=== PATIENT | female | born 1950 | race Caucasian/White ===

== ENCOUNTER 2023-05-16 07:24 | Outpatient (CLI) | payer MEDICARE, SELFPAY ==
[2023-05-16 18:37] LABS: Basophils Absolute Auto 0.1 K/mm3 (0.0-0.1); Eosinophils Absolute Auto 0.4 K/mm3 (0-0.3); Eosinophils Percent Auto 4.3 % (0-4.4); Hematocrit 43.8 % (37.0-47.0); Hemoglobin 13.5 g/dL (12.0-15.0); Immature Granulocyte Absolute 0.03 K/mm3 (0.00-0.031); Immature Granulocyte Percent A 0.3 % (0-0.5); Lymphocytes Absolute Auto 2.56 K/mm3 (0.9-3.2); Lymphocytes Percent Auto 26.8 % (18.3-44.2); Mean Corpuscular HGB Conc 30.8 g/dl (32-36); Mean Corpuscular Volume 100.7 fl (80-100); Mean Platelet Volume 11.9 fl (7.4-10.4); Monocytes Absolute Auto 0.9 K/mm3 (0.1-0.6); Monocytes Percent Auto 9.1 % (2.6-8.5); Neutrophils Absolute Auto 5.6 K/mm3 (1.3-6.7); Neutrophils Percent Auto 58.5 % (45.5-73.1); Platelet Count Result 203 k/mm3 (150-375); Red Blood Count 4.35 M/mm3 (4.2-5.4); Red Cell Distribution Width 14.6 % (11.5-14.5); White Blood Count 9.6 K/mm3 (4.5-10.0)
[2023-05-16 18:59] LABS: Albumin Level 4.3 g/dL (3.5-5.1); Anion Gap 6 mmol/L (8-16); Blood Urea Nitrogen 35 mg/dL (7-17); Calcium 10.4 mg/dL (8.4-10.2); Carbon Dioxide 28 mmol/L (22-30); Chloride 105 mmol/L (98-107); Cholesterol 158 mg/dL (0-200); Estimated Glomerular Filt Rate 25; Glucose 136 mg/dL (65-110); HDL Direct 48 mg/dL; Phosphorus 4.2 mg/dL (2.5-4.5); Potassium 4.7 mmol/L (3.4-5.0); Sodium 139 mmol/L (137-145); Triglycerides 84 mg/dL (<150)
[2023-05-16 19:10] LABS: LDL Cholesterol Direct 69 mg/dL
[2023-05-16 19:16] LABS: Vitamin D 25 Hydroxy 71.4 ng/mL
[2023-05-16 19:38] LABS: Parathyroid Intact 57.5 pg/mL (7.5-53.5)
[2023-05-16 19:55] LABS: Creatinine Urine 75.6 mg/dL
[2023-05-16 20:00] LABS: MALB Creatinine Ratio 56.9 mg/g (0-30)
[2023-05-16 21:12] LABS: Hemoglobin A1C 7.6 % (<5.7)
== END 2023-05-16 07:25 | disposition home or self-care (01) ==
PROVIDERS: PCP Nurse Practitioner Adult Health; Visit Provider Nurse Practitioner Adult Health
DX: I12.9 Hypertensive chronic kidney disease with stage 1 through stage 4 chronic kidney disease, or unspecified chronic kidney disease (principal); N18.4 Chronic kidney disease, stage 4 (severe); R73.03 Prediabetes; E55.9 Vitamin D deficiency, unspecified
CPT/HCPCS: 36415; 80061; 80069; 82043; 82306; 83036; 83970; 85025

== ENCOUNTER 2023-09-17 09:46 | Outpatient (CLI) | payer MEDICARE, SELFPAY ==
[2023-09-17 20:21] LABS: Creatinine Urine 197.9 mg/dL; Total Protein Urine Random 22 mg/dL; Ur Ttl Prot Creatinine Ratio 0.11 mg/mg (0-0.20)
[2023-09-17 22:36] LABS: Albumin Level 4.1 g/dL (3.5-5.1); Anion Gap 9 mmol/L (8-16); Blood Urea Nitrogen 31 mg/dL (7-17); Calcium 10.9 mg/dL (8.4-10.2); Carbon Dioxide 26 mmol/L (22-30); Chloride 104 mmol/L (98-107); Estimated Glomerular Filt Rate 21; Glucose 129 mg/dL (65-110); Phosphorus 3.3 mg/dL (2.5-4.5); Potassium 4.3 mmol/L (3.4-5.0); Sodium 139 mmol/L (137-145)
== END 2023-09-17 09:47 | disposition home or self-care (01) ==
LOC: ANHBWCLAB 09:50
PROVIDERS: PCP Nurse Practitioner Adult Health; Visit Provider Internal Medicine Nephrology
DX: I12.9 Hypertensive chronic kidney disease with stage 1 through stage 4 chronic kidney disease, or unspecified chronic kidney disease (principal); N18.4 Chronic kidney disease, stage 4 (severe)
CPT/HCPCS: 36415; 80069; 82570; 84156

== ENCOUNTER 2024-01-14 07:49 | Outpatient (CLI) | payer MEDICARE, SELFPAY ==
[2024-01-14 19:05] LABS: Albumin Level 4.1 g/dL (3.5-5.1); Anion Gap 6 mmol/L (4-12); Blood Urea Nitrogen 36 mg/dL (7-17); Calcium 10.4 mg/dL (8.4-10.2); Carbon Dioxide 25 mmol/L (22-30); Chloride 104 mmol/L (98-107); Estimated Glomerular Filt Rate 25; Glucose 103 mg/dL (65-110); Phosphorus 3.5 mg/dL (2.5-4.5); Potassium 4.8 mmol/L (3.4-5.0); Sodium 135 mmol/L (137-145)
[2024-01-14 19:33] LABS: Creatinine Urine 73.6 mg/dL; Total Protein Urine Random 20 mg/dL; Ur Ttl Prot Creatinine Ratio 0.27 mg/mg (0-0.20)
[2024-01-14 21:30] LABS: Parathyroid Intact 45.1 pg/mL (7.5-53.5)
== END 2024-01-14 07:50 | disposition home or self-care (01) ==
PROVIDERS: PCP Nurse Practitioner Adult Health; Visit Provider Internal Medicine Nephrology
DX: E55.9 Vitamin D deficiency, unspecified (principal); N25.81 Secondary hyperparathyroidism of renal origin; I12.9 Hypertensive chronic kidney disease with stage 1 through stage 4 chronic kidney disease, or unspecified chronic kidney disease; N18.4 Chronic kidney disease, stage 4 (severe)
CPT/HCPCS: 36415; 80069; 82306; 82570; 83970; 84156

== ENCOUNTER 2024-01-21 11:11 | Outpatient (CLI) | payer MEDICARE, SELFPAY ==
[2024-01-21 18:48] LABS: Basophils Absolute Auto 0.1 K/mm3 (0.0-0.1); Basophils Percent Auto 0.7 % (0.2-1.2); Eosinophils Absolute Auto 0.3 K/mm3 (0-0.3); Eosinophils Percent Auto 3.4 % (0-4.4); Hematocrit 43.4 % (37.0-47.0); Hemoglobin 13.7 g/dL (12.0-15.0); Immature Granulocyte Absolute 0.02 K/mm3 (0.00-0.031); Immature Granulocyte Percent A 0.2 % (0-0.5); Lymphocytes Absolute Auto 3.07 K/mm3 (0.9-3.2); Lymphocytes Percent Auto 31.4 % (18.3-44.2); Mean Corpuscular HGB Conc 31.6 g/dl (32-36); Mean Corpuscular Hemoglobin 31.4 pg (26-34); Mean Corpuscular Volume 99.3 fl (80-100); Mean Platelet Volume 11.8 fl (7.4-10.4); Monocytes Absolute Auto 0.9 K/mm3 (0.1-0.6); Monocytes Percent Auto 9.6 % (2.6-8.5); Neutrophils Absolute Auto 5.4 K/mm3 (1.3-6.7); Neutrophils Percent Auto 54.7 % (45.5-73.1); Platelet Count Result 200 k/mm3 (150-375); Red Blood Count 4.37 M/mm3 (4.2-5.4); Red Cell Distribution Width 13.6 % (11.5-14.5); White Blood Count 9.8 K/mm3 (4.5-10.0)
[2024-01-21 20:04] LABS: Thyroid Stimulating Hormone 0.831 uIU/mL (0.465-4.680)
[2024-01-21 21:27] LABS: Hemoglobin A1C 6.3 % (<5.7)
== END 2024-01-21 11:12 | disposition home or self-care (01) ==
PROVIDERS: PCP Nurse Practitioner Adult Health; Visit Provider Nurse Practitioner Adult Health
DX: R73.03 Prediabetes (principal); R61 Generalized hyperhidrosis
CPT/HCPCS: 36415; 83036; 84443; 85025

== ENCOUNTER 2024-05-13 12:10 | Outpatient (CLI) | payer MEDICARE, SELFPAY ==
[2024-05-13 20:22] LABS: Albumin Level 4.3 g/dL (3.5-5.1); Anion Gap 10 mmol/L (4-12); Blood Urea Nitrogen 40 mg/dL (7-17); Calcium 10.4 mg/dL (8.4-10.2); Carbon Dioxide 24 mmol/L (22-30); Chloride 100 mmol/L (98-107); Creatinine Urine 78.3 mg/dL; Estimated Glomerular Filt Rate 25; Glucose 100 mg/dL (65-110); Phosphorus 3.4 mg/dL (2.5-4.5); Potassium 4.6 mmol/L (3.4-5.0); Sodium 134 mmol/L (137-145); Total Protein Urine Random 13 mg/dL; Ur Ttl Prot Creatinine Ratio 0.17 mg/mg (0-0.20)
== END 2024-05-13 12:11 | disposition home or self-care (01) ==
PROVIDERS: PCP Family Medicine; Visit Provider Internal Medicine Nephrology
DX: I12.9 Hypertensive chronic kidney disease with stage 1 through stage 4 chronic kidney disease, or unspecified chronic kidney disease (principal); N18.4 Chronic kidney disease, stage 4 (severe)
CPT/HCPCS: 36415; 80069; 82570; 84156

== ENCOUNTER 2024-06-04 09:20 | Outpatient (CLI) | payer MEDICARE, SELFPAY ==
[2024-06-04 10:04] LABS: Alanine Aminotransferase 16 U/L (6-35); Albumin Level 4.2 g/dL (3.5-5.1); Alkaline Phosphatase 47 U/L (38-126); Anion Gap 6 mmol/L (4-12); Aspartate Amino Transferase 29 U/L (14-36); Bilirubin,Total 0.6 mg/dL (0.2-1.3); Blood Urea Nitrogen 43 mg/dL (7-17); Calcium 10.1 mg/dL (8.4-10.2); Carbon Dioxide 28 mmol/L (22-30); Chloride 102 mmol/L (98-107); Estimated Glomerular Filt Rate 23; Glucose 113 mg/dL (65-110); Phosphorus 3.7 mg/dL (2.5-4.5); Potassium 4.5 mmol/L (3.4-5.0); Sodium 136 mmol/L (137-145)
[2024-06-04 10:47] LABS: Parathyroid Intact 56.5 pg/mL (14.5-75.2)
[2024-06-04 10:50] LABS: Free T4 Free Thyroxine 0.91 ng/mL (0.78-2.19)
[2024-06-04 10:52] LABS: Creatinine Urine 54.1 mg/dL
[2024-06-04 10:54] LABS: Creatinine 24 Hour Urine 0.9 gm/24 (0.8-1.8); Total Volume 24 Hour Urine 1800 ml
[2024-06-05 08:39] LABS: Protein, Total 6.4 g/dL (6.1-8.1)
[2024-06-05 12:33] LABS: Ionized Calcium 5.3 mg/dL (4.7-5.5)
[2024-06-08 10:14] LABS: Total Volume 1800 mL
[2024-06-08 15:43] LABS: Albumin 3.9 g/dL (3.8-4.8); Alpha 1 Globulin 0.3 g/dL (0.2-0.3); Alpha 2 Globulin 0.8 g/dL (0.5-0.9); Beta 1 Globulin 0.5 g/dL (0.4-0.6); Gamma Globulin 0.7 g/dL (0.8-1.7)
[2024-06-16 07:39] LABS: Reference Lab Test Name Alk Phos Bone Spec
[2024-06-16 07:40] LABS: Reference Lab Test Result 9.3
[2024-06-19 20:23] LABS: Collagen Type I C-Telopeptide 728 pg/mL
== END 2024-06-04 09:21 | disposition home or self-care (01) ==
PROVIDERS: PCP Family Medicine; Visit Provider Internal Medicine
DX: M81.0 Age-related osteoporosis without current pathological fracture (principal); N18.4 Chronic kidney disease, stage 4 (severe); E55.9 Vitamin D deficiency, unspecified; R73.03 Prediabetes
CPT/HCPCS: 36415; 80053; 81050; 82330; 82340; 82523; 82570; 83970; 84100; 84155; 84165; 84439; 84443

== ENCOUNTER 2024-06-25 08:31 | Outpatient (CLI) | payer MEDICARE, SELFPAY ==
--- NOTE | ~2024-06-25 | CT_ITS ---
EXAMINATION:CT diagnostic chest wo con DATE: 06/25/2024 08:44 INDICATION: Other nonspecific abnormal finding of lung field. TECHNIQUE: Computed tomography (CT) of the chest was performed without intravenous contrast. Automate d exposure control and iterative reconstruction technique were employed. The dose-length product (DLP ) was 199.79 mGy-cm. COMPARISON: None. FINDINGS: There is mild scarring at the lung apices. There is moderate emphysema. There is mild atele ctasis bilaterally. There are a few nodules in the lungs measuring up to 3 mm, likely benign. No pleu ral effusion. The heart size is normal. There are coronary artery calcifications. No pericardial effu salome. The central pulmonary arteries are enlarged, consistent with pulmonary arterial hypertension. P artially visualized is a supraumbilical ventral hernia containing fat. Partially visualized are numer ous cysts and hemorrhagic cysts in the kidneys. There is a 3.4 cm mass in right kidney measuring soft tissue attenuation. There are chronic fractures of multiple vertebral bodies. There is moderate thor acic spondylosis. IMPRESSION: 1. Moderate emphysema. 2. 3.4 cm right kidney mass, which may be a hemorrhagic cyst or less likely a neoplasm. Abdomen MRI o r CT without and with contrast is recommended. Reviewed, dictated and finalized at location A. IMPRESSION: 1. Moderate emphysema. 2. 3.4 cm right kidney mass, which may be a hemorrhagic cyst or less likely a n eoplasm. Abdomen MRI or CT without and with contrast is recommended.
== END 2024-06-25 08:32 | disposition home or self-care (01) ==
LOC: GOSHIMG 08:33
PROVIDERS: PCP Family Medicine; Visit Provider Family Medicine
DX: R91.8 Other nonspecific abnormal finding of lung field (principal); J43.9 Emphysema, unspecified; N28.89 Other specified disorders of kidney and ureter
CPT/HCPCS: 71250

== ENCOUNTER 2024-09-17 12:46 | Outpatient (CLI) | payer MEDICARE, SELFPAY ==
[2024-09-17 20:14] LABS: Albumin Level 4.3 g/dL (3.5-5.1); Anion Gap 6 mmol/L (4-12); Blood Urea Nitrogen 42 mg/dL (7-17); Carbon Dioxide 25 mmol/L (22-30); Chloride 107 mmol/L (98-107); Estimated Glomerular Filt Rate 22; Glucose 158 mg/dL (65-110); Parathyroid Intact 53.4 pg/mL (14.5-75.2); Phosphorus 3.6 mg/dL (2.5-4.5); Potassium 4.3 mmol/L (3.4-5.0); Sodium 138 mmol/L (137-145)
[2024-09-17 21:05] LABS: Creatinine Urine 63.5 mg/dL; Total Protein Urine Random 14 mg/dL; Ur Ttl Prot Creatinine Ratio 0.22 mg/mg (0-0.20)
[2024-09-17 21:19] LABS: Vitamin D 25 Hydroxy 75.4 ng/mL
== END 2024-09-17 12:47 | disposition home or self-care (01) ==
LOC: ANHBWCLAB 12:47
PROVIDERS: Visit Provider Internal Medicine Nephrology
DX: N25.81 Secondary hyperparathyroidism of renal origin (principal); E55.9 Vitamin D deficiency, unspecified; I12.9 Hypertensive chronic kidney disease with stage 1 through stage 4 chronic kidney disease, or unspecified chronic kidney disease; N18.4 Chronic kidney disease, stage 4 (severe)
CPT/HCPCS: 36415; 80069; 82306; 82570; 83970; 84156

== ENCOUNTER 2024-11-04 10:01 | Outpatient (CLI) | payer MEDICARE, SELFPAY ==
--- NOTE | ~2024-11-04 | DEXA_ITS ---
Bone Density Report Name: TIMUR BARBOUR Age: 73 Sex: Female Ethnicity: White Date of : 1950 Indication: postmenopausal; screening for osteoporosis; parental hip fracture; height loss; prior fracture; end stage renal disease; hysterectomy; Referring Provider: THOMAS MARIN Study: Bone densitometry was performed. Exam Date: November 04, 2024 Accession number: [id number] Bone Density: Region BMD T-score Z-score Classification AP Spine(L1-L4) 0.851 -1.8 0.4 Osteopenia Femoral Neck (Left) 0.613 -2.1 -0.2 Osteopenia Total Hip (Left) 0.763 -1.5 0.1 Osteopenia Femoral Neck (Right) 0.563 -2.6 -0.7 Osteoporosis Total Hip (Right) 0.713 -1.9 -0.3 Osteopenia Total Hip Mean 0.738 -1.7 -0.1 Osteopenia World Health Organization criteria for BMD impression classify patients as: Normal (T-score at or above -1.0), Osteopenia (T-score between -1.0 and -2.5), or Osteoporosis (T-score at or below -2.5). 10-year Fracture Risk: FRAX not reported because: Some T-score for Spine Total or Hip Total or Femoral Neck at or below -2.5 Prior hip or vertebral fracture Treated for osteoporosis Clinical Information Provided by Patient: Have had a previous hip or vertebral fracture Has had a low trauma fracture Parent has had a hip fracture Smokes Is being treated for osteoporosis Has used the following medications: Boniva (i.e. ibandronate), Fosamax (i.e. alendronate), Vitamin D, Calcium Has the following medical conditions: End stage renal disease, Hysterectomy Patient maximum height was 64 Menopause Age: 44 No regular weight bearing exercise Drinks caffeinated beverages Onset of menses at age 14 Number of children 1 Impression: The patient has established osteoporosis, based on the Right Femoral Neck T-score and the existence of a prior fracture. The patient has risk factors, including: parental hip fracture, smoking, previous fracture. Discussion: It is important to ask patients whether they are taking their medications and to encourage continued and appropriate compliance with their osteoporosis therapies to reduce fracture risk. It is also important to review their risk factors and encourage appropriate calcium and vitamin D intakes, exercise, fall prevention and other lifestyle measures. Follow-Up: Consider a repeat BMD and Vertebral Fracture Assessment (VFA) exam in 2 years or sooner if medically necessary, to reassess this patient's status. Reported by: SHIRLEY on 11/04/2024 10:35:00 AM. Reviewed, dictated and finalized at location ARoby COLON
--- OUTSIDE RECORDS SUMMARY | 2024-11-05 23:00 | XMS_ITS | Data Portability ---
[facility] [address] [place] [address] Care Team Providers Care Tube Teller Name Role Phone GRISELDA MARQUEZ Primary Care Provider SERENE GONZÁLES Sample Steamer JERRY WILKINS Orthopedic Surgeon [phone] THOMAS MARIN Foundry Finisher Assessment No assessment recorded. Plan of Treatment Reminders Order Date Submit Date Provider Last Modified By Organization Details Last Modified Time Details Appointments None record ed. Lab None record ed. Referral None record ed. Procedures None record ed. Surgeries None record ed. Imaging None record ed. Medication Orders None record ed. Patient TargetsNo targets recorded. Patient Instructions Encounter Date Encounter Id Patient Instructions Last Modified By Organization Details Last Modified Time 08/06/2024 [id number] Quitting Tobacco : Care Instructions [email or web address] Not available 08/06/2024 17:03:05 osteoporosis: care instructions [email or web address] Not available 08/06/2024 17:03:05 A healthy lifestyle: care instructions [email or web address] Not available 08/06/2024 17:03:05 I saw the patien t with the resident.?? I agree with the resident's assessment and plan as documented -Patient with chronic medical problems however records not available -Repeat blood pressure WNL -RTC in 3 months MD larry [email or web address] Not available 08/06/2024 10:07:58 Reason for Referral None Reported. Results Created Date Observation Date Name Description Value Unit Range Abnormal Flag Note LastModifiedBy Organization Detail LastModifiedTime Result Notes None recorded. Problems Name Problem SNOMED Code Status Onset Date Resolution Date Notes Provider Name and Address Organization Details Recorded Time Obesity 774213971 Active 2023 GRISELDA MARQUEZ MD Attn: Dulceherrera meyers,[address], [place], [address], [facility] - [facility] 4 09:29:25 Osteoporosis 73852209 Active 2023 Follows with endocrin ology. GRISELDA MARQUEZ MD Attn: Elizabeth [address]yers[address] [place], [address], [facility] - [facility] 5 12:06:43 Osteoporotic fracture Active 2023 GRISELDA MARQUEZ MD Attn: Elizabeth meyers,[address] [place], [address], [facility] - [facility] 4 09:39:57 Gastroesopha geal reflux disease 101690469 Active 2023 GRISELDA MARQUEZ MD Attn: Elizabeth meyers,[address] [place], [address], [facility] - [facility] 4 09:42:38 Neuropathy 756828890 Active 2023 GRISELDA MARQUEZ MD Attn: Elizabeth meyers,[address], [place], [address], [facility] - [facility] 4 10:50:23 Chronic kidney disease 731881399 Active 2023 Follows with nephrolo gy. 12/5- Cr 2.20, BUN 42, GFR 22 GRISELDA MARQUEZ MD Attn: Dulceherrera [address] [place], [address], [facility] - [facility] 4 23:35:22 Problem Notes None recorded. Procedures Surgical History Date Name Laterality Status Provider Name and Address Organization Details Recorded Time colonoscopy completed Rachel Traylor MA [place] - [facility] 08/06/2024 09:00:42 transposition of ulnar nerve at elbow completed GRISELDA MARQUEZ MD Attn: Accounting[address] [place], [address], [facility] - [facility] 08/06/2024 09:36:02 Imaging Results None recorded. Procedure Notes None recorded. Medical Equipment None Reported. Allergies Allergen ID Allergen Name Allergen Category Reaction Reaction Severity Criticality Documentation Date Start Date Code Code System Note Provider Name and Address Organization Details Recorded Time [id number] Ozempic medicatio n nausea severe Not available 08/06/202419903 07 RxNorm Not Available Not Available Not Available [id number] Iodinated contrast media (substanc e) medicatio n Not available Not available high 10/29/2024 71973 2004 SNOMED Not Available Not Available Not Available Medications Name Sig Start Date Stop Date Status Note LastModified by Organization Details LastModified Time atorvasta tin 40 mg tablet TAKE 1 TABLET BY MOUTH EVERY DAY AT BEDTIME active Not Available Not Available No t Available carvedilo l 25 mg tablet TAKE 1 TABLET BY MOUTH EVERY 12 HOURS WITH A MEAL/DEUCE D active Not Available Not Available No t Available carvedilo l 12.5 mg tablet TAKE 1 TABLET BY MOUTH TWICE DAILY WITH FOOD 08/06 completed stoped Not Available Not Available Not Available tizanidin e 4 mg tablet TAKE 1 TABLET BY MOUTH TWICE DAILY NEEDED active Prescrib ed by pain manageme nt Not Available Not Available Not Available prednison e 20 mg tablet TAKE 3 TABLETS BY MOUTH DAILY FOR 5 DAYS 08/06 completed Not Available Not Available Not Available Accu-Chek Softclix Lancets CHECK BLOOD SUGAR THREE TIMES DAILY DIRECTED 08/06 completed Not Available Not Available Not Available aspirin 81 mg tablet,de layed release Take 1 tablet every day by oral route. active Not Available Not Available No t Available tramadol 50 mg tablet TAKE 1 TABLET BY MOUTH EVERY 12 HOURS NEEDED FOR PAIN active Prescrib ed by pain manageme nt Not Available Not Available Not Available gabapenti n 300 mg capsule TAKE TWO CAPSULES BY MOUTH DAILY AT BEDTIME active Not Available Not Available No t Available omeprazol e 20 mg capsule,d elayed release Take 1 capsule every day by oral route. 2024 active Not Available Not Available Not Avai lable albuterol sulfate HFA 90 mcg/actua tion aerosol inhaler INHALE 2 PUFFS BY MOUTH EVERY 4-6 HOURS NEEDED FOR SHORTNES S OF BREATH OR WHEEZING 08/06 completed stopped Not Available Not Available Not Available fluticaso ne propionat e 50 mcg/actua tion nasal spray,brandon pension 1 spray each nostril once daily 2024 active Not Available Not Available Not Avai lable calcitrio l 0.25 mcg capsule TAKE 1 CAPSULE BY MOUTH 3 TIMES A WEEK active Prescrib ed by endo Not Available Not Available Not Available duloxetin e 30 mg capsule,d elayed release TAKE 1 CAPSULE BY MOUTH DAILY active Not Available Not Available No t Available duloxetin e 60 mg capsule,d elayed release TAKE 1 CAPSULE BY MOUTH DAILY active Not Available Not Available No t Available BD Ultra-Fin e Short Pen Needle 31 gauge x 5/16 DIRECTED WITH OZEMPIC 08/06 completed Not Available Not Available Not Available diclofena c 1 % topical gel APPLY 2 GRAMS TOPICALL Y TO THE AFFECTED AREA THREE TIMES DAILY active Not Available Not Available No t Available buprenorp yeni 7.5 mcg/hour weekly transderm al patch APPLY 1 PATCH TOPICALL Y TO THE SKIN 1 TIME A WEEK 10/27 completed stopped Not Available Not Available Not Available teriparat gamaliel 20 mcg/dose (620 mcg/2.48 mL) subcutane ous pen injector 08/06 completed Not Available Not Available Not Available Ozempic 0.25 mg or 0.5 mg (2 mg/3 mL) subcutane ous pen injector ADMINIST ER 0.25 MG UNDER THE SKIN WEEKLY FOR 4 WEEKS 08/06 completed stopped Not Available Not Available Not Available Vitals Date Recorded Body height Provider Name an d Address Organization Details Last Updated DateTime 08/06/2024 157.48 cm WESLEY Lezama [facility] 024 08:50:56 Date Recorded Body mass index (BMI) Body weight Provider Name and Address Organization Details Last Updated DateTime 08/06/2024 35.3 kg/m2 27456.03 g WESLEY Lezama [facility] 08/06/2024 08:51:05 Date Recorded Body temperature Provider Name a nd Address Organization Details Last Updated DateTime 08/06/2024 98.3 [degF] WESLEY Lezama [facility] 2023 08:51:54 Date Recorded Heart rate Provider Name an d Address Organization Details Last Updated DateTime 08/06/2024 68 /min Rachel WESLEY Traylor - [facility] 024 08:53:49 Date Recorded Respiratory rate Provider Name a nd Address Organization Details Last Updated DateTime 08/06/2024 18 /min WESLEY Lezama - [facility] 024 08:55:10 Date Recorded Body height Provider Name an d Address Organization Details Last Updated DateTime 10/27/2024 157.48 cm Rachel WESLEY Traylor - [facility] 025 11:26:33 Date Recorded Body mass index (BMI) Body weight Provider Name and Address Organization Details Last Updated DateTime 10/27/2024 36.1 kg/m2 52930.4 g Rachel WESLEY Traylor - [facility] 10/27/2024 11:26:40 Date Recorded Body temperature Provider Name a nd Address Organization Details Last Updated DateTime 10/27/2024 98.3 [degF] Rachel WESLEY Traylor - [facility] 2024 11:26:44 Date Recorded Heart rate Provider Name an d Address Organization Details Last Updated DateTime 10/27/2024 84 /min Rachel WESLEY Traylor - [facility] 025 11:26:48 Date Recorded Respiratory rate Provider Name a nd Address Organization Details Last Updated DateTime 10/27/2024 18 /min Rachel WESLEY Traylor - [facility] 025 11:26:50 Date Recorded Systolic blood pressure Diastolic blood pressure Provider Name and Address Organization Details Last Updated DateTime 08/06/2024 144 mm[Hg] 80 mm[Hg] Rachel Traylor WESLEY [place] - [facility] 08/06/2024 08:55:27 Date Recorded Systolic blood pressure Diastolic blood pressure Provider Name and Address Organization Details Last Updated DateTime 08/06/2024 104 mm[Hg] 70 mm[Hg] PLAC[place]O [place] - [facility] 08/06/2024 10:07:44 Date Recorded Systolic blood pressure Diastolic blood pressure Provider Name and Address Organization Details Last Updated DateTime 10/27/2024 124 mm[Hg] 80 mm[Hg] Rachel Traylor MA [facility] 10/27/2024 11:29:25 Social History Question Answer Notes LastModified by Organizat ion Details LastModified Time Tobacco Smoking Status Current Every Day Smoker Rachel Traylor MA null, [facility] 08/06/2024 08:57:34 What Was The Date Of Your Most Recent Tobacco Screening? 10/27/2024 Information not available 10/27/2024 How Much Tobacco Do You Smoke? 0.5 PPD Information not available 08/06/2024 Has Tobacco Cessation Counseling Been Provided? Yes Information not available 08/06/2024 On What Date Was Tobacco Cessation Counseling Provided? 10/27/2024 Information not available 10/27/2024 How Many Years Have You Smoked Tobacco? 15 Information not available 08/06/2024 Sex: Female Functional Status None recorded. Mental Status None recorded. Family History Relationship Description Onset Age of this Age Resolved Age Notes LastModified by Organization Details LastModified Time Mother Hypertensive disorder [email or web address] Not available 08/06 08:59:57 Father Hypercholest erolemia [email or web address] Not available 08/06 09:00:19 Medical History Condition Response High Blood Pressure Y Acid Reflux (GERD) Y Kidney or Bladder Problems Y Diabetes Y Gynecological History Statement/Question Response Date of Last Mammogram Obstetrics History GPAL:G 0 P 0 0 0 0 Immunizations Vaccine Type Date Status Note Provider Nam e and Address Organization Details Recorded Time zoster recombinant 9 completed GRISELDA MARQUEZ MD Attn: Accounting[address] [place], [address], [facility] - [facility] 08/06/2024 09:27:55 Tdap 3 completed GRISELDA MARQUEZ MD Attn: Accounting[address] [place], [address], [facility] - [facility] 08/06/2024 09:27:55 Pneumococcal conjugate PCV 13 9 completed GRISELDA MARQUEZ MD Attn: Accounting[address] [place], [address], [facility] - [facility] 08/06/2024 09:27:55 zoster live 9 completed GRISELDA MARQUEZ MD Attn: Accounting,[address], [place], [address], [facility] - [facility] 08/06/2024 09:27:55 Past Encounters Encounter ID Performer Location Encounter Start Date Encounter Closed Date Diagnosis/Indication Diagnosis SNOMED-CT Code Diagnosis ICD10 Code Diagnosis Note [id number] Guanako Velasco MD [place] 14 IM [address] [facility] [address] [place] [address] 08/06/2024 08:43:45 08/27/2024 08:46:33 Obesity 181591596 E66.9 Healthy lifestyle encouraged including regular exercise of at least 150min per week, diet rich in plant based foods and low in added sugars, processed carbohydra caesar, and high salt foods. Nicotine dependence 5629 4008 F17.200 Smoking 1/2 pack per day. Discussed cessation. Osteoporosis 71905686 M8 1.0 Is following with endocrinyaneth perkins in [place]. Was taking teriparati de but after taking it for two years wanted to switch to q6 month injection but it is too expensive. Will follow up with her. Gastroesop hageal reflux disease 022799842 K21.9 Continue prilosec 20 mg daily. Health Concerns Section Related Observation LastModified by Organization Detai ls LastModified Time None Recorded Concern Status LastModified by Organization Details LastModified Time None Recorded Advance Directives Directive None Recorded Payers Encounter Date Sequence Insurance Name Policy Number Policy Miguel Covered Member ID Miguel Member ID Guarantor Name 08/06/2024 1 [facility] (MEDICARE REPLACEMENT/A DVANTAGE - HMO) [id number] Keiry Simon Brar [id number] Keiry Maykel Notes Date Note Type Note Provider Name and Address Organization Details Recorded Time 08/06/2024 text/html Keiry is a 73 y ear old female who presents to the clinic to establish care. Was told by prior doctor that she is not welcome back. Moved from [place] a year ago. Daughter liver here. CKD-Sees nephrology, appt in September Osteoporosis- Reports back fracture a few years ago that occurred while walking her dog- Saw Dr. Wilkins for OA pain- Was on teripratide; is seeing endocrinology in [place]- Has appt with pain management in August Depression/Anxiety- sees Aishwarya Prediabetes- Reports was started on ozempic. Stopped due to nausea. Trigger finger- s/p surgery GERD- takes prilosec 20 mg daily Had labs a couple of months ago. Guanako Velasco MD Attn: Accounting[address] [place], [address], [facility] - [facility] 08/26/2024 22:13:25 OBGyn Episode No OBEpisode recorded.
--- OUTSIDE RECORDS SUMMARY | 2024-11-05 23:01 | XMS_ITS ---
Author Organization Corporate Office Address [address] [place] [address] [address] [place] [address] Care Team Providers Care Engineer Sergeant Name Role Phone Felicia Ann CNP Primary Care Provider Felicia Novak Unavailable Unavailable Johann Langston MD [phone] REASON FOR VISIT requesting call back Social History Sex Assigned At : Social History Observation Description Sex Assigned At Female Encounters Encounter Location Date Provider Diagnosis [address] [place] [facility] [address] [place], [place] [id number] 06/03/2024 Johann Langston Plan Of Treatment No Information Progress Notes * Keiry BRAR NDOB:[birth year] (73 yo F)Acc No.[id number]:06/03/2024 Patient:?Keiry BRAR :1950???Age:73 Y???Sex:Female Address:[address], [address], [facility] [address] * true * Date:? Generated for Printi ng/Billie/eTransmitting on:?11/06/2024 12:01 AM EST
--- OUTSIDE RECORDS SUMMARY | 2024-11-05 23:01 | XMS_ITS | Encounter Summary ---
Author Organization [facility] Address [address] [place] [address] Care Team Providers Care Waist Presser Name Role Phone Arik Colbert MD Primary Care Provider [phone] Deon Corcoran MD Unavailable Encounter Details Date Type Department Care Team ([facility] st Contact Info) Description 04/02/2024 [facility] Post Discharge Follow up phone call [address] [address] Katerine Gipson, RN Social History Tobacco Use Types Packs/Day Years Used Date Smoking Tobacco: Every Day Cigarettes 0.5 52 Smokeless Tobacco: Never Alcohol Use Standard Drinks/Week Comments Yes 0 (1 standard drink = 0.6 oz pur e alcohol) AUDIT-C Answer Date Recorded Q1: How often do you have a drink containing alcohol? Never 03/16/2024 Q2: How many drinks containi ng alcohol do you have on a typical day when you are drinking? Patient does not drink Frequency of Binge Drinking Not on file 12/2023 Personal Safety Answer Date Recorded Have you ever been in or are you currently in a harmful physical or emotional relationship or is someone making you feel afraid or unsafe? 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
--- OUTSIDE RECORDS SUMMARY | 2024-11-05 23:01 | XMS_ITS | Clinical Summary ---
Author Organization [facility] Address [address], [facility] [address] [place] [address] Phone Care Team Providers Care Consulting Intern Name Role Phone Mingo Guadarrama APRN, CHARI Primary Care Provider Allergies Active Allergy Reactions Criticality Noted Date Comments Egg-Derived Products Unknown Other Hives CT Scan Dye - Hives Medications amLODIPine (NORVASC) 5 MG Tablet TAKE 1 TABLET BY MOUTH ONCE DAILY 90 Tab 1 6 Active Additional Information Patient not taking.Reported on 04/04/2016 busPIRone (BUSPAR) 15 MG Tablet 1 pill twice daily 60 Tab 5 6 Active metoprolol tartrate (LOPRESSOR) 50 MG Tablet Take 1 Tab by mouth 2 times daily. 60 Tab 6 6 Active valsartan-hydro CHLOROthiazide (DIOVAN-HCT) 80-12.5 MG Tablet Take 1 Tab by mouth daily. 30 Tab 6 6 Active traMADol (ULTRAM) 50 MG Tablet Take 1 Tab by mouth every 8 hours as needed for Pain. 90 Tab 5 6 Active Active Problems Problem Noted Date Diagnosed Date HTN (hypertension) Osteoarthritis Neck pain Immunizations Immunization Administration Dates Next Due Tetanus Toxoid, Unspecified Formulation 12/13/19 14 Family History Medical History Relation Name Comments Hypertension Father Kidney Disease Mother Relation Name Status Comments Father Mother Social History Tobacco Use Types Packs/Day Years Used Date Smoking Tobacco: Every Day Cigarettes Smokeless Tobacco: Never Tobacco Cessation:Ready to Q uit: No; Counseling Given: Yes Alcohol Use Standard Drinks/Week Comments No 0 (1 standard drink = 0.6 oz pur e alcohol) Comments No Sex and Gender Information Value Date Recorded Sex Assigned at Female 05/07/2024 4:21 AM CDT Legal Sex Female 12:16 AM CDT Gender Identity Female 05/07/2024 4:21 AM CDT Sexual Orientation Straight 05/07/2024 4: 21 AM CDT Last Filed Vital Signs Vital Sign Reading Time Taken Comments Blood Pressure 147/88 04/29/2017 6:34 AM CDT Pulse 114 04/29/2017 6:34 AM CDT Temperature 36.3 ??C (97.3 ??F) 04/29/2017 6:34 AM CD T Respiratory Rate 18 04/29/2017 6:34 AM CDT Oxygen Saturation 95% 04/29/2017 6:34 AM CDT Inhaled Oxygen Concentration - - Weight 95.3 kg (210 lb) 04/29/2017 6:34 AM CDT Height 162.6 cm (5' 4 ) 04/29/2017 6:34 AM CDT Body Mass Index 36.05 04/29/2017 6:34 AM CDT Plan of Treatment Health Maintenance Due Date Last Done Comments DEXA Bone Density 1950 TdaP Immunization 1950 Colonoscopy 1997 Colorectal Cancer Screening 1997 Cologuard 2002 Immunochemical Fecal Occult Blood 2002 Mammogram 2002 Pneumococcal Immunization (5 0+ years) (1 of 1 - PCV) 2002 Zoster Immunization (1 of 2) 2002 Influenza Immunization (#1) 2024 SARS-COV-2 Immunization ( - 2023- season) 2024 Respiratory Syncytial Virus (RSV) Immunization (Adult) (1 - 1-dose 75+ series) 2027 Hepatitis C Virus (HCV) Screening Completed 016 Hepatitis B Immunization Aged Out No longer eligible based on patient's age to complete this topic Meningococcal Immunization (ACWY) Aged Out No longer eligible based on patient's age to complete this topic Rotavirus Immunization Aged Out No lo nger eligible based on patient's age to complete this topic Procedures Procedure Name Priority Date/Time Associated Diagnosis Comments HEPATITIS PANEL ACUTE (AHP) Routine 03/07/2016 7:00 AM CDT CKD (chronic kidney disease), stage III (HCC) from Last 3 Months or Most Recently Relevant to Health Maintenance Results * HEPATITIS PANEL ACUTE (AHP) (03/07/2016 7:00 AM CDT) HEPATITIS A IGM ANTIBODY NON DETECTED NON DETECTED 03/07/2016 9:18 PM CDT [facility] Comment: IGM Antibodies to HAV not detected. ??Does not exclude early acute or recovered HAV infection. HEP B CORE AB (IGM) NON DETECTED NON DETECTED 03/07/2016 9:18 PM CDT [facility] Comment: IGM anti-HBC not detected. ??Does not exclude the possibility of exposure to or infection with HBV. HEPATITIS B SURFACE ANTIGEN NON DETECTED NON DETECTED 03/07/2016 9:18 PM CDT [facility] hepatitis C antibody 0.07 <1 S/CO 03/07/2016 9:18 PM CDT [facility] Comment: Signal/Cutoff ratio ??< 0.79 is Nondetected Signal/Cutoff ratio 0.80-0.99 is Grayzone Signal/Cutoff ratio > 0.99 is Detected Supplemental assays are recommended if signal/cutoff ratio is >/=1.00. ??Signal/cutoff ratio result >/= 5.00 is 97% predictive of positivity for recombinant immunoblot assay (RIBA) and will be reported to the [place] Department of Public [facility] as required. Blood specimen (specimen) Venipuncture / Unknown 03/07/2016 7:00 AM CDT 03/07/2016 10:28 AM CDT us Nikolas Colmenares MD HEMATOLOGY ORDERABLES Final Re sult [facility] [address] [place] [address] from Last 3 Months or Most Recently Relevant to Health Maintenance Insurance [address] [address] [facility] Care Teams Consulting Intern Relationship Specialty Start Date End Date Mingo Guadarrama, [employer], SALES AND MARKETING ENGINEER [address] [place] [address] PCP - General Certified Nurse Practitioner 10/05/16
--- OUTSIDE RECORDS SUMMARY | 2024-11-05 23:01 | XMS_ITS | Referral Summary ---
Author Organization [facility] Address [address] [place] [address] Care Team Providers Care Master Printer Name Role Phone Arik Colbert MD Primary Care Provider [phone] Deon Corcoran MD Unavailable Encounters Date Type Department Care Team Description 10/27/2024 12:[address] REPORTER - 10/27/2024 11:[address] REPORTER Hospital Encounter [facility] [address] [place] [id number] Lumbar radiculopathy; Radiculopathy, cervical; Radiculopathy, thoracic region; Arthralgia of shoulder, unspecified laterality Discharge Disposition: Discharge to home or self care from Last 3 Months Allergies Active Allergy Reactions Criticality Noted Date Comments Iodinated Contrast Media Unknown 04/11/2021 Other Hives Medium 04/11/2021 Bed Bugs Medications DULoxetine DR (CYMBALTA) 60 mg capsuleIndicati ons:Anxiety with Depression Take 1 capsule (60 mg total) by mouth nightly Active TiZANidine (ZANAFLEX) 4 mg capsuleIndicati ons:Muscle Spasm Take 1 capsule (4 mg total) by mouth 2 (two) times a day as needed for muscle spasms Active calcium carbonate-vitam in D3 (CALTRATE 600 + D) 1500 mg (600 mg elemental) -400 units per tablet Take 1 tablet by mouth daily Active cholecalciferol (VITAMIN D-3) 2000 unit tablet Take 1 tablet (2,000 Units total) by mouth daily Active cyanocobalamin (Vitamin B-12) 1,000 mcg tabletIndicatio ns:Prevention of Vitamin B12 Deficiency Take 1 tablet (1,000 mcg total) by mouth daily Active calcitRIOL (ROCALTROL) 0.25 mcg capsule Take 1 capsule (0.25 mcg total) by mouth 3 (three) times a week Takes on sat//sat Active vitamin B complex with vitamin C tabletIndicatio ns:Vitamin Deficiency Prevention Take 1 tablet by mouth daily Active acetaminophen (TYLENOL) 325 mg tablet Take 1,000 mg by mouth Active aspirin 81 mg chewable tablet Take 1 tablet (81 mg total) by mouth daily Active traMADoL (ULTRAM) 50 mg tablet Take 1 tablet (50 mg total) by mouth every 6 (six) hours as needed for pain 12 tablet 4 Active gabapentin (NEURONTIN) 300 mg capsule Take 3 capsules (900 mg total) by mouth nightly 90 capsule 1 4 Active diclofenac sodium (VOLTAREN) 1 % gel Apply 2 g topically 3 (three) times a day 200 g 1 4 Active carvediloL (COREG) 25 mg tablet TAKE 1 TABLET BY MOUTH EVERY 12 HOURS WITH FOOD 4 Active atorvastatin (LIPITOR) 40 mg tablet Take 1 tablet (40 mg total) by mouth nightly at bedtime Active Active Problems Problem Noted Date Diagnosed Date Personal history of colonic polyps 03/18/2024 Malignant neoplasm of colon 03/16/2024 Tubulovillous adenoma 03/16/2024 Unintentional weight loss 03/16/2024 Left carpal tunnel syndrome 09/27/2023 Cubital tunnel syndrome on left 09/27/2023 Guyon syndrome, 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 Denies 05/14/2024 Comments No Sex and Gender Information Value Date Recorded Sex Assigned at Not on file Legal Sex Female 3:[address] REPORTER Gender Identity Not on file Sexual Orientation Not on file Last Filed Vital Signs Vital Sign Reading Time Taken Comments Blood Pressure 126/71 05/14/2024 9:26 AM CDT Pulse 61 05/14/2024 9:26 AM CDT Temperature 36.8 ??C (98.2 ??F) 05/14/2024 9:26 AM CD T Respiratory Rate 16 05/14/2024 9:26 AM CDT Oxygen Saturation 99% 05/14/2024 9:26 AM CDT Inhaled Oxygen Concentration - - Weight 83.9 kg (185 lb) 05/14/2024 7:46 AM CDT Height 157.5 cm (5' 2 ) 05/14/2024 7:46 AM CDT Body Mass Index 33.84 05/14/2024 7:46 AM CDT Plan of Treatment Not on file Procedures Procedure Name Priority Date/Time Associated Diagnosis Comments XR SHOULDER LEFT 2 OR MORE VIEWS Schedule Routine, Read Routine (OP Routine) 10/27/2024 12:[address] REPORTER Arthralgia of shoulder, unspecified laterality XR SHOULDER RIGHT 2 OR MORE VIEWS Schedule Routine, Read Routine (OP Routine) 10/27/2024 12:[address] REPORTER Arthralgia of shoulder, unspecified laterality COLONOSCOPY 05/14/2024 7:48 AM CDT DEXA AXIAL SKELETON BONE DENSITY 1 OR MORE SITES Schedule Routine, Read Routine (OP Routine) 06/05/2023 8:14 AM CDT Asymptomatic menopausal state SCREENING MAMMOGRAM BILATERAL W LUCAS Schedule Routine, Read Routine (OP Routine) 11/11/2017 1:[address] REPORTER Screening breast examination from Last 3 Months or Most Recently Relevant to Health Maintenance Results * XR Shoulder Right 2 or More Views (10/27/2024 12:[address] REPORTER) Anatomical Region Laterality Modality Upper Extremities, Shoulder Right Comp uted Radiography 10/27/2024 9:[address] REPORTER Narrative 10/27/2024 9:[address] REPORTER EXAM DESCRIPTION: XR SHOULDER RIGHT 2 OR MORE VIEWS; XR SHOULDER LEFT 2 OR MORE VIEWS REASON FOR STUDY: pain ?? Right shoulder pain for a few months ??Was reaching for cat and thinks she pulled something. ??No surgery ? FINDINGS: Four views each shoulder submitted without comparison. No acute fracture. ??Alignment is normal. ??There is mild right glenohumeral joint osteoarthritis. ??The left glenohumeral joint is normal. ??There is mild left acromioclavicular joint osteoarthritis. IMPRESSION: Mild right glenohumeral joint osteoarthritis. Mild left acromioclavicular joint osteoarthritis. THIS IS AN ELECTRONICALLY VERIFIED FINAL REPORT 10/27/2024 9:07 PM - Electronically signed by ??Malvin Garcia M.D. MF: [email or web address] D: ??10/27/2024 9:07 PM T: ??10/27/2024 9:07 PM Report ID: [id number] Reading Location: ??[id number] Procedure Note Malvin Garcia MD - 10/27/2024 EXAM DESCRIPTION: XR SHOULDER RIGHT 2 OR MORE VIEWS; XR SHOULDER LEFT 2 OR MORE VIEWS REASON FOR STUDY: pain Right shoulder pain for a few months Was reaching for cat and thinks she pulled something. No surgery FINDINGS: Four views each shoulder submitted without comparison. No acute fracture. Alignment is normal. There is mild right glenohumeral joint osteoarthritis. The left glenohumeral joint is normal. There ismild left acromioclavicular joint osteoarthritis. IMPRESSION: Mild right glenohumeral joint osteoarthritis. Mild left acromioclavicular joint osteoarthritis. THIS IS AN ELECTRONICALLY VERIFIED FINAL REPORT 10/27/2024 9:07 PM - Electronically signed by Malvin Garcia M.D. MF: [email or web address] Report ID: [id number] Reading Location: [id number] Adarsh Velarde MD IMG XR PROCEDURES Fi nal Result * XR Shoulder Left 2 or More Views (10/27/2024 12:[address] REPORTER) Anatomical Region Laterality Modality Upper Extremities, Shoulder Left Comp uted Radiography 10/27/2024 9:[address] REPORTER Narrative 10/27/2024 9:[address] REPORTER EXAM DESCRIPTION: XR SHOULDER RIGHT 2 OR MORE VIEWS; XR SHOULDER LEFT 2 OR MORE VIEWS REASON FOR STUDY: pain ?? Right shoulder pain for a few months ??Was reaching for cat and thinks she pulled something. ??No surgery ? FINDINGS: Four views each shoulder submitted without comparison. No acute fracture. ??Alignment is normal. ??There is mild right glenohumeral joint osteoarthritis. ??The left glenohumeral joint is normal. ??There is mild left acromioclavicular joint osteoarthritis. IMPRESSION: Mild right glenohumeral joint osteoarthritis. Mild left acromioclavicular joint osteoarthritis. THIS IS AN ELECTRONICALLY VERIFIED FINAL REPORT 10/27/2024 9:07 PM - Electronically signed by ??Malvin Garcia M.D. MF: [email or web address] D: ??10/27/2024 9:07 PM T: ??10/27/2024 9:07 PM Report ID: [id number] Reading Location: ??[id number] Procedure Note Malvin Garcia MD - 10/27/2024 EXAM DESCRIPTION: XR SHOULDER RIGHT 2 OR MORE VIEWS; XR SHOULDER LEFT 2 OR MORE VIEWS REASON FOR STUDY: pain Right shoulder pain for a few months Was reaching for cat and thinks she pulled something. No surgery FINDINGS: Four views each shoulder submitted without comparison. No acute fracture. Alignment is normal. There is mild right glenohumeral joint osteoarthritis. The left glenohumeral joint is normal. There ismild left acromioclavicular joint osteoarthritis. IMPRESSION: Mild right glenohumeral joint osteoarthritis. Mild left acromioclavicular joint osteoarthritis. THIS IS AN ELECTRONICALLY VERIFIED FINAL REPORT 10/27/2024 9:07 PM - Electronically signed by Malvin Garcia M.D. MF: [email or web address] Report ID: [id number] Reading Location: [place] [id number] [place] Adarsh Velarde MD IMG XR PROCEDURES Fi nal Result * Colonoscopy (05/14/2024 7:48 AM CDT) Anatomical Region Laterality Modality Other Narrative Procedure Note Mariana Mon MD - 05/14/2024 7:48 AM CDT [facility] Patient Name: Keiry Brar Procedure Date: 05/14/2024 7:48 AM Date of : 1950 Admit Type: Outpatient Age: 73 Gender: Female Attending MD: Mariana Mon M.D. Room: [facility] 1 Note Status: Finalized Patient Profile: This is a 73 year old female. Patient hadcolonoscopy recently and polyps removed, 1 of the polyps noted with high-grade dysplasia and intramucosalcarcinoma. Surveillance. No family history of colon cancer.She has a smoker Procedure: Colonoscopy Indications: Surveillance: Personal history of piecemeal removalof large sessile adenoma on last colonoscopy (lessthan 6 months ago), Last colonoscopy within the past 6months Referring MD: Arik Colbert M.D. Providers: Mariana Mon M.D. Impression: - Colon preparation is not optimum overall - One 15 mm polyp in the transverse colon, removed with a cold snare. Resected and retrieved. - Diverticulosis in the sigmoid colon. - Internal hemorrhoids. Recommendation: - Await pathology results. - Repeat colonoscopy in 1 year for surveillance. - Continue present medications. Medicines: Monitored Anesthesia Care Complications: No immediate complications. Estimated Blood Loss: Estimated blood loss: none. Procedure: Pre-Anesthesia Assessment: - Prior to the procedure, a History and Physicalwas performed, and patient medications and allergieswere reviewed. The patient's tolerance of previous anesthesia was also reviewed. The risks andbenefits of the procedure and the sedation options and risks were discussed with the patient. All questions were answered, and informed consent was obtained. Prior Anticoagulants: The patient has taken noanticoagulant or antiplatelet agents. ASA Grade Assessment: Per anesthesia note and evaluation. After reviewing the risks and benefits, the patient was deemed in satisfactory condition to undergo the procedure. The benefits, risks and alternatives of theprocedure and sedation were discussed and informed consentwas obtained. All questions were answered. Please referto the signed informed consent document in the medical record. The bowel preparation used was Miralax and bisacodyl tablets via split dose instruction. The scope was passed under direct vision. The Pediatric Colonoscope [id number]-H190L [id number] was introducedthrough the anus and advanced to the the cecum, identifiedby appendiceal orifice and ileocecal valve. Thequality of the bowel preparation was fair. Bowel prep was administered using a split dose. Findings: The perianal and digital rectal examinations were normal. The ascending colon and cecum appeared normal. A 15 mm polyp was found in the transverse colon. The polyp was semi-sessile. The polyp was removed with a cold snare. Resection and retrieval were complete. The rectum, sigmoid colon and descending colon appeared normal. No residual polyps noted A few small-mouthed diverticula were found in the sigmoid colon. Internal hemorrhoids were found during retroflexion. The hemorrhoids were medium-sized. Electronically signed by Mariana Mon M.D. Mariana Mon M.D. 05/14/2024 9:09:34 AM Number of Addenda: 0 Note Initiated On: 05/14/2024 7:48 AM Procedure Code(s): --- Professional --- 72264, Colonoscopy, flexible; with removal of tumor(s), polyp(s), or other lesion(s) by snare technique Diagnosis Code(s): --- Professional --- K64.8, Other hemorrhoids D12.3, Benign neoplasm of transverse colon (hepatic flexure orsplenic flexure) Z09, Encounter for follow-up examination after completed treatmentfor conditions other than malignant neoplasm Z86.010, Personal history of colonic polyps K57.30, Diverticulosis of large intestine without perforation orabscess without bleeding CPT copyright 2020 [employer]. All rights reserved. The codes documented in this report are preliminary and upon [place] guide reviewmay be revised to meet current compliance requirements. Recognized by the [employer] [employer] for promoting quality in endoscopy Mariana Mon MD ENDOSCOPY PROCEDURES Final Result * Dexa Axial Skeleton Bone Density 1 or 2 Site (06/05/2023 8:14 AM CDT) Anatomical Region Laterality Modality Body N/A Other 06/05/2023 7:37 PM CDT Narrative 06/05/2023 7:39 PM CDT EXAM DESCRIPTION: DEXA AXIAL SKELETON BONE DENSITY 1 OR MORE SITES REASON FOR STUDY: 72 y/o ?? year old ??F ??with given history of: ?? post-menopausal osteoporosis prevention ?? Screening. ? 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 Maximum height: ??64 ??inches ? Weight: ??210 ??pounds Risk factors: ??Postmenopausal, prior hip/vertebral fracture, adult fracture, smoking history COMPARISON: 11/11/2017 FINDINGS: AP LUMBAR SPINE L1-L4: Total BMD is 0.918 g/cm2 T-score is -1.2 Dissimilar scan types or analysis methods precludes assessment for calculating a significant change. LEFT HIP: Total BMD is 0.770 g/cm2 T-score is -1.4 Femoral neck BMD is 0.576 g/cm2 T-score is -2.5 ?? FRAX: FRAX not reported due to T-scores of hip, femoral neck and/or spine being at or below -2.5 (Osteoporosis). IMPRESSION: Osteoporosis. REFERENCE: Bone mineral density: ? Normal (T-score above or = -1.0) ? Low bone mass ??(T-score between -1.0 and -2.5) replaces the previously used term osteopenia ? Osteoporosis (T-score = or below -2.5) Medical evaluation for secondary causes of low bone mineral density may be appropriate. FRAX is a World Health Organization validated fracture risk assessment tool that calculates a person's 10 year probability of a major osteoporosis related fracture and hip fracture. ??According to the National Osteoporosis Foundation guidelines, postmenopausal women and men age 50 or older with low bone mass and a 10 year probability of a major osteoporosis related fracture = or greater than 20% or a 10 year probability of a hip fracture = or greater than 3% should be considered for treatment. For further information, including treatment recommendations, please refer to the 2019 ISCD Official Positions (http://www.iscd.org) and the NOF's Clinician's Guide to Prevention and Treatment of Osteoporosis (http://www.nof.org/professionals/clinical-guidelines) THIS IS AN ELECTRONICALLY VERIFIED FINAL REPORT 06/05/2023 7:39 PM - Electronically signed by ??Malvin CHILDS: AMADEO D: ??06/05/2023 7:39 PM T: ??06/05/2023 7:39 PM Report ID: [id number] Reading Location: ??[id number] Procedure Note Malvin Garcia MD - 06/05/2023 EXAM DESCRIPTION: DEXA AXIAL SKELETON BONE DENSITY 1 OR MORE SITES REASON FOR STUDY: 72 y/o year old F with given history of: post-menopausal osteoporosis prevention Screening. 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 LEFT HIP: Total BMD is 0.770 g/cm2 T-score is -1.4 Femoral neck BMD is 0.576 g/cm2 T-score is -2.5 FRAX: FRAX not reported due to T-scores of hip, femoral neck and/or spine beingat or below -2.5 (Osteoporosis). IMPRESSION: Osteoporosis. REFERENCE: Bone mineral density: Normal (T-score above or = -1.0) Low bone mass (T-score between -1.0 and -2.5) replaces thepreviously used term osteopenia Osteoporosis (T-score = or below -2.5) Medical evaluation for secondary causes of low bone mineral density may be appropriate. FRAX is a World Health Organization validated fracture risk assessmenttool that calculates a person's 10 year probability of a major osteoporosisrelated fracture and hip fracture. According to the National OsteoporosisFoundation guidelines, postmenopausal women and men age 50 or older with low bonemass and a 10 year probability of a major osteoporosis related fracture = or greater than 20% or a 10 year probability of a hip fracture = or greaterthan 3% should be considered for treatment. For further information, including treatment recommendations, please referto the 2019 ISCD Official Positions (http://www.iscd.org) and the NOF's Clinician's Guide to Prevention and Treatment of Osteoporosis (http://www.nof.org/professionals/clinical-guidelines) THIS IS AN ELECTRONICALLY VERIFIED FINAL REPORT 06/05/2023 7:39 PM - Electronically signed by Malvin Garcia M.D. MF: [email or web address] Report ID: [id number] Reading Location: [place] [address] [place] Arik Colbert MD IMG DXA PROCEDURES Final Result * Screening Mammogram Bilateral W Lucas (11/11/2017 1:[address] REPORTER) Anatomical Region Laterality Modality Breast Bilateral Mammography Impressions 11/11/2017 1:[address] REPORTER BIRADS Category 2: Benign finding(s). Digital technology was employed plus computer-aided detection software (R2) was utilized in interpretation of these images. This facility utilizes a reminder system to notify patients of yearly mammograms. Electronically signed by: Pollo Loya M.D. Narrative 11/11/2017 1:[address] REPORTER EXAMINATION: Digital screening mammogram with tomosynthesis. HISTORY: Breast cancer screening PRIOR: Last mammogram reported 20 years ago DENSITY: Scattered fibroglandular densities FINDINGS: A 5 mm nodular density with low-attenuation core in the left upper outer breast is consistent with a benign lymph node. ??Scattered benign calcification is are also seen. No dominant mass, architectural distortion, nipple retraction, skin thickening, or suspicious calcifications are seen. Procedure Note Pollo Loya MD / Provider, MD Jacobo - 11/11/2017 EXAMINATION: Digital screening mammogram with tomosynthesis. HISTORY: Breast cancer screening PRIOR: Last mammogram reported 20 years ago DENSITY: Scattered fibroglandular densities FINDINGS: A 5 mm nodular density with low-attenuation core in the left upper outer breast is consistent with a benign lymph node. Scattered benign calcification is are also seen. No dominant mass, architectural distortion, nipple retraction, skin thickening, or suspicious calcifications are seen. IMPRESSION: BIRADS Category 2: Benign finding(s). Digital technology was employed plus computer-aided detection software (R2) was utilized in interpretation of these images. This facility utilizes a reminder system to notify patients of yearly mammograms. Electronically signed by: Pollo Loya M.D. us Physician No IMG MAMMO PROCEDURES Final Resul t from Last 3 Months or Most Recently Relevant to Health Maintenance Insurance [employer] [facility] [place] [facility] Address: [place] [id number] [employer] [facility]IC[facility] Address: [place] [address] [employer] [employer] Advance Directives For more information, please contact: [phone] * Full Code (Latest Code Status on File) Date Activated Date Inactivated Comments 05/14/2024 7:37 AM 05/14/2024 1:53 PM * Full Code Date Activated Date Inactivated Comments 05/14/2024 7:37 AM 05/14/2024 7:37 AM * Full Code Date Activated Date Inactivated Comments 12/10/2023 7:41 AM 12/10/2023 1:51 PM * Full Code Date Activated Date Inactivated Comments 12/10/2023 7:41 AM 12/10/2023 7:41 AM * Full Code Date Activated Date Inactivated Comments 08/02/2023 6:54 PM 08/03/2023 6:17 PM Care Teams Master Printer Relationship Specialty Start Date End Date Arik Colbert MD PCP - General Family Practice 05/30/23 Deon Corcoran MD [address] [facility] [place] [address] Consulting Physician Pulmonary Disease 08/03/23
--- OUTSIDE RECORDS SUMMARY | 2024-11-05 23:01 | XMS_ITS | Clinical Summary ---
Author Organization [facility] Address [address] [place] [address] Care Team Providers Care Meat Apprentice Name Role Phone Arik Colbert MD Primary Care Provider [phone] Deon Corcoran MD Unavailable Allergies Active Allergy Reactions Criticality Noted Date [...] 3 (three) times a week Takes on mon/tues/wed Active vitamin B complex with vitamin C [...] neoplasm of colon 2022 COPD exacerbation 08/02/2023 Encounters Date Type Department Care Team Description 10/27/2024 12:07 PM HEEL SANDER - 10/27/2024 11:59 PM HEEL SANDER Hospital Encounter [facility] [address] [place] [address] Lumbar radiculopathy; Radiculopathy, cervical; Radiculopathy, thoracic region; Arthralgia of shoulder, unspecified laterality Discharge Disposition: Discharge to home or self care from Last 3 Months Surgical History Surgery Date Site/Laterality Comments KNEE ARTHROSCOPY Bilateral Arthroscopy knee TOTAL ABDOMINAL HYSTERECTOMY 10/14/1977 Hysterectomy, total BREAST CYST ASPIRATION 10/14/1994 Right COLONOSCOPY 12/10/2023 First Medical History Medical History Date Comments Hx Other Medical back pain Smoking Hypertension Hypothyroidism Kidney failure Diabetes mellitus (HCC) Cubital tunnel syndrome Trigger finger Carpal tunnel syndrome Malignant neoplasm of colon (HCC) 03/16/2024 Colon cancer (CMS/HCC) (HCC) Family History Medical History Relation Name Comments Hypertension Other 1 Family history of Hypertension; Arthritis Other 2 Family history of arthritis; Relation Name Status Comments Other 1 Other 2 Social History Tobacco Use Types Packs/Day Years [...] on file Legal Sex Female 3:20 AM HEEL SANDER Gender Identity Not on file Sexual Orientation Not on file Obstetrics History Para Term AB IAB SAB Ectopic Multiple Livin g Live Births 1 1 1 Date Outcome GA Total Labor Labor/2nd/3rd Weight Sex Type Anes PTL Nerissa A1 A5 Name Clin Term Last Filed Vital Signs Vital Sign Reading [...] 05/14/2024 7:46 AM CDT Plan of Treatment Health Maintenance Due Date Last Done Comments Depression Screening 1950 Hepatitis C Screening 1950 Hepatitis B Screening 1970 Well Visit 65+ 2017 Breast Cancer Screening-Mammogram 11/11/2018 018 Pneumococcal vaccine 65+ (2 of 2 - PPSV23 or PCV20) 05/06/2019 03/11/2019 Zoster Vaccine (3 of 3) 07/23/2019 05/28/2019, 03/11 DTaP/Tdap/Td Vaccine (2 - Td or Tdap) 10/14/2022 10/14/2012 Lung Cancer Screening 07/11/2023 07/11/2022, 021 Influenza Vaccine (#1) 2024 Fall Risk Assessment 12/10/2024 12/10/2023 Osteoporosis Screening-Bone Density Scan 06/05/2025 06/05/2023, 08/06/2022, 08/06/2022, Additional history exists Colon Cancer Screening-Colonoscopy 05/14/2034 05/14/2024, 12/10/2023 Colon Cancer Screening-CT Colonography Discontinued 05/14/2024, 12/10/2023 Colon Cancer Screening-DNA Stool Discontinued 05/14/20, 12/10/2023 Colon Cancer Screening-FIT Discontinued 05/14/2024, Colon Cancer Screening-Sigmoidoscopy Discontinued 05/14/2024, 12/10/2023 Procedures Procedure Name Priority Date/Time Associated Diagnosis Comments XR SHOULDER LEFT 2 OR MORE VIEWS Schedule Routine, Read Routine (OP Routine) 10/27/2024 12:39 PM HEEL SANDER Arthralgia of shoulder, unspecified laterality XR SHOULDER RIGHT 2 OR MORE VIEWS Schedule Routine, Read Routine (OP Routine) 10/27/2024 12:39 PM HEEL SANDER Arthralgia of shoulder, unspecified laterality COLONOSCOPY 05/14/2024 7:48 AM CDT DEXA AXIAL SKELETON BONE DENSITY 1 OR MORE SITES Schedule Routine, Read Routine (OP Routine) 06/05/2023 8:14 AM CDT Asymptomatic menopausal state SCREENING MAMMOGRAM BILATERAL W LUCAS Schedule Routine, Read Routine (OP Routine) 11/11/2017 1:54 PM HEEL SANDER Screening breast examination from Last 3 Months or Most Recently Relevant to Health Maintenance Results * XR Shoulder Right 2 or More Views (10/27/2024 12:39 PM HEEL SANDER) Anatomical Region Laterality Modality Upper Extremities, Shoulder Right Comp uted Radiography 10/27/2024 9:04 PM HEEL SANDER Narrative 10/27/2024 9:07 PM HEEL SANDER EXAM DESCRIPTION: XR SHOULDER RIGHT 2 OR [...] 9:07 PM - Electronically signed by ??Malvin CHILDS: AMADEO D: ??10/27/2024 9:07 PM T: ??10/27/2024 9:07 PM Report ID: [id number] Reading Location: ??[id number] Procedure Note Malvin Garcia MD - 10/27/2024 [...] Malvin Garcia M.D. MF: AMADEO Report ID: [id number] Reading Location: [id number] Adarsh Velarde MD IMG XR PROCEDURES Fi nal Result * XR Shoulder Left 2 or More Views (10/27/2024 12:39 PM HEEL SANDER) Anatomical Region Laterality Modality Upper Extremities, Shoulder Left Comp uted Radiography 10/27/2024 9:04 PM HEEL SANDER Narrative 10/27/2024 9:07 PM HEEL SANDER EXAM DESCRIPTION: XR SHOULDER RIGHT 2 OR [...] PM T: ??10/27/2024 9:07 PM Report ID: [id number] Reading Location: ??[id number] Procedure Note Malvin Garcia MD - 10/27/2024 [...] Malvin Garcia M.D. MF: AMADEO Report ID: [id number] Reading Location: [place] [address] Adarsh Velarde MD IMG XR PROCEDURES Fi nal Result * Colonoscopy (05/14/2024 7:48 AM CDT) Anatomical Region Laterality Modality Other Narrative Procedure Note Mariana Mon MD - 05/14/2024 7:48 AM CDT [facility] Patient Name: Keiry Brar Procedure Date: 05/14/2024 7:48 AM Date of : 1950 Admit Type: Outpatient Age: 73 Gender: Female Attending MD: Mariana Mon M.D. Room: [facility] 1 Note Status: Finalized [...] under direct vision. The Pediatric Colonoscope PCF-H190L [id number] was introducedthrough the anus and advanced to [...] 7:48 AM Procedure Code(s): --- Professional --- 62173, Colonoscopy, flexible; with removal of tumor(s), polyp(s), or other lesion(s) by snare technique Diagnosis Code(s): --- Professional --- K64.8, Other hemorrhoids D12.3, Benign neoplasm of transverse colon (hepatic flexure orsplenic flexure) Z09, Encounter for follow-up examination after completed treatmentfor conditions other than malignant neoplasm Z86.010, Personal history of colonic polyps K57.30, Diverticulosis of large intestine without perforation orabscess without bleeding CPT copyright 2020 [employer]. All rights reserved. The codes documented in this report are preliminary and upon online producer reviewmay be revised to meet current compliance requirements. Recognized by the [employer] for promoting quality in endoscopy us Mariana Mon MD ENDOSCOPY PROCEDURES Final Result [...] ?? post-menopausal osteoporosis prevention ?? Screening. ? Drawing Checker/Model: [employer] SL (S/N 12421) CLINICAL INFORMATION: Current height: ??61 ??inches ? [...] 7:39 PM - Electronically signed by ??Malvin Garcia M.D. MF: AMADEO D: ??06/05/2023 7:39 PM T: ??06/05/2023 7:39 PM Report ID: [id number] Reading Location: ??[id number] Procedure Note Malvin Garcia MD - 06/05/2023 EXAM DESCRIPTION: DEXA AXIAL SKELETON BONE DENSITY 1 OR MORE SITES REASON FOR STUDY: 72 y/o year old F with given history of: post-menopausal osteoporosis prevention Screening. Drawing Checker/Model: fitaborate SL (S/N 38494) CLINICAL INFORMATION: Current height: 61 inches Maximum [...] Malvin Garcia M.D. MF: AMADEO Report ID: [id number] Reading Location: [place] [address] [place] Arik Colbert MD IMG DXA PROCEDURES Final Result * Screening Mammogram Bilateral W Lucas (11/11/2017 1:54 PM HEEL SANDER) Anatomical Region Laterality Modality Breast Bilateral Mammography Impressions 11/11/2017 1:57 PM HEEL SANDER BIRADS Category 2: Benign finding(s). Digital technology was employed plus computer-aided detection software (R2) was utilized in interpretation of these images. This facility utilizes a reminder system to notify patients of yearly mammograms. Electronically signed by: Pollo Loya M.D. Narrative 11/11/2017 1:57 PM HEEL SANDER EXAMINATION: Digital screening mammogram with tomosynthesis. HISTORY: [...] Relevant to Health Maintenance Insurance MEDICARE SOLUTIONS MEDICARE SOLUTIONS Member Subscriber Plan / Payer (Ef fective 2021-Present) Name:Keiry Brar Relation to Subscriber:Self Name:Keiry Brar Payer ID:[id number] (NAIC) Type:[facility] Address: [place] [id number] [employer] MEDICARE GOLD Advance Directives For more information, please contact: [phone] * Full Code (Latest Code Status on [...] 6:54 PM 08/03/2023 6:17 PM Care Teams Meat Apprentice Relationship Specialty Start Date End Date Arik Colbert MD PCP - General Family Practice 05/30/23 Deon Corcoran MD [address] [place] [address] Consulting Physician Pulmonary Disease 08/03/23
--- OUTSIDE RECORDS SUMMARY | 2024-11-05 23:01 | XMS_ITS | Continuity of Care Document ---
Author Organization [facility] Address [address] [place] [address] Phone Care Team Providers Care Funeral Prearrangement Counselor Name Role Phone Mao Carrera OD Unavailable Unavailable Allergies, Adverse Reactions, Alerts Substance Reaction Status Criticality Sulfa (Sulfonamide Antibiotics) Active No Information Medications Medication Instructions Dosage Effective Dates (start - stop) Status Comments oxybutynin chloride ER 10 mg tablet,extended release 24 hr take 1 tablet by oral route every day 10 MG - Active tramadol 50 mg tablet take 1 tablet by o ral route every 6 hours as needed 50 MG - Active buspirone 15 mg tablet take 1 tablet by oral route 2 times every day 15 MG - Active losartan 100 mg tablet take 1 tablet by oral route every day 100 MG - Active Procedures Procedure Date No Charge Refraction Eye Exam, New Patient Advance Directives Directive Yes / No Effective Date File Name No Information Encounters Encounter Description Practice Location Reason(s) For Visit Diagnoses Date Provider Providers Copied on Encounter [facility], [address], [place], [place], [id number], [place] tel:[phone] [place] Professional Complete Exam (chief complaint) Nuclear sclerotic cataract of both eyesVitreous degeneration and detachment of both eyesOcular migraine 9 Debi Cavanaugh. [facility], [address] [place] [address], [place], [address], [place]. tel:[phone] Referring Provider: Mao Story, [facility] [address] [facility], [place], [address]. tel:[phone] [facility], [address], [place], [place], [id number], [place] tel:[phone] [address] [place] Professional No Information 9 Debi Cavanaugh. [address] [facility], [address], [place], [address], [place]. [phone] Family History Family Member Type Diagnosis Age At Onset Problem (finding) Family history of Diabe caesar mellitus Payers Payer name Insurance type Covered democrat ID Authoralondra mckee(s) [employer] [place] [id number] Social History Type Description Quantity Date Captured Comments Alcohol Use Details No Caffeine Use Details Tobacco Use Status Occasional cigarette smoker Smoking Status Current some day smoker Smoking Tobacco Use Details Cigarette: No Details Available Cigarette: No Details Available Sex Female Chief Complaint And Reason For Visit From encounter dated '01/08/2019 10:30'. Complete Exam (chief complaint). Description: The 68 year old female presents for a complete exam ou. Patient wears OTC reading glasses. Patient hasn't had an eye exam in 3 years. Patient states eyes are doing good. Reason For Referral Reason For Referral No Information Plan Of Treatment Date Type Action Status Goal Tobacco cessation counseling completed History Of Present Illness Encounter Date Complaint History Of Prese nt Illness Complete Exam The 68 year old female presents for a complete exam ou. Patient wears OTC reading glasses. Patient hasn't had an eye exam in 3 years. Patient states eyes are doing good. Functional Status Date Functional Assessmen t No Information Instructions Date Instruction Additional Infor mation Impression/Plan Assessments Type Assessment Date assessment Nuclear sclerotic cataract of judith th eyes assessment Vitreous degeneration and detach ment of both eyes assessment Ocular migraine Patient Care Teams Name Effective Dates (start - stop) Status Members No Information
--- OUTSIDE RECORDS SUMMARY | 2024-11-05 23:01 | XMS_ITS | Patient Health Record ---
Author Organization [facility] Address [address] [place], [place] [address] Care Team Providers Care Athletic Director Name Role Phone IgnacioGabriel harley Primary Care Provider Marlene Valdes DPM Unavailable [phone] Reason For Referral No Information Medications Medication SIG (Take, Route, Fr equency, Duration) Notes Start Date End Date Status Tylenol Active Vitamin D Active Multivitamin Active Torsemide Active Calcitriol Active Atorvastatin Calcium Active Carvedilol Active Gabapentin Active tiZANidine HCl Activ e Cymbalta Active traMADol HCl Active Social History Tobacco Use: Social History Observation Description Date Details (start date - stop date) Never Smoker NA - NA Smoking Status Question Answer Notes Are you a nonsmoker Problems Problem Type SNOMED Code ICD Code Onset Dates Problem Status W/U Status Risk Notes Problem Hereditary disorder of nervous system (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
--- OUTSIDE RECORDS SUMMARY | 2024-11-05 23:01 | XMS_ITS | Encounter Summary ---
Author Organization [facility] Address [address] [place] [address] Phone Care Team Providers Care Benzene Operator Name Role Phone Duke Salazarin Sheila ZHONG Primary Care Provider [phone] Rui Melo MD Primary Care Provider [phone] Arik Colbert MD Primary Care Provider [phone] Deon Corcoran MD Unavailable Encounter Details Date Type Department Care Team (Late st Contact Info) Description 12/31/2017 Orders Only [facility] ProviderJacobo MD [address] [place] [address] Social History Tobacco Use Types Packs/Day Years Used Date Smoking Tobacco: Every Day Alcohol Use Standard Drinks/Week Comments Yes 0 (1 standard drink = 0.6 oz pur e alcohol) Comments No Sex and Gender Information Value Date Recorded Sex Assigned at Not on file Legal Sex Female 3:20 AM MOVER Gender Identity Not on file Sexual Orientation Not on file documented as of this encounter Plan of Treatment Not on file documented as of this encounter Procedures Procedure Name Priority Date/Time Associated Diagnosis Comments DISCHARGE LABORATORY CUMULATIVE REPORT 12/31/2017 12:00 AM CDT documented in this encounter Results * DISCHARGE LABORATORY CUMULATIVE REPORT (12/31/2017 12:00 AM CDT) Narrative 12/31/2017 12:00 AM CDT Ordered by an unspecified provider. Historical Provider LAB BLOOD ORDERABLES Paige l Result documented in this encounter Visit Diagnoses Not on filedocumented in this encounter Additional Health Concerns Infection Onset Date Last Indicated Resolved Time COVID: Suspected 06/18/2023 06/18/2023 06/18/2023 11:13 AM CDT documented as of this encounter Care Teams Benzene Operator Relationship Specialty Start Date End Date Lars Salazar DO [address] [facility] [address] [place] [address] PCP - General 03/24/15 04/10/21 Rui Melo MD [address] [place], [place] [address] PCP - General 04/11/21 05/29/23 Arik Colbert MD [address] [place], [place] [address] PCP - General Family Practice 05/30/23 Deon Corcoran MD [address] [facility] [address] [place] [address] Consulting Physician Pulmonary Disease 08/03/23 documented as of this encounter
--- OUTSIDE RECORDS SUMMARY | 2024-11-05 23:01 | XMS_ITS ---
Author Organization Corporate Office Address [address] [place] [address] [address] [place] [address] Care Team Providers Care Bead Cutter Name Role Phone Felicia Ann CNP Primary Care Provider [phone] Felicia Novak Unavailable Unavailable Johann Langston MD [phone] Social History Sex Assigned At : Social History Observation Description Sex Assigned At Female Encounters Encounter Location Date Provider Diagnosis [address] [place] [address] for [facility] Medicine [address] [place], [place] [id number] 06/04/2024 Johann Langston Plan Of Treatment No Information Progress Notes * Keiry BRAR NDOB:[birth year] (73 yo F)Acc No.[id number]:06/04/2024 Patient:?Keiry BRAR :1950???Age:73 Y???Sex:Female Address:[address], [place], [address] * true * Date:? Generated for Printi cindy/Billie/eTransmitting on:?11/06/2024 12:01 AM EST
--- OUTSIDE RECORDS SUMMARY | 2024-11-05 23:02 | XMS_ITS ---
Author Organization Corporate Office Address [address] [place] [address] [address] [place] [address] Care Team Providers Care Distiller Name Role Phone Felicia Ann CNP Primary Care Provider [phone] Felicia Novak Unavailable Unavailable REASON FOR VISIT annual Social History Sex Assigned At : Social History Observation Description Sex Assigned At Female Encounters Encounter Location Date Provider Diagnosis [address] [address] 08/05/2023 Felicia Ann Plan Of Treatment No Information Progress Notes * Keiry BRAR NDOB:[birth year] (74 yo F)Acc No.[id number]:08/05/2023 Patient:?Keiry BRAR Provider:?Felicia Ann CNP Case Label:?Date Of Injur y: :1950???Age:72 Y???Sex:Female D ate:08/05/2023 [address] Subjective: * Chief Complaints: * ???1. annual. * Medical History:?? Objective: * Vitals:? Assessment: Plan: * Treatment: * Care Plan Details* * Electronic signature of Sean Ann CNP, CNP on 11/06/2024 at 12:01 AM EST Sign off status: Pending * Provider:?Felicia Ann CNP Date:?08/05 Generated for [place] white/Billie/eTransmitting on:?11/06/2024 12:01 AM EST
--- OUTSIDE RECORDS SUMMARY | 2024-11-05 23:02 | XMS_ITS | Patient Health Record ---
Author Organization Corporate Office Address [address] [place] [address] [address] [place] [address] Care Team Providers Care Loading Machine Operator Name Role Phone Felicia Ann CNP Primary Care Provider Felicia Novak Unavailable Unavailable Ivis LEROY, Johann Unavailable [phone] Allergies Allergen (clinical drug ingredient) Drug/Non Drug Allergy documented on EMR Reaction Allergy Type Onset Date Status CT Scan dye (uncoded) hives Allergy Active Bee Sting swelling, rash Allergy Activ e Reason For Referral No Information Medications Medication SIG (Take, Route, Frequency, Duration) Notes Start Date End Date Status Vitamin D 50 MCG (1999 UT) 1 capsule Orally every other day Active tiZANidine HCl 4 MG 1 tablet as needed Orally once a day for 30 days Active Aspirin 81 MG 1 tablet Orally Once a day for 90 days 04/04/2022 Active Teriparatide 620 MCG/2.48ML 0.08 mL Subcutaneous Once a day Active HYDROcodone-Acetamin ophen 5-325 MG 1 tablet as needed Orally once a day for 30 days Dispense 04/05/23 Patient will be taking this for BTP, continuing Tramadol 04/05/2023 Active Omeprazole 20 MG 1 capsule 30 minutes before morning meal Orally Once a day Active Multivitamin - 1 tablet Orally Once a day Active Vitamin B12 1000 MCG 1 tablet Orally Onc e a day Active Tylenol 325 MG 1 capsule as needed Orally every 6 hrs Active traMADol HCl 50 MG 1 tablet as needed Orally twice a day for 30 days Dispense 04/12/23 04/05/2023 Active Atorvastatin Calcium 40 MG 1 tablet Orally once at bedtime Active Calcium 600 MG 1 tablet with meals Orally Twice a day Active Calcitriol 0.25 MCG 1 capsule Orally Twice a day 02/07/2021 Active Gabapentin 300 MG 2 capsule Orally once at bedtime for 90 days Active Cymbalta 60 MG 1 capsule Orally twice a day for 30 day(s) takes 90 mg Active Cymbalta 30 MG 1 capsule Orally Once a day takes 90 mg Active Carvedilol 25 MG 1 tablet with food Orally Twice a day 08/29/2021 Active Social History Tobacco Use: Social History Observation Description Date Details (start date - stop date) Former Smoker 01/12/1971 - 09/13/2020 Sex Assigned At : Social History Observation Description Sex Assigned At Female Alcohol Question Answer Notes Did you have a drink containing alcohol in the p ast year? No Points 0 Interpretation Negative Smoking Question Answer Notes Are you a: Former Smoker When did you start smoking? 01/12/1971 When did you stop smoking? 09/13/2020 How long has it been since you last smoked? 1-5 years Problems Problem Type SNOMED Code ICD Code Onset Dates Problem Status W/U Status Risk Notes Problem 450301333 Mixed hyperlipid emia (E78.2) Active confirmed Problem 773829012 Cervical spondyl osis without myelopathy (M47.812) Active confirmed Problem Hypertension (99146317) HTN (hypertension) (I10) Active confirmed Problem Osteoarthritis of knee (575053571) Knee osteoarthritis (M17.9) Active confirmed Problem Tobacco abuse (22546160) Tobacco abuse (Z72.0) Active confirmed Problem 67642136 Lumbosacral spondylosis without myelopathy (M47.817) Active confirmed Problem Osteoarthritis (390931622) Osteoarthritis (M19.90) Active confirmed Problem Pathological fracture of vertebra (947468943) Compression fracture of T12 vertebra (M48.54XA) Active confirmed Problem 17013531 Sacroiliitis, no t elsewhere classified (M46.1) Active confirmed Problem 882826860824600 Hypertensive chr onic kidney disease with stage 1 through stage 4 chronic kidney disease, or unspecified chronic kidney disease (I12.9) Active confirmed Problem Panlobular emphysema (8223401) Panlobular emphysema (J43.1) 021 Active confirmed Problem Chronic kidney disease stage 4 (942879532) Chronic kidney disease, stage 4 (severe) (N18.4) Active confirmed Problem 176039303 Morbid obesity d ue to excess calories (E66.01) Active confirmed Problem 633440225 Gastroesophageal reflux disease without esophagitis (K21.9) Active confirmed Problem Pulmonary emphysema (50633712) Pulmonary emphysema, unspecified emphysema type (J43.9) 021 Active confirmed Problem 327926421494104 Primary osteoarthritis of right knee (M17.11) Active confirmed Problem 31497706 Secondary hyperparathyroidism (N25.81) Active confirmed Problem 934990868 Itch (L29.9) Active confirmed Problem 747752444 Cigarette nicoti ne dependence in remission (F17.211) Active confirmed Problem 215043535 Stage 3 chronic kidney disease (N18.3) Active confirmed Problem 52093898 Osteoporosis, unspecified osteoporosis type, unspecified pathological fracture presence (M81.0) Active confirmed Problem 805654298 Other type of osteoarthritis, unspecified site (M19.90) Active confirmed Problem Closed fracture of thoracic vertebra without spinal cord injury (53510262) Compression fracture of T6 vertebra (S22.050A) Active confirmed Problem 967127221 Closed wedge compression fracture of T12 vertebra, initial encounter (S22.080A) Active confirmed Problem Late effect of fracture of spine AND/OR trunk without spinal cord lesion (5277279) Compression fracture of T6 vertebra, sequela (S22.050S) Active confirmed Problem Chronic kidney disease stage 3B (484986036) CKD stage G3b/A1, GFR 30-44 and albumin creatinine ratio <30 mg/g (N18.32) Active confirmed Encounters Encounter Location Date Provider Diagnosis [facility] [address] [place], [place] [id number] 06/03/2024 Johann Langston [facility] [address] [place], [place] [id number] 06/04/2024 Johann Langston Plan Of Treatment Pending Test Test Name Order Date X ray : Knees, bilateral, A-P standing 0 04/25/2020 MRI Spine Thoracic w/o Contrast 07/19/20 22 EMG/NCT Legs 03/15/2022 Xray R Knee 03/06/2022 Renal Function 04/25/2020 Urinalysis with Micro 05/17/2022 CBC with Diff 05/17/2022 PTH Intact 05/17/2022 Renal Function Panel 05/17/2022 SP XR Spine Cervical complete with Flexi on and Extension 04/25/2020 XR Hip Right 2 plus views 10/31/2022 Lumbar medial branch facet block 022 Lumbar medial branch facet block 021 PM_Injection joint sacroiliac, unilatera l 12/20/2022 PM_Injection major, unilateral 1 PM_Injection major, unilateral 2 PM_Injection major joint, unilateral Injection nerve facet- lumbar bilateral, Diagnostic 08/29/2021 Injection nerve, RFA lumbar facet, bilat eral 06/19/2022 Vitamin D 25-OH Total (D3) 05/17/2022 Injection nerve other peripheral GENICUL AR nerve block, unilateral 12/20/2022 Injection nerve other peripheral GENICUL AR nerve block, unilateral 01/31/2023 Protein/Creatinine Ratio Urine Random Future Test Test Name Order Date PM_Injection major, unilateral 1 CBC with Diff 12/27/2021 PTH Intact 12/27/2021 Renal Function Panel 12/27/2021 urinalysis 12/27/2021 Vit D 25-OH, Total 12/27/2021 Urine Prot/Creat Random 12/27/2021 CBC with Diff 01/30/2022 PTH Intact 01/30/2022 urinalysis 01/30/2022 Vit D 25-OH, Total 01/30/2022 Protein/Creatinine Ratio Urine Random Insurance Providers Payer Name Payer Address Payer Phone Subscriber Number Group Number Insured Name Patient Relationship to Insured Coverage Start Date Coverage End Date MMO ADVANTAGE PLAN [address] [place] [address] [id number] Keiry Brar Self - patient is the insured 3 Medical (General) History Medical History History ICD Code high blood pressure Arthritis in the neck back injection Surgical History Surgery Date(Month/Year) tonsillectomy 1955 appendectomy 1964 partial hysterectomy 1977 knee surgery-both knees Hospitalization History Reason Date(Month/Year) ER/SOB 03/04/23 back & chest pain 07/03/2022 Urgent Care (increased knee pain) [facility] 08/2021
== END 2024-11-04 10:02 | disposition home or self-care (01) ==
LOC: ANHIMG 10:03
PROVIDERS: Visit Provider Internal Medicine
DX: Z78.0 Asymptomatic menopausal state (principal); M85.88 Other specified disorders of bone density and structure, other site; M85.852 Other specified disorders of bone density and structure, left thigh; M85.851 Other specified disorders of bone density and structure, right thigh; M81.0 Age-related osteoporosis without current pathological fracture
CPT/HCPCS: 77080

== ENCOUNTER 2025-01-18 08:55 | Outpatient (CLI) | payer MEDICARE, SELFPAY ==
--- OUTSIDE RECORDS SUMMARY | 2025-01-18 09:36 | XMS_ITS | Encounter Summary ---
Author Organization [facility] Care Team Providers Care Ending Machine Operator Name Role Phone Mingo Guadarrama APRN, CNP Primary Care Provider Encounter Details Date Type Department Care Team (Latest Contact Info) Description 01/18/2025 Travel Social History Tobacco Use Types Packs/Day Years Used Date Smoking Tobacco: Every Day Cigarettes Smokeless Tobacco: Never Alcohol Use Standard Drinks/Week Comments No 0 (1 standard drink = 0.6 oz pur e alcohol) Comments No Sex and Gender Information Value Date Recorded Sex Assigned at Female 05/07/2024 4:21 AM CDT Legal Sex Female 12:16 AM CDT Gender Identity Female 05/07/2024 4:21 AM CDT Sexual Orientation Straight 05/07/2024 4: 21 AM CDT documented as of this encounter Plan of Treatment Upcoming Encounters Date Type Department Care Team (Late st Contact Info) Description 01/19/2025 7:00 AM CDT Appointment [facility] MRI [address] [place] [address] Sean Hull MD [address] [place] [address] Discharge Disposition: Discharged to home or Selfcare documented as of this encounter Visit Diagnoses Not on filedocumented in this encounter Care Teams Ending Machine Operator Relationship Specialty Start Date End Date Mingo Guadarrama APRN, CNP [address] [place] [address] PCP - General Certified Nurse Practitioner 10/05/16 documented as of this encounter
--- OUTSIDE RECORDS SUMMARY | 2025-01-18 09:36 | XMS_ITS ---
Author Organization Corporate Office Address [address] [place] [address] [address] [place] [address] Care Team Providers Care Relief Worker Name Role Phone Felicia Ann CNP Primary Care Provider Felicia Novak Unavailable Unavailable Johann Langston MD [phone] REASON FOR VISIT requesting call back Social History Sex Assigned At : Social History Observation Description Sex Assigned At Female Encounters Encounter Location Date Provider Diagnosis 06 [place] [facility] Medicine [address] [place], [place] [phone] 06/03/2024 Johann Langston Plan Of Treatment No Information Progress Notes * Keiry BRAR NDOB:[birth year] (73 yo F)Acc No.[id number]:06/03/2024 Patient: Jena DEANNAJENNA Keiry Montes :1950 A ge:73 Y S ex:Female Address:[address] [place] [address], [address], [place], [address] * true * Date: Generated for Printi ng/Faxing/eTransmitting on: 0 01/18/2025 10:35 AM EDT
--- OUTSIDE RECORDS SUMMARY | 2025-01-18 09:36 | XMS_ITS ---
Author Organization Corporate Office Address [address] [place] [address] [address] [place] [address] Care Team Providers Care Distribution Superintendent Name Role Phone Felicia Ann CNP Primary Care Provider Felicia Novak Unavailable Unavailable Johann Langston MD [phone] Social History Sex Assigned At : Social History Observation Description Sex Assigned At Female Encounters Encounter Location Date Provider Diagnosis [address] [place] [address] for [facility] Medicine [address] [place], [place] [id number] 06/04/2024 Johann Langston Plan Of Treatment No Information Progress Notes * Keiry BRAR NDOB:[birth year] (73 yo F)Acc No.[id number]:06/04/2024 Patient: Jena Keiry ZAMORA :1950 A ge:73 Y S ex:Female Address:[address], [address], [place], [address] * true * Date: Generated for Printi ng/Faxing/eTransmitting on: 0 01/18/2025 10:35 AM EDT
--- OUTSIDE RECORDS SUMMARY | 2025-01-18 09:36 | XMS_ITS ---
Author Organization Corporate Office Address [address] [place] [address] [address] [facility] [place] [address] Care Team Providers Care Education Manager Name Role Phone Felicia Ann CNP Primary Care Provider [phone] Felicia Novak Unavailable Unavailable REASON FOR VISIT annual Social History Sex Assigned At : Social History Observation Description Sex Assigned At Female Encounters Encounter Location Date Provider Diagnosis [address] [address] 08/05/2023 Felicia Ann Plan Of Treatment No Information Progress Notes * Keiry BRAR NDOB:[birth year] (74 yo F)Acc No.[id number]:08/05/2023 Patient: Jena ZAMORA Keiry Montes Provider: Davidson Ann CNP Case Label: Date Of Injury: :1950 A ge:72 Y S ex:Female Date:08/05/2023 Address:[address] [place] [address], [id number] Subjective: * Chief Complaints: * 1 . annual. * Medical History: Objective: * Vitals: Assessment: Plan: * Treatment: * Care Plan Details* * Electronic signature of Sean Ann CNP, CNP on 01/18/2025 at 10:36 AM EDT Sign off status: Pending * Provider: Davidson Ann CNP Date: Generated for [place] white/Billie/eTransmitting on: 0 01/18/2025 10:36 AM EDT
--- OUTSIDE RECORDS SUMMARY | 2025-01-18 09:36 | XMS_ITS | Clinical Summary ---
Author Organization [facility] Address [address] [place] [address] Care Team Providers Care Cigarette Carton Sealer Name Role Phone Deon Corcoran MD Unavailable Carito Agudelo MD Primary Care Provider Allergies Active Allergy Reactions [...] Encounters Date Type Department Care Team Description 12/18/2024 1:05 PM THREAD SPOOLER - 12/18/2024 11:59 PM THREAD SPOOLER Hospital Encounter [facility] [address] [place] [address] Rib pain Discharge Disposition: Discharge to home or self care 10/27/2024 12:07 PM THREAD SPOOLER - 10/27/2024 11:59 PM THREAD SPOOLER Hospital Encounter [facility] [address] [place] [address] Lumbar radiculopathy; Radiculopathy, cervical; Radiculopathy, thoracic region; [...] neoplasm of colon (HCC) 03/16/2024 Colon cancer (HCC) Family History Medical History Relation Name [...] often do you have a drink containing alc ohol? Never 03/16/2024 Average Number of Drinks Not on file 024 Frequency of Binge Drinking Not on file 12/2023 Personal Safety Answer Date Recorded Have you ever been in or are you currently in a harmful physical or emotional relationship or is someone making you feel afraid or unsafe? Denies 05/14/2024 Comments No Sex and Gender Information Value Date Recorded Sex Assigned at Not on file Legal Sex Female 3:20 AM THREAD SPOOLER Gender Identity Not on file Sexual Orientation [...] 63 05/14/2024 9:26 AM CDT Temperature 36.8 C (98.2 F) 05/14/2024 9:26 AM CDT Respiratory Rate 16 05/14/2024 9:26 AM CDT [...] Pneumococcal vaccine 65+ (2 of 2 - PPSV23) 05/06/2019 03/11/2019 Zoster Vaccine (3 of 3) 07/23/2019 05/28/2019, 03/11 DTaP/Tdap/Td Vaccine (2 - Td or Tdap) 10/14/2022 10/14/2012 Lung Cancer Screening 07/11/2023 07/11/2022, 021 Fall Risk Assessment 12/10/2024 12/10/2023 Osteoporosis Screening-Bone Density Scan 06/05/2025 06/05/2023, 08/06/2022, 08/06/2022, Additional history exists Influenza Vaccine (Season Ended) 2025 Colon Cancer Screening-Colonoscopy 05/14/2034 05/14/2024, 12/10/2023 Colon Cancer Screening-CT Colonography Discontinued 05/14/2024, 12/10/2023 Colon Cancer Screening-DNA Stool Discontinued 05/14/20, 12/10/2023 Colon Cancer Screening-FIT Discontinued 05/14/2024, Colon Cancer Screening-Sigmoidoscopy Discontinued 05/14/2024, 12/10/2023 Procedures Procedure Name Priority Date/Time Associated Diagnosis Comments XR CHEST PA LATERAL 2 VIEWS Schedule Routine, Read Routine (OP Routine) 12/18/2024 1:15 PM THREAD SPOOLER Rib pain XR SHOULDER LEFT 2 OR MORE VIEWS Schedule Routine, Read Routine (OP Routine) 10/27/2024 12:39 PM THREAD SPOOLER Arthralgia of shoulder, unspecified laterality XR SHOULDER RIGHT 2 OR MORE VIEWS Schedule Routine, Read Routine (OP Routine) 10/27/2024 12:39 PM THREAD SPOOLER Arthralgia of shoulder, unspecified laterality COLONOSCOPY 05/14/2024 7:48 AM CDT DEXA AXIAL SKELETON BONE DENSITY 1 OR MORE SITES Schedule Routine, Read Routine (OP Routine) 06/05/2023 8:14 AM CDT Asymptomatic menopausal state SCREENING MAMMOGRAM BILATERAL W SHARAD Schedule Routine, Read Routine (OP Routine) 11/11/2017 1:54 PM THREAD SPOOLER Screening breast examination from Last 3 Months or Most Recently Relevant to Health Maintenance Results * XR Chest PA Lateral 2 Views (12/18/2024 1:15 PM THREAD SPOOLER) Anatomical Region Laterality Modality Body, Chest N/A Computed Radiogr aphy 12/20/2024 3:43 PM CDT Narrative 12/20/2024 3:45 PM CDT EXAM DESCRIPTION: XR CHEST PA LATERAL 2 VIEWS REASON FOR STUDY: rib pain Pain to left side of chest. Pt got up off the floor and heard a pop. 2 days ago. It hurts to breath, cough, move. TECHNIQUE: There are 2 radiographic view(s) of the chest. COMPARISON: Prior exam 08/02/2023 and 08/02/2023. CT 03/18/2024. FINDINGS: LUNGS: Hyperinflation of the lungs indicative of underlying emphysematous change as was previously seen. Pulmonary vascularity appears normal. No infiltrate or effusion. HEART/MEDIASTINUM: Tortuosity of the aorta. Otherwise, normal cardiomediastinal silhouette. LINES/TUBES: None. BONES: Prominent wedging/compression fracture midthoracic spine. This is unchanged from CT of 03/18/2024. Otherwise, wlms-av-ehtekfin spondylosis. IMPRESSION: Emphysematous change with no acute infiltrate. Prominent wedging/compression fracture midthoracic spine is unchanged from CT of 03/18/2024. THIS IS AN ELECTRONICALLY VERIFIED FINAL REPORT 12/20/2024 3:45 PM - Electronically signed by Malvin Barlow M.D. MJ: CASSIUS Report ID: [id number] Reading Location: [id number] Procedure Note Malvin Barlow MD - 12/20/2024 EXAM DESCRIPTION: XR CHEST PA LATERAL 2 VIEWS REASON FOR STUDY: rib pain Pain to left side of chest. Pt got up off the floor and heard a pop. 2days ago. It hurts to breath, cough, move. TECHNIQUE: There are 2 radiographic view(s) of the chest. COMPARISON: Prior exam 08/02/2023 and 08/02/2023. CT 03/18/2024. FINDINGS: LUNGS: Hyperinflation of the lungs indicative of underlying emphysematous change as was previously seen. Pulmonary vascularity appears normal. No infiltrate or effusion. HEART/MEDIASTINUM: Tortuosity of the aorta. Otherwise, normal cardiomediastinal silhouette. LINES/TUBES: None. BONES: Prominent wedging/compression fracture midthoracic spine. This is unchanged from CT of 03/18/2024. Otherwise, erng-wb-jyftcgyk spondylosis. IMPRESSION: Emphysematous change with no acute infiltrate. Prominent wedging/compression fracture midthoracic spine is unchangedfrom CT of 03/18/2024. THIS IS AN ELECTRONICALLY VERIFIED FINAL REPORT 12/20/2024 3:45 PM - Electronically signed by Malvin Barlow M.D. MJ: CASSIUS Report ID: [id number] Reading Location: [place] [address] Tremayne Lares MD IMG XR PROCEDURES Final Result * XR Shoulder Right 2 or More Views (10/27/2024 12:39 PM THREAD SPOOLER) Anatomical Region Laterality Modality Upper Extremities, Shoulder Right Comp uted Radiography 10/27/2024 9:04 PM THREAD SPOOLER Narrative 10/27/2024 9:07 PM THREAD SPOOLER EXAM DESCRIPTION: XR SHOULDER RIGHT 2 OR [...] The left glenohumeral joint is normal. There is mild left acromioclavicular joint osteoarthritis. IMPRESSION: Mild right glenohumeral joint osteoarthritis. Mild left acromioclavicular joint osteoarthritis. THIS IS AN ELECTRONICALLY VERIFIED FINAL REPORT 10/27/2024 9:07 PM - Electronically signed by Malvin Garcia M.D. MF: AMADEO Report ID: [id number] Reading Location: [id number] Procedure Note Malvin Garcia MD - 10/27/2024 [...] Malvin Garcia M.D. MF: AMADEO Report ID: [id number] Reading Location: [id number] Adarsh Velarde MD IMG XR PROCEDURES Fi nal Result * XR Shoulder Left 2 or More Views (10/27/2024 12:39 PM THREAD SPOOLER) Anatomical Region Laterality Modality Upper Extremities, Shoulder Left Comp uted Radiography 10/27/2024 9:04 PM THREAD SPOOLER Narrative 10/27/2024 9:07 PM THREAD SPOOLER EXAM DESCRIPTION: XR SHOULDER RIGHT 2 OR [...] The left glenohumeral joint is normal. There is mild left acromioclavicular joint osteoarthritis. IMPRESSION: Mild right glenohumeral joint osteoarthritis. Mild left acromioclavicular joint osteoarthritis. THIS IS AN ELECTRONICALLY VERIFIED FINAL REPORT 10/27/2024 9:07 PM - Electronically signed by Mavlin Garcia M.D. MF: AMADEO Report ID: [id number] Reading Location: [id number] Procedure Note Malvin Garcia MD - 10/27/2024 [...] Malvin Garcia M.D. MF: AMADEO Report ID: [id number] Reading Location: [place] [address] Adarsh Velarde MD IMG XR PROCEDURES Fi nal Result * Colonoscopy (05/14/2024 7:48 AM CDT) Anatomical Region Laterality Modality Other Narrative Procedure Note Mariana Mon MD - 05/14/2024 7:48 AM CDT [facility] Patient Name: Keiry Brar Procedure Date: 05/14/2024 7:48 AM Date of : 1950 Admit Type: Outpatient Age: 73 Gender: Female Attending MD: Mariana Mon M.D. Room: [facility] ENDOSCOPY ROOM 1 Note Status: Finalized Patient [...] under direct vision. The Pediatric Colonoscope [id number] was introducedthrough the anus and advanced to [...] 7:48 AM Procedure Code(s): --- Professional --- 41720, Colonoscopy, flexible; with removal of tumor(s), polyp(s), or other lesion(s) by snare technique Diagnosis Code(s): --- Professional --- K64.8, Other hemorrhoids D12.3, Benign neoplasm of transverse colon (hepatic flexure orsplenic flexure) Z09, Encounter for follow-up examination after completed treatmentfor conditions other than malignant neoplasm Z86.010, Personal history of colonic polyps K57.30, Diverticulosis of large intestine without perforation orabscess without bleeding CPT copyright 2020 [employer]. All rights reserved. The codes documented in this report are preliminary and upon fiber artist reviewmay be revised to meet current compliance requirements. Recognized by the [employer] for promoting quality [...] given history of: post-menopausal osteoporosis prevention Screening. Clam Picker/Model: Fullbridge (S/N [id number]) CLINICAL INFORMATION: Current height: 61 inches Maximum height: 64 inches Weight: 210 pounds Risk factors: Postmenopausal, prior hip/vertebral fracture, adult fracture, smoking history [...] mass (T-score between -1.0 and -2.5) replaces the previously used term osteopenia Osteoporosis (T-score = or below -2.5) Medical evaluation for secondary causes of low bone mineral density may be appropriate. FRAX is a World Health Organization validated fracture risk assessment tool that calculates a person's 10 year probability of a major osteoporosis related fracture and hip fracture. According to the National Osteoporosis Foundation guidelines, postmenopausal [...] Malvin Garcia M.D. MF: AMADEO Report ID: [id number] Reading Location: [place] [address] Procedure Note Malvin Garcia MD - 06/05/2023 EXAM DESCRIPTION: DEXA AXIAL SKELETON BONE DENSITY 1 OR MORE SITES REASON FOR STUDY: 72 y/o year old F with given history of: post-menopausal osteoporosis prevention Screening. Clam Picker/Model: Goomeo SL (S/N [id number]) CLINICAL INFORMATION: Current height: 61 inches Maximum [...] Malvin Garcia M.D. MF: AMADEO Report ID: [id number] Reading Location: [place] [address] us Arik Colbert MD IMG DXA PROCEDURES Final Result * Screening Mammogram Bilateral W Sharad (11/11/2017 1:54 PM THREAD SPOOLER) Anatomical Region Laterality Modality Breast Bilateral Mammography Impressions 11/11/2017 1:57 PM THREAD SPOOLER BIRADS Category 2: Benign finding(s). Digital technology was employed plus computer-aided detection software (R2) was utilized in interpretation of these images. This facility utilizes a reminder system to notify patients of yearly mammograms. Electronically signed by: Pollo Loya M.D. Narrative 11/11/2017 1:57 PM THREAD SPOOLER EXAMINATION: Digital screening mammogram with tomosynthesis. HISTORY: [...] Recently Relevant to Health Maintenance Insurance MEDICARE ADVANTAGE MEDICARE ADVANTAGE AETNA MEDICARE GOLD AETNA MEDICARE GOLD Advance Directives For more information, please contact: [phone] * Full Code (Latest Code Status on [...] 6:54 PM 08/03/2023 6:17 PM Care Teams Cigarette Carton Sealer Relationship Specialty Start Date End Date Carito Agudelo MD [address] [place] [address] PCP - General Family Medicine 11/24/24 Deon Corcoran MD [address] [place] [address] Consulting Physician Pulmonary Disease 08/03/23
--- OUTSIDE RECORDS SUMMARY | 2025-01-18 09:36 | XMS_ITS | Encounter Summary ---
Author Organization [facility] Address [address] [place] [address] Phone Care Team Providers Care Stove Refinisher Name Role Phone Lars Salazar DO Primary Care Provider [phone] Rui Melo MD Primary Care Provider [phone] Arik Colbert MD Primary Care Provider [phone] Deon Corcoran MD Unavailable Carito Agudelo MD Primary Care Provider Encounter Details Date Type Department Care Team (Late st Contact Info) Description 12/31/2017 Orders Only [facility] ProviderJacobo MD [address] [place] [address] Social History Tobacco Use Types Packs/Day Years Used Date Smoking Tobacco: Every Day Alcohol Use Standard Drinks/Week Comments Yes 0 (1 standard drink = 0.6 oz pur e alcohol) Comments No Sex and Gender Information Value Date Recorded Sex Assigned at Not on file 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 us Historical Provider LAB BLOOD ORDERABLES Paige l Result documented in this encounter Visit Diagnoses Not on filedocumented in this encounter Additional Health Concerns Infection Onset Date Last Indicated Resolved Time COVID: Suspected 06/18/2023 06/18/2023 06/18/2023 11:13 AM CDT documented as of this encounter Care Teams Stove Refinisher Relationship Specialty Start Date End Date Lars Salazar DO 2 [facility] PATRICIA YESIKA [address] [place] [address] PCP - General 03/24/15 04/10/21 Rui Melo MD [address] [place] [address] PCP - General 04/11/21 05/29/23 Arik Colbert MD [address] [place] [address] PCP - General Family Practice 05/30/23 11/23/24 Carito Agudelo MD [address] [place] [address] [address] [place] [address] PCP - General Family Medicine 11/24/24 Deon Corcoran MD [address] [place] [address] [address] [place] [address] Consulting Physician Pulmonary Disease 08/03/23 documented as of this encounter
--- OUTSIDE RECORDS SUMMARY | 2025-01-18 09:36 | XMS_ITS | Patient Health Record ---
Author Organization Corporate Office Address [address] [place] [address] [address] [place] [address] Care Team Providers Care Buffing Wheel Former Automatic Name Role Phone Felicia Ann CNP Primary Care Provider [phone] Felicia Novak Unavailable Unavailable Ivis LEROY, Johann Unavailable [phone] Allergies Allergen (clinical drug ingredient) Drug/Non Drug [...] Problem Status W/U Status Risk Notes Problem Chronic kidney disease stage 3B (433050933) CKD stage G3b/A1, GFR 30-44 and albumin creatinine ratio <30 mg/g (N18.32) Active confirmed Problem Late effect of fracture of spine AND/OR trunk without spinal cord lesion (3325742) Compression fracture of T6 vertebra, sequela (S22.050S) Active confirmed Problem 340847101 Closed wedge compression fracture of T12 vertebra, initial encounter (S22.080A) Active confirmed Problem Closed fracture of thoracic vertebra without spinal cord injury (36507462) Compression fracture of T6 vertebra (S22.050A) Active confirmed Problem 155284007 Other type of osteoarthritis, unspecified site (M19.90) Active confirmed Problem 45182631 Osteoporosis, unspecified osteoporosis type, unspecified pathological fracture presence (M81.0) Active confirmed Problem 400980008 Stage 3 chronic kidney disease (N18.3) Active confirmed Problem 602413644 Cigarette nicoti ne dependence in remission (F17.211) Active confirmed Problem 446163075 Itch (L29.9) Active confirmed Problem 65626149 Secondary hyperparathyroidism (N25.81) Active confirmed Problem 749339654594202 Primary osteoarthritis of right knee (M17.11) Active confirmed Problem Pulmonary emphysema (17495801) Pulmonary emphysema, unspecified emphysema type (J43.9) 021 Active confirmed Problem 649847054 Gastroesophageal reflux disease without esophagitis (K21.9) Active confirmed Problem 990461857 Morbid obesity d ue to excess calories (E66.01) Active confirmed Problem Chronic kidney disease stage 4 (378911042) Chronic kidney disease, stage 4 (severe) (N18.4) Active confirmed Problem Panlobular emphysema (5287768) Panlobular emphysema (J43.1) 021 Active confirmed Problem 991153721372144 Hypertensive chr onic kidney disease with stage 1 through stage 4 chronic kidney disease, or unspecified chronic kidney disease (I12.9) Active confirmed Problem 53365491 Sacroiliitis, no t elsewhere classified (M46.1) Active confirmed Problem Pathological fracture of vertebra (298856476) Compression fracture of T12 vertebra (M48.54XA) Active confirmed Problem Osteoarthritis (804623071) Osteoarthritis (M19.90) Active confirmed Problem 08044648 Lumbosacral spondylosis without myelopathy (M47.817) Active confirmed Problem Tobacco abuse (33255594) Tobacco abuse (Z72.0) Active confirmed Problem Osteoarthritis of knee (882740495) Knee osteoarthritis (M17.9) Active confirmed Problem Hypertension (03214351) HTN (hypertension) (I10) Active confirmed Problem 064005949 Cervical spondyl osis without myelopathy (M47.812) Active confirmed Problem 604258309 Mixed hyperlipid emia (E78.2) Active confirmed Encounters Encounter Location Date Provider Diagnosis [facility] [address] [place], [place] [id number] 06/03/2024 Johann Langston [facility] [address] [place], [place] [id number] 06/04/2024 Johann Langston Plan Of Treatment Pending Test Test Name Order Date X ray : Knees, bilateral, A-P standing 0 04/25/2020 MRI Spine Thoracic w/o Contrast 07/19/20 EMG/NCT Legs 03/15/2022 Xray R Knee 03/06/2022 [...] PLAN [address] [place] [address] [id number] [id number] Keiry Brar Self - patient is the insured 3 Medical (General) History Medical History History ICD Code high blood pressure Arthritis in the neck back injection Surgical History Surgery Date(Month/Year) knee surgery-both knees partial hysterectomy 1977 appendectomy 1964 tonsillectomy 1955 Hospitalization History Reason Date(Month/Year) ER/SOB 03/04/23 back & chest pain 07/03/2022 Urgent Care (increased knee pain) [facility] 08/2021
--- OUTSIDE RECORDS SUMMARY | 2025-01-18 09:36 | XMS_ITS ---
Author Organization [facility] Address [address] [place] [address] Care Team Providers Care Manager Ed Name Role Phone Melissa Rush Primary Care Provider Allergies Allergen (clinical drug ingredient) Drug/Non Drug Allergy documented on EMR Reaction Allergy Type Onset Date Status Gastrografin Unknown Drug Allergy Acti ve REASON FOR VISIT 3 Month Psych F/U & Med Refill Medications Medication SIG (Take, Route, Fr equency, Duration) Notes Start Date End Date Status DULoxetine HCl 60 MG 1 capsule Orally On ce a day for 30 days Active Gabapentin 600 MG 1 tablet Orally Once a day for 30 day(s) Active DULoxetine HCl 30 MG 1 capsule Orally On ce a day for 30 days Active carBAMazepine Active traMADol HCl Active Social History Sex Assigned At : Social History Observation Description Sex Assigned At Female Encounters Encounter Location Date Provider Diagnosis [address] [place] [address] 11/18/2024 Melissa Rush Depressive disorder F32.9 Assessments Encounter Date Diagnosis (ICD Code) Assessment Notes Treatment Notes Treatment Clinical Notes Section Notes 11/18/2024 Depressive disorder (ICD-10 - F32.9) Lincoln agreement to continue current regimen. Discussed r/b/se. Continue to keep medical team informed of medications, cell efficiency supervisor, pain management. 11/18/2024 Other Reasons, potential benefits, potential risks, interactions and side effects of all medications were discussed. The Patient/Guardian asked appropriate questions, appeared to understand the answers, and decided to accept the treatment and continue being followed. Alternatives and expected course without treatment were reviewed. The Patient/Guardian is aware of the need to contact the office or return for an earlier appointment if any problems or concerns arise. May also contact the 24-hour crisis hotline ([facility]), refer to the closest emergency room or call 911 if new symptoms arise of existing symptoms worsen. The Patient/Guardian is aware that this would apply to symptoms like: suicidal ideation, homicidal ideation, high risk behaviors, manic symptoms, psychotic symptoms, physical symptoms, or any other symptoms that may be dangerous to self or others. Greater than 50% of time spent on coordination and counseling where psychopharmacology as well as psychotherapeutic interventions were discussed along with review of treatments in the past. Education provided concerning need for adequate hydration. Patient/Guardian verbalized understanding of education, treatment plan and follow up. This session was completed telephonically with client/parental/guardi an consent: Unable to determine movement status, assess appearance, affect, AIMS, or vital signs. Plan Of Treatment Medication Medication Name Sig Start Date Stop Date Notes DULoxetine HCl 60 MG 1 capsule Orally On ce a day for 30 days DULoxetine HCl 30 MG 1 capsule Orally On ce a day for 30 days Treatment Notes Assessment Notes Depressive disorder Lincoln agreement to continue current regimen. Discussed r/b/se. Continue to keep medical team informed of medications, cell efficiency supervisor, pain management. Other Reasons, potential benefits, potential risks, interactions and side effects of all medications were discussed. The Patient/Guardian asked appropriate questions, appeared to understand the answers, and decided to accept the treatment and continue being followed. Alternatives and expected course without treatment were reviewed. The Patient/Guardian is aware of the need to contact the office or return for an earlier appointment if any problems or concerns arise. May also contact the 24-hour crisis hotline ([facility]), refer to the closest emergency room or call 911 if new symptoms arise of existing symptoms worsen. The Patient/Guardian is aware that this would apply to symptoms like: suicidal ideation, homicidal ideation, high risk behaviors, manic symptoms, psychotic symptoms, physical symptoms, or any other symptoms that may be dangerous to self or others. Greater than 50% of time spent on coordination and counseling where psychopharmacology as well as psychotherapeutic interventions were discussed along with review of treatments in the past. Education provided concerning need for adequate hydration. Patient/Guardian verbalized understanding of education, treatment plan and follow up. This session was completed telephonically with client/parental/guardian consent: Unable to determine movement status, assess appearance, affect, AIMS, or vital signs. Next Appt Details Follow Up: 3 Months, Reason: Psych F/U, may be telehealth Progress Notes * Lucila BRARvazquezDOB:1950 (74 yo F)Acc No.[id number]:11/18/2024 Patient: Keiry SWEENEY Provider: Teri Rush, MSN, MATH COACH, FIREARMS INSPECTOR-C :1950 A ge:74 Y S ex:Female Date:11/18/2024 Address:[address] [place] [address], [address] [facility] Subjective: * Chief Complaints: * 3 Month Psych F/U & Med Refill * HPI: D epression Screening: PHQ-9 L ittle interest or pleasure in doing things N ot at all, F eeling down, depressed, or hopeless N ot at all, T rouble falling or staying asleep, or sleeping too much N early every day, F eeling tired or having little energy M ore than half the days, P oor appetite or overeating S everal days, F eeling bad about yourself or that you are a failure, or have let yourself or your family down S everal days, T rouble concentrating on things, such as reading the newspaper or watching television S everal days, M oving or speaking so slowly that other people could have noticed; or the opposite, being so fidgety or restless that you have been moving around a lot more than usual N ot at all, T houghts that you would be better off or of hurting yourself in some way N ot at all, T otal Score 8 , I nterpretation M ild Depression. I ntervention D epression Screening Findings N egative, F ollow-Up for Depression .. S creening: [place] Suicide Severity Rating Scale (LF) D o you want to initiate with S creener form, 1 . Wish to be : Have you wished you were or wished you could go to sleep and not wake up? N o, 2 . Suicidal Thoughts: Have you actually had any thoughts of killing yourself? N o, 6 . Suicide Behaviour: Have you ever done anything,started to do anything, or prepared to end your life? N o, I nterpretation: L ow Risk. C SSRS Interpretation and Follow Up Plan: CSSRS Interpretation and Follow Up Plan C SSRS Screen documented using SF Y es, R isk Disposition from SF L ow - No Follow Up Plan Required, F ollow Up Plan N o Follow Up Plan required at this time.. P sychiatric Assessment - Current Symptoms: How ct. doing today? Client is a 74 yo F on the phone stating it is life. Reports she has been taking medications well, Cymbalta, denies SE. Depression: Denies, 0/10 Anxiety: 1/10 Anger/irritability: Irritable at times, things that happen can frustrate me. Sleep: I think I have my days and nights mixed a bit, not sleeping at night well, in intervals. States sounds of the neighborhood wake her or her bladder or her arthritis. Energy: Low Appetite: That is okay, I eat the same as always, eat a little throughout. Social: Talks with family often, I bug my daughter to . Drugs/ETOH: Denies Hallucinations/paranoia: Denies Denies SI/HI. Medical changes/concerns: Denies. * ROS: P sych ROS: Constitutional D enies. E yes D enies. E ars/Nose/Mouth/Throat D enies. R espiratory D enies. A llergic/Immunologic D enies.?Cardiovascular D enies. G I D enies. G U R eports, C KD. M usculoskeletal R eports, o steoporosis, arthritis . N eurological D enies. I ntegumentary D enies. E ndocrine D enies. H ematological/Lymphatic D enies. P sych R eports minimal anxiety, Denies SI/HI. ? * Medical History: * Surgical History: t onsillectomy and adenoidectomy appendectomy hysterectomy section * Hospitalization/Major Diagno stic Procedure: c hildbirth surgeries [facility] * Family History: Saskia chow(s): alive, diabetes, hernia disk. F ather: . M other: . S iblings: alive, Younger brother: brother: ADHD, diabetes, heart attack, kidney failureSister: bipolar, . 2 brother(s) , 1 sister(s) - healthy. 1 daughter(s) - healthy. . * Social History: P rimary Social History: L iving Arrangement L iving Arrangement: Independent Living , Is this a supportive environment? Yes .. A lcohol Use A lcohol Use Frequency: N ever. I llicit Substance Usage Illicit Substance Usage: N o. E mployment Status E mployment Status: O n Disability. * Medications: T akingtraMADol HCl carBAMazepine Gabapentin 600 MG Tablet 1 tablet Orally Once a day DULoxetine HCl 60 MG Capsule Delayed Release Particles 1 capsule Orally Once a day DULoxetine HCl 30 MG Capsule Delayed Release Particles 1 capsule Orally Once a day Taking traMADol HCl Taking carBAMazepine Taking Gabapentin 600 MG Tablet 1 tablet Orally Once a day Taking DULoxetine HCl 60 MG Capsule Delayed Release Particles 1 capsule Orally Once a day Taking DULoxetine HCl 30 MG Capsule Delayed Release Particles 1 capsule Orally Once a day * Allergies: G astrografinno[Allergies Verified] Objective: * Vitals: * Examination: M ental Status Exam: SENSORIUM AND COGNITION Alert, Oriented to Person, Oriented to Place, Oriented to Time, Oriented to Situation. ATTENTION AND CONCENTRATION No deficits. ATTITUDE AND BEHAVIOR Cooperative, Receptive. MEMORY Immediate, Recent, Remote. MOOD Euthymic. SPEECH QUANTITY V erbose. SPEECH QUALITY Appropriate volume. THOUGHT PROCESS Coherent and goal directed. THOUGHT CONTENT Appropriate - WNL. SUICIDAL IDEATION Denies suicidal ideation. HOMICIDAL IDEATION Denies homicidal ideation. HALLUCINATIONS Denies hallucinations. INSIGHT F air. JUDGMENT F air. FUND OF KNOWLEDGE F air. ABILITY TO PARTICIPATE IN TREATMENT M oderate. WILLINGNESS TO PARTICIPATE IN TREATMENT M oderate. E xam limited due to telephone encounter. Assessment: * Assessment: 1. D epressive disorder - F32.9 (Primary) Plan: * Treatment: 2. O thers Notes: Reasons, potential benefits, potential risks, interactions and side effects of all medications were discussed. The Patient/Guardian asked appropriate questions, appeared to understand the answers, and decided to accept the treatment and continue being followed. Alternatives and expected course without treatment were reviewed. The Patient/Guardian is aware of the need to contact the office or return for an earlier appointment if any problems or concerns arise. May also contact the 24-hour crisis hotline ([facility]), refer to the closest emergency room or call 911 if new symptoms arise of existing symptoms worsen. The Patient/Guardian is aware that this would apply to symptoms like: suicidal ideation, homicidal ideation, high risk behaviors, manic symptoms, psychotic symptoms, physical symptoms, or any other symptoms that may be dangerous to self or others. Greater than 50% of time spent on coordination and counseling where psychopharmacology as well as psychotherapeutic interventions were discussed along with review of treatments in the past. Education provided concerning need for adequate hydration. Patient/Guardian verbalized understanding of education, treatment plan and follow up. This session was completed telephonically with client/parental/guardian consent: Unable to determine movement status, assess appearance, affect, AIMS, or vital signs. * Procedure Codes: * Follow Up: 3 Months (Reason: Psych F/U, may be telehealth) * * IR WELDER Sign off status: Completed true * Provider: Teri Rush, MSN, MATH COACH, FIREARMS INSPECTOR-C Date: 0 11/18/2024 Generated for [place] white/Billie/María Elenaitting on: 0 01/18/2025 09:36 AM CDT History and Physical Notes * HPI (History of Present Illness) Category Sub-Category Detail Notes Category Not es Depression Screening PHQ-9 Little inte rest or pleasure in doing things: Not at all Feeling down, depressed, or hopeless: No t at all Trouble falling or staying asleep, or sl eeping too much: Nearly every day Feeling tired or having little energy: M ore than half the days Poor appetite or overeating: Several day s Feeling bad about yourself o r that you are a failure, or have let yourself or your family down: Several days Trouble concentrating on thi ngs, such as reading the newspaper or watching television: Several days Moving or speaking so slowly that other people could have noticed; or the opposite, being so fidgety or restless that you have been moving around a lot more than usual: Not at all Thoughts that you would be b tova off or of hurting yourself in some way: Not at all Total Score: 8 Interpretation: Mild Depression Intervention Depression Screening Findings: N egative Follow-Up for Depression: . Psychiatric Assessment - Current Symptoms How ct. doing today? Client is a 74 yo F on the phone stating it is life. Reports she has been taking medications well, Cymbalta, denies SE. Depression: Denies, 0/10 Anxiety: 1/10 Anger/irritability: Irritable at times, things that happen can frustrate me. Sleep: I think I have my days and nights mixed a bit, not sleeping at night well, in intervals. States sounds of the neighborhood wake her or her bladder or her arthritis. Energy: Low Appetite: That is okay, I eat the same as always, eat a little throughout. Social: Talks with family often, I bug my daughter to . Drugs/ETOH: Denies Hallucinations/paranoia: Denies Denies SI/HI. Medical changes/concerns: Denies Screening [place] Suicide Severity Rating Scale (LF) Do you want to initiate with: Screener form 1. Wish to be : Have you wished you were or wished you could go to sleep and not wake up?: No 2. Suicidal Thoughts: Have you actually had any thoughts of killing yourself?: No 6. Suicide Behavior Question: Have you ever done anything,started to do anything, or prepared to end your life?: No Interpretation:: Low Risk CSSRS Interpretation and Follow Up Plan CSSRS Interpretation and Follow Up Plan CSSRS Screen documented using SF: Yes Risk Disposition from SF: Low - No Follo w Up Plan Required Follow Up Plan: No Follow Up Plan requir ed at this time. Examination Category Sub-Category Detail Notes Category Not es Mental Status Exam SENSORIUM AND COGNITION Alert, Oriented to Person, Oriented to Place, Oriented to Time, Oriented to Situation Exam limited due to telephone encounter. ATTENTION AND CONCENTRATION No deficits ATTITUDE AND BEHAVIOR Cooperative, Client Retention Specialist tive MEMORY Immediate, Recent, R emote MOOD Euthymic SPEECH QUANTITY Verbose SPEECH QUALITY Appropriate volume THOUGHT PROCESS Coherent and goal di rected THOUGHT CONTENT Appropriate - WNL SUICIDAL IDEATION Denies suicidal idea tion HOMICIDAL IDEATION Denies homicidal gamaliel ation HALLUCINATIONS Denies hallucination s INSIGHT Fair JUDGMENT Fair FUND OF KNOWLEDGE Fair ABILITY TO PARTICIPATE IN TREATMENT Mode rate WILLINGNESS TO PARTICIPATE IN TREATMENT Moderate
--- OUTSIDE RECORDS SUMMARY | 2025-01-18 09:37 | XMS_ITS | Clinical Summary ---
Author Organization [facility] Address [address] [address] Phone Care Team Providers Care Client Services Director Name Role Phone Mingo Guadarrama APRN, CNP Primary Care Provider Allergies Active Allergy Reactions [...] Diagnosed Date HTN (hypertension) Osteoarthritis Neck pain Encounters Date Type Department Care Team Description 01/18/2025 Travel 01/04/2025 Transcribe Orders [facility] Central Scheduling [address] [place] [address] Sean Hull MD Right shoulder pain, unspecified chronicity (Primary Dx); Unilateral primary osteoarthritis, right knee; Unilateral primary osteoarthritis, left knee; Other cervical disc degeneration at C6-C7 level; Other cervical disc degeneration at C5-C6 level; Tear of right rotator cuff, unspecified tear extent, unspecified whether traumatic from Last 3 Months Immunizations Immunization Administration Dates Next Due Tetanus [...] 114 04/29/2017 6:34 AM CDT Temperature 36.3 C (97.3 F) 04/29/2017 6:34 AM CDT Respiratory Rate 18 04/29/2017 6:34 AM CDT Oxygen Saturation 95% 04/29/2017 6:34 AM CDT Inhaled Oxygen Concentration - - Weight 95.3 kg (210 lb) 04/29/2017 6:34 AM CDT Height 162.6 cm (5' 4 ) 04/29/2017 6:34 AM CDT Body Mass Index 36.05 04/29/2017 6:34 AM CDT Plan of Treatment Upcoming Encounters Date Type Department Care Team (Late st Contact Info) Description 01/19/2025 7:00 AM CDT Appointment [facility] MRI [address] [place] [address] Sean Hull MD [address] [place] [address] Discharge Disposition: Discharged to home or Selfcare Health Maintenance Due Date Last Done Comments Kristina 2002 Immunochemical Fecal Occult Blood 2002 Mammogram 11/11/2018 11/11/2017 Zoster Immunization (3 of 3) 07/23/2019, 03/11/2019 Pneumococcal Immunization (5 0+ years) (2 of 2 - PPSV23) 03/11/2020 03/11/2019 SARS-COV-2 Immunization (1 - season) 2024 DEXA Bone Density 06/05/2025 06/05/2023, 08/06/2022, 11/11/2017 Influenza Immunization (Seas on Ended) 2025 Respiratory Syncytial Virus (RSV) Immunization (Adult) (1 - 1-dose 75+ series) 2027 Colonoscopy 05/14/2034 05/14/2024 Colorectal Cancer Screening 05/14/2034 05/14/2024 TdaP Immunization Completed 10/14/2012 Hepatitis C Virus (HCV) Screening Completed 03/07/2016 Pneumococcal Immunization Combined Discontinued 03/11/2019 Hepatitis B Immunization Aged Out No longer [...] DETECTED NON DETECTED 03/07/2016 9:18 PM CDT [facility] Comment: IGM Antibodies to HAV not detected. Does not exclude early acute or recovered HAV infection. HEP B CORE AB (IGM) NON DETECTED NON DETECTED 03/07/2016 9:18 PM CDT [facility] Comment: IGM anti-HBC not detected. Does not exclude the possibility of exposure to or infection with HBV. HEPATITIS B SURFACE ANTIGEN NON DETECTED NON DETECTED 03/07/2016 9:18 PM CDT [facility] hepatitis C antibody 0.07 <1 S/CO 03/07/2016 9:18 PM CDT [facility] Comment: Signal/Cutoff ratio < 0.79 is Nondetected Signal/Cutoff ratio 0.80-0.99 is Grayzone Signal/Cutoff ratio > 0.99 is Detected Supplemental assays are recommended if signal/cutoff ratio is >/=1.00. Signal/cutoff ratio result >/= 5.00 is 97% predictive of positivity for recombinant immunoblot assay (RIBA) and will be reported to the [place] Department of Public Health as required. Blood specimen (specimen) Venipuncture / Unknown 03/07/2016 7:00 AM CDT 03/07/2016 10:28 AM CDT us Nikolas Colmenares MD HEMATOLOGY ORDERABLES Final Re sult [facility] [address] [facility] [place] [address] from Last 3 Months or Most Recently Relevant to Health Maintenance Insurance MEDICARE C [employer] Care Teams Client Services Director Relationship Specialty Start Date End Date Mingo Guadarrama, BROKE WORKER, WHEEL PRESS OPERATOR [address] [place] [address] [place] [address] PCP - General Certified Nurse Practitioner 10/05/16
--- OUTSIDE RECORDS SUMMARY | 2025-01-18 09:37 | XMS_ITS | Data Portability ---
Author Organization [facility] Address [address] [place] [address] Care Team Providers Care Grade Tamper Name Role Phone ALMA GRISELDA Primary Care Provider SERENE GONZÁLES Central Scheduler JERRY HULL Orthopedic Surgeon THOMAS MARIN Felt Hat Pouncing Operator Hand [phone] LIANNE MORSE Pain Management Assessment No assessment recorded. Plan of Treatment Reminders Order Date Submit Date Provider Last Modified By Organization Details Last Modified Time Details Appointments None recorded. Lab None recorded. Referral None recorded. Procedures None recorded. Surgeries None recorded. Imaging None recorded. Medication Orders fluticasone propionate 50 mcg/actuati on nasal spray,suspe nsion 2024 025 [facility] [id number], [address] [place], [place], [id number], 12:27:16 omeprazole 20 mg capsule,del ayed release 2024 025 [facility] [id number], [address] [place], [place], [id number], 12:27:14 Patient TargetsNo targets recorded. Patient Instructions Encounter Date Encounter Id Patient Instructions Last Modified By Organization Details Last Modified Time 08/06/2024 [id number] Quitting Tobacco : Care Instructions [email or web address] Not available 08/06/2024 17:03:05 osteoporosis: ca re instructions [email or web address] Not available 08/06/2024 17:03:05 A healthy lifest yle: care instructions rgriffon Not available 08/06/2024 17:03:05 I saw the patien t with the resident. I agree with the resident's assessment and plan as documented -Patient with chronic medical problems however records not available -Repeat blood pressure WNL -RTC in 3 months Guanako Velasco MD Not available 08/06/2024 10:07:58 10/27/2024 [id number] seasonal allergi es: care instructions rgriffon Not available 10/27/2024 12:26:56 A healthy lifest yle: care instructions rgriffon Not available 10/27/2024 11:48:47 tetanus and diphtheria booster: care instructions rgriffon Not available 10/27/2024 12:26:56 gastroesophageal reflux disease (GERD): care instructions rgriffon Not available 10/27/2024 12:26:56 I was present in the clinic to discuss this patient at the time of the visit. I agree with the documented assessment and plan Guanako Velasco MD Not available 10/27/2024 12:56:55 Reason for Referral None Reported. Results Created Date Observation Date Name Description Value Unit Range Abnormal Flag Note LastModifiedBy Organization Detail LastModifiedTime Result Notes None recorded. Problems Name Problem SNOMED Code Status Onset Date Resolution Date Notes Provider Name and Address Organization Details Recorded Time Obesity 141792214 Active 2023 GRISELDA MARQUEZ MD Attn: Elizabeth meyers,[address] [facility], [place], [address], [place] - [facility] 09:29:25 Osteoporosis 42445420 Active 2023 Follows with endocrin ology. GRISELDA MARQUEZ MD Attn: Elizabeth meyers,[address] [facility], [place], [address], [place] [facility] 5 12:06:43 Osteoporotic fracture Active 2023 GRISELDA MARQUEZ MD Attn: Elizabeth meyers,[address] [facility], [place], [address], [place] [facility] 4 09:39:57 Gastroesopha geal reflux disease 442743213 Active 2023 GRISELDA MARQUEZ MD Attn: Elizabeth meyers,[address] [facility], [place], [address], [facility] - [facility] 4 09:42:38 Neuropathy 732405892 Active 2023 GRISELDA MARQUEZ MD Attn: Elizabeth meyers,[address] [facility], [place], [address], [place] - [facility] 4 10:50:23 Chronic kidney disease 661015001 Active 2023 Follows with nephrolo gy. 09/17- Cr 2.20, BUN 42, GFR 22 GRISELDA MARQUEZ MD Attn: Elizabeth meyers,[address] [facility], [place], [address], [facility] - SI 4 23:35:22 Problem Notes None recorded. Procedures Surgical History Date Name Laterality Status Provider Name and Address Organization Details Recorded Time colonoscopy completed Rachel Traylor [place] - [facility] 08/06/2024 09:00:42 transposition of ulnar nerve at elbow completed GRISELDA MARQUEZ MD Attn: Accounting,[address] [facility], [place], [address], [facility] - [facility] 08/06/2024 09:36:02 Appendectomy completed Nicole Borrero [facility] 01/07/2025 13:28:00 tonsillectomy completed Nicole Borrero [facility] SI 01/07/2025 13:28:19 section completed Nicole paul [facility] 01/07/2025 13:28:34 hysterectomy completed Nicole Borrero [facility] 01/07/2025 13:28:48 Imaging Results None recorded. Procedure Notes None recorded. Medical Equipment None Reported. Allergies Allergen ID Allergen Name Allergen Category Reaction Reaction Severity Criticality Documentation Date Start Date Code Code System Note Provider Name and Address Organization Details Recorded Time 542277 Ozempic medicatio n nausea severe Not available 08/06/2024 RxNorm Not Available Not Available Not Available 925995 Iodinated contrast media (substanc e) medicatio n Not available Not available high 10/29/2024 69696 2004 SNOMED Not Available Not Available Not Available Medications Name Sig Start Date Stop Date Status Note LastModified by Organization Details LastModified Time atorvasta tin 40 mg tablet TAKE 1 TABLET BY MOUTH EVERY DAY AT BEDTIME active Not Available Not Available No t Available carvedilo l 25 mg tablet TAKE 1 TABLET BY MOUTH EVERY 12 HOURS WITH FOOD active Not Available Not Available No t [...] mg tablet TAKE 1 TABLET BY MOUTH TWO TO THREE TIMES DAILY NEEDED active Not Available Not Available No t Available gabapenti n 300 mg capsule TAKE 2 CAPSULES BY MOUTH AT BEDTIME active Not Available Not Available No t Available omeprazol e 20 mg capsule,d elayed release TAKE 1 CAPSULE BY MOUTH EVERY DAY active Not Available Not Available No t Available albuterol sulfate HFA 90 mcg/actua tion aerosol inhaler INHALE 2 PUFFS BY MOUTH EVERY 4-6 HOURS NEEDED FOR SHORTNES S OF BREATH OR WHEEZING 08/06 completed stopped Not Available Not Available Not Available fluticaso ne propionat e 50 mcg/actua tion nasal spray,brandon pension USE 1 SPRAY IN EACH NOSTRIL ONCE DAILY active Not Available Not Available No t Available calcitrio l 0.25 mcg capsule TAKE 1 CAPSULE BY MOUTH 3 TIMES A WEEK active Not Available Not Available No t Available duloxetin e 30 mg capsule,d elayed [...] Not Available Vitals Date Recorded Body height Body mass index (BMI) Body weight Body temperature Heart rate Respiratory rate Systolic blood pressure Diastolic blood pressure Provider Name and Address Organization Details Last Updated DateTime 4 157.48 cm 35.3 kg/m2 04135.0 3 g 98.3 [degF] 68 /min 18 /min 144 mm[Hg] 80 mm[Hg] Rachel Traylor MA [facility] 4 08:55:27 Date Recorded Systolic blood pressure Diastolic blood pressure Provider Name and Address Organization Details Last Updated DateTime 08/06/2024 104 mm[Hg] 70 mm[Hg] PLACIDO Ventura [facility] 08/06/2024 10:07:44 Date Recorded Body height Body mass index (BMI) Body weight Body temperature Heart rate Respiratory rate Systolic blood pressure Diastolic blood pressure Provider Name and Address Organization Details Last Updated DateTime 5 157.48 cm 36.1 kg/m2 29805.4 g 98.3 [degF] 84 /min 18 /min 124 mm[Hg] 80 mm[Hg] Rachel Traylor MA [facility] 5 11:29:25 Date Recorded Body height Body mass index (BMI) Body weight Heart rate Oxygen saturation Oxygen saturation in Arterial blood by Pulse oximetry Respiratory rate Systolic blood pressure Diastolic blood pressure Provider Name and Address Organization Details Last Updated DateTime 157.48 cm 37 kg/m2 25493.7 1 g 70 /min 98 % 98 % 20 /min 103 mm[Hg] 70 mm[Hg] Nicole AdairPLACIDO [facility] 11:02:55 Social History Question Answer Notes LastModified by Organizat ion Details LastModified Time Tobacco Smoking Status Current Every Day Smoker Rachel Traylor MA [facility], [place] - [facility] 08/06/2024 08:57:34 In The 14 Days Before Symptom Onset, Have You Had Close Contact With A Laboratory-confirm ed COVID-19 While That Case Was Ill? No Information n ot available 01/07/2025 In The 14 Days Before Symptom Onset, Have You Had Close Contact With A Person Who Is Under Investigation For COVID-19 While That Person Was Ill? No Information not available 01/07/2025 Have You Been To An Area Known To Be High Risk For COVID-19? No Information not available 01/07/2025 What Was The Date Of Your Most Recent Tobacco Screening? 01/07/2025 Information not available 01/07/2025 How Much Tobacco Do You Smoke? 0.5 PPD Information not available 08/06/2024 Has Tobacco Cessation Counseling Been Provided? Yes Information not available 08/06/2024 On What Date Was Tobacco Cessation Counseling Provided? 01/07/2025 Information not available 01/07/2025 How Many Years Have You Smoked Tobacco? 15 Information not available 08/06/2024 Sex: Female Functional Status None recorded. Mental Status None recorded. Family History Relationship Description Onset Age of this Age Resolved Age Notes LastModified by Organization Details LastModified Time Mother Hypertensive disorder [email or web address] Not available 08/06 08:59:57 Mother Chronic renal failure [email or web address] Not available 2024 13:30:07 Mother Blood coagulation disorder lgoodema Not available 2024 13:30:19 Father Hypercholest erolemia jlambertma Not available 10/24 /2024 09:00:19 Maternal Grandfather Chronic renal failure lgoodema Not available 2024 13:30:07 Brother Chronic renal failure lgoodema Not available 2024 13:30:07 Brother Alcohol abuse lgoodema Not available 2024 13:30:26 Brother Attention deficit hyperactivit y disorder lgoodema Not available 01/07 13:30:35 Brother Diabetes mellitus lgoodema Not available 2024 13:30:44 Brother Hypertensive disorder lgoodema Not available 2024 13:30:55 Notes:01/07/25 Medical History Condition Response Diabetes Y Acid Reflux (GERD) Y High Blood Pressure Y Kidney or Bladder Problems Y Gynecological History Statement/Question Response Date of Last Mammogram Obstetrics History GPAL:G 0 P 0 0 0 0 Immunizations Vaccine Type Date Status Note Provider Nam e and Address Organization Details Recorded Time zoster recombinant 9 completed GRISELDA MARQUEZ MD Attn: Accounting,[address] [place], [address], [place] [facility] 08/06/2024 09:27:55 Tdap 3 completed GRISELDA MARQUEZ MD Attn: Accounting,[address] [place], [address], [facility] - [facility] 08/06/2024 09:27:55 Pneumococcal conjugate PCV 13 9 completed GRISELDA MARQUEZ MD Attn: Accounting,[address] [place], [address], [place] [facility] 08/06/2024 09:27:55 zoster live 9 completed GRISELDA MARQUEZ MD Attn: Accounting,[address] [place], [address], [place] [facility] 08/06/2024 09:27:55 Past Encounters Encounter ID Performer Location Encounter Start Date Encounter Closed Date Diagnosis/Indication Diagnosis SNOMED-CT Code Diagnosis ICD10 Code Diagnosis Note [id number] MD Syed Piña 14 IM [address] [facility] [place] [address] 08/06/2024 08:43:45 08/27/2024 08:46:33 Obesity 288027316 E66.9 Healthy lifestyle encouraged including regular exercise of at least 150min per week, diet rich in plant based foods and low in added sugars, processed carbohydra caesar, and high salt foods. Nicotine dependence 5629 4008 F17.200 Smoking 1/2 pack per day. Discussed cessation. Osteoporosis 45605899 M8 1.0 Is following with endocrinol gregorio in [place]. Was taking teriparati de but after taking it for two years wanted to switch to q6 month injection but it is too expensive. Will follow up with her. Gastroesop hageal reflux disease 969833009 K21.9 Continue prilosec 20 mg daily. [id number] MD Syed Piña 14 IM [address] [facility] [place] [address] 10/27/2024 11:14:07 11/18/2024 13:52:45 Obesity 514052559 E66.9 Healthy lifestyle encouraged including regular exercise of at least 150min per week, diet rich in plant based foods and low in added sugars, processed carbohydra caesar, and high salt foods. Gastroesop hageal reflux disease 893651974 K21.9 Continue prilosec 20 mg daily. In the past has tried to stop but symptoms returned. Discussed GERD lifestyle modificati ons. Vaccine de clined by patient 9604487835 02 Z28.21 declines flu shot Administra tion of pneumococcal vaccine 31846148 Z23 Discussed benefit of pneumonia vaccine which we do not carry in office. Will prescribe to pharmacy. Administra tion of diphtheria, pertussis, and tetanus vaccine 482548654 Z23 Discussed benefits of updated tetanus. Unable to give in office. Will prescribe to pharmacy. Seasonal allergy 5857180 04 J30.2 Would like refill for flonase for seasonal allergies. Breast can cer screening declined 2414425143 7374350 Z53.20 Was frustrated by false pos mammo requiring breast biopsy in the past and she states she would rather do self breast exam. Health Concerns Section Related Observation LastModified by Organization Detai ls LastModified Time None Recorded Concern Status LastModified by Organization Details LastModified Time None Recorded Advance Directives Directive None Recorded Payers Encounter Date Sequence Insurance Name Policy Number Policy Miguel Covered Member ID Miguel Member ID Guarantor Name 08/06/2024 1 [employer] (MEDICARE REPLACEMENT/A DVANTAGE - HMO) [id number] Keiry Montes Brar [id number] Keiry Brar 10/27/2024 1 [employer] - 65+ - [employer] (MEDICARE REPLACEMENT/A DVANTAGE - POS) [id number] Keiry Brar [id number] Keiry Brar Notes Date Note Type Note Provider Name and Address Organization Details Recorded Time 08/06/2024 text/html Keiry is a 73 y ear old female who presents to the clinic to establish care. Was told by prior doctor that she is not welcome back. Moved from [place] a year ago. Daughter liver here. CKD-Sees nephrology, appt in September Osteoporosis- Reports back fracture a few years ago that occurred while walking her dog- Saw Dr. Hull for OA pain- Was on teripratide; is seeing endocrinology in [place]- Has appt with pain management in August Depression/Anxiety- sees Aishwarya Prediabetes- Reports was started on ozempic. Stopped due to nausea. Trigger finger- s/p surgery GERD- takes prilosec 20 mg daily Had labs a couple of months ago. Guanako Velasco MD Attn: Accounting,[address] [facility], [place], [address], [facility] - [facility] 08/26/2024 22:13:25 10/27/2024 text/html Keiry is a 73 y /o F who presents to the clinic for refill of her medications. States she has been taking 20 mg of omeprazole for reflux symptoms. Has tried to stop in the past with quick return of symptoms. Would also like flonase refilled for seasonal allergies. 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
--- OUTSIDE RECORDS SUMMARY | 2025-01-18 09:37 | XMS_ITS | Referral Summary ---
Author Organization [facility] Address [address] [place] [address] Care Team Providers Care Cloth Colors Examiner Name Role Phone Deon Corcoran MD Unavailable Carito Agudelo MD Primary Care Provider Encounters Date Type Department Care Team Description 12/18/2024 1:05 PM BINDER CUTTER - 12/18/2024 11:59 PM BINDER CUTTER Hospital Encounter [address] [address] Rib pain Discharge Disposition: Discharge to home or self care 10/27/2024 12:07 PM BINDER CUTTER - 10/27/2024 11:59 PM BINDER CUTTER Hospital Encounter [address] [address] Lumbar radiculopathy; Radiculopathy, cervical; Radiculopathy, thoracic region; [...] on file Legal Sex Female 3:20 AM BINDER CUTTER Gender Identity Not on file Sexual Orientation [...] Read Routine (OP Routine) 12/18/2024 1:15 PM BINDER CUTTER Rib pain XR SHOULDER LEFT 2 OR MORE VIEWS Schedule Routine, Read Routine (OP Routine) 10/27/2024 12:39 PM BINDER CUTTER Arthralgia of shoulder, unspecified laterality XR SHOULDER RIGHT 2 OR MORE VIEWS Schedule Routine, Read Routine (OP Routine) 10/27/2024 12:39 PM BINDER CUTTER Arthralgia of shoulder, unspecified laterality COLONOSCOPY 05/14/2024 7:48 AM CDT DEXA AXIAL SKELETON BONE DENSITY 1 OR MORE SITES Schedule Routine, Read Routine (OP Routine) 06/05/2023 8:14 AM CDT Asymptomatic menopausal state SCREENING MAMMOGRAM BILATERAL W SHARAD Schedule Routine, Read Routine (OP Routine) 11/11/2017 1:54 PM BINDER CUTTER Screening breast examination from Last 3 Months or Most Recently Relevant to Health Maintenance Results * XR Chest PA Lateral 2 Views (12/18/2024 1:15 PM BINDER CUTTER) Anatomical Region Laterality Modality Body, Chest N/A [...] is unchanged from CT of 03/18/2024. Otherwise, [id number] spondylosis. IMPRESSION: Emphysematous change with no acute infiltrate. Prominent wedging/compression fracture midthoracic spine is unchanged from CT of 03/18/2024. THIS IS AN ELECTRONICALLY VERIFIED FINAL REPORT 12/20/2024 3:45 PM - Electronically signed by Malvin Barlow M.D. MJ: CASSIUS Report ID: [id number] Reading Location: [id number] Procedure Note Malvin Barlow MD - 12/20/2024 [...] is unchanged from CT of 03/18/2024. Otherwise, mnvt-hp-zaeyzotq spondylosis. IMPRESSION: Emphysematous change with no acute infiltrate. Prominent wedging/compression fracture midthoracic spine is unchangedfrom CT of 03/18/2024. THIS IS AN ELECTRONICALLY VERIFIED FINAL REPORT 12/20/2024 3:45 PM - Electronically signed by Malvin Barlow M.D. MJ: CASSIUS Report ID: [id number] Reading Location: [id number] Tremayne Lares MD IMG XR PROCEDURES Final Result * XR Shoulder Right 2 or More Views (10/27/2024 12:39 PM BINDER CUTTER) Anatomical Region Laterality Modality Upper Extremities, Shoulder Right Comp uted Radiography 10/27/2024 9:04 PM BINDER CUTTER Narrative 10/27/2024 9:07 PM BINDER CUTTER EXAM DESCRIPTION: XR SHOULDER RIGHT 2 OR [...] Malvin Garcia M.D. MF: AMADEO Report ID: [id number] Reading Location: [id number] Procedure Note Malvin Garcia MD - 10/27/2024 [...] Malvin Garcia M.D. MF: AMADEO Report ID: [id number] Reading Location: [place] [address] Adarsh Velarde MD IMG XR PROCEDURES Fi nal Result * XR Shoulder Left 2 or More Views (10/27/2024 12:39 PM BINDER CUTTER) Anatomical Region Laterality Modality Upper Extremities, Shoulder Left Comp uted Radiography 10/27/2024 9:04 PM BINDER CUTTER Narrative 10/27/2024 9:07 PM BINDER CUTTER EXAM DESCRIPTION: XR SHOULDER RIGHT 2 OR [...] Malvin Garcia M.D. MF: AMADEO Report ID: [id number] Reading Location: [id number] Procedure Note Malvin Garcia MD - 10/27/2024 [...] Malvin Garcia M.D. MF: AMADEO Report ID: [id number] Reading Location: [place] [address] Adarsh Velarde MD IMG XR PROCEDURES Fi nal Result * Colonoscopy (05/14/2024 7:48 AM CDT) Anatomical Region Laterality Modality Other Narrative Procedure Note Mariana Mon MD - 05/14/2024 7:48 AM CDT [facility] Patient Name: Keiry Brar Procedure Date: 05/14/2024 7:48 AM Date of : 1950 Admit Type: Outpatient Age: 73 Gender: Female Attending MD: Mariana Mon M.D. Room: [facility] Note Status: Finalized [...] under direct vision. The Pediatric Colonoscope [id number] was introducedthrough the anus and advanced to [...] 7:48 AM Procedure Code(s): --- Professional --- 38466, Colonoscopy, flexible; with removal of tumor(s), polyp(s), or other lesion(s) by snare technique Diagnosis Code(s): --- Professional --- K64.8, Other hemorrhoids D12.3, Benign neoplasm of transverse colon (hepatic flexure orsplenic flexure) Z09, Encounter for follow-up examination after completed treatmentfor conditions other than malignant neoplasm Z86.010, Personal history of colonic polyps K57.30, Diverticulosis of large intestine without perforation orabscess without bleeding CPT copyright 2020 [employer]. All rights reserved. The codes documented in this report are preliminary and upon physical instructor reviewmay be revised to meet current compliance requirements. Recognized by the [place] [employer] for promoting quality [...] given history of: post-menopausal osteoporosis prevention Screening. Java Web Engineer/Model: [employer] SL (S/N 00085) CLINICAL INFORMATION: Current height: 61 inches Maximum [...] Malvin Garcia M.D. MF: AMADEO Report ID: [id number] Reading Location: [place] [address] Procedure Note Malvin Garcia MD - 06/05/2023 EXAM DESCRIPTION: DEXA AXIAL SKELETON BONE DENSITY 1 OR MORE SITES REASON FOR STUDY: 72 y/o year old F with given history of: post-menopausal osteoporosis prevention Screening. Java Web Engineer/Model: [employer] SL (S/N 22037) CLINICAL INFORMATION: Current height: 61 inches Maximum [...] Malvin Garcia M.D. MF: AMADEO Report ID: [id number] Reading Location: [place] [address] Arik Colbert MD IMG DXA PROCEDURES Final Result * Screening Mammogram Bilateral W Sharad (11/11/2017 1:54 PM BINDER CUTTER) Anatomical Region Laterality Modality Breast Bilateral Mammography Impressions 11/11/2017 1:57 PM BINDER CUTTER BIRADS Category 2: Benign finding(s). Digital technology was employed plus computer-aided detection software (R2) was utilized in interpretation of these images. This facility utilizes a reminder system to notify patients of yearly mammograms. Electronically signed by: Pollo Loya M.D. Narrative 11/11/2017 1:57 PM BINDER CUTTER EXAMINATION: Digital screening mammogram with tomosynthesis. HISTORY: [...] Health Maintenance Insurance MEDICARE ADVANTAGE MEDICARE ADVANTAGE AET MEDICARE [facility] AETNA MEDICARE GOLD Advance Directives For more information, please contact: [phone] * Full Code (Latest Code Status on [...] 6:54 PM 08/03/2023 6:17 PM Care Teams Cloth Colors Examiner Relationship Specialty Start Date End Date Carito Agudelo MD [address] [facility] [address] [place] [address] PCP - General Family Medicine 11/24/24 Deon Corcoran MD [address] [place] [address] [address] [place] [address] Consulting Physician Pulmonary Disease 08/03/23
--- OUTSIDE RECORDS SUMMARY | 2025-01-18 09:37 | XMS_ITS ---
Author Organization [facility] Address [address] [place] [address] Care Team Providers Care Privacy Specialist Name Role Phone Melissa Rush Primary Care Provider REASON FOR VISIT Duloxetine and CKD Social History Sex Assigned At : Social History Observation Description Sex Assigned At Female Encounters Encounter Location Date Provider Diagnosis [address] [place] [address] 07/13/2024 Melissa Rush Plan Of Treatment No Information Progress Notes * Keiry BRARDOB:1950 (73 yo F)Acc No.[id number]:07/13/2024 Patient: Keiry SWEENEY :1950 A ge:73 Y S ex:Female Address:[address] [place] [address] [place], [address] Subjective: * Chief Complaints: * D uloxetine and CKD * Medical History: * Surgical History: * Hospitalization/Major Diagno stic Procedure: * Medications: Objective: * Vitals: * Physical Examination: Assessment: Plan: * Treatment: * Procedure Codes: * true * Date: Generated for Constancei cindy/Billie/eTransmitting on: 0 01/18/2025 09:37 AM CDT
--- OUTSIDE RECORDS SUMMARY | 2025-01-18 09:37 | XMS_ITS | Encounter Summary ---
Author Organization [facility] Healthcare Address [address] [place] [address] Care Team Providers Care Rn Field Name Role Phone Arik Colbert MD Primary Care Provider [phone] Deon Corcoran MD Unavailable Carito Agudelo MD Primary Care Provider Encounter Details Date Type Department Care Team ([facility] st Contact Info) Description 04/02/2024 [facility] Post Discharge Follow up phone call [facility] [address] [place] [address] Katerine Gipson RN Social History Tobacco Use Types Packs/Day [...] on file Legal Sex Female 3:20 AM BLADDER CHANGER Gender Identity Not on file Sexual Orientation Not on file documented as of this encounter Plan of Treatment Not on file documented as of this encounter Visit Diagnoses Not on filedocumented in this encounter Care Teams Rn Field Relationship Specialty Start Date End Date Arik Colbert MD PCP - General Family Practice 05/30/23 11/23/24 Carito Agudelo MD [address] [place] [address] [address] [place] [address] PCP - General Family Medicine 11/24/24 Deon Corcoran MD [address] [place] [address] [address] [place] [address] Consulting Physician Pulmonary Disease 08/03/23 documented as of this encounter
[2025-01-18 20:16] LABS: Albumin Level 4.1 g/dL (3.5-5.1); Anion Gap 11 mmol/L (4-12); Blood Urea Nitrogen 45 mg/dL (7-17); Carbon Dioxide 23 mmol/L (22-30); Chloride 104 mmol/L (98-107); Estimated Glomerular Filt Rate 25; Glucose 175 mg/dL (65-110); Phosphorus 3.9 mg/dL (2.5-4.5); Potassium 4.7 mmol/L (3.4-5.0); Sodium 138 mmol/L (137-145)
[2025-01-18 23:27] LABS: Creatinine Urine 31.4 mg/dL; Total Protein Urine Random 22 mg/dL
== END 2025-01-18 08:56 | disposition home or self-care (01) ==
LOC: ANHCATHLAB 08:57 → ANHBWCLAB 08:59
PROVIDERS: Visit Provider Internal Medicine Nephrology
DX: I12.9 Hypertensive chronic kidney disease with stage 1 through stage 4 chronic kidney disease, or unspecified chronic kidney disease (principal); N18.4 Chronic kidney disease, stage 4 (severe)
CPT/HCPCS: 36415; 80069; 82570; 84156

== ENCOUNTER 2025-04-13 09:31 | Emergency (ER) | payer MEDICARE, SELFPAY ==
--- OUTSIDE RECORDS SUMMARY | 2025-04-13 09:40 | XMS_ITS | Patient Health Record ---
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
--- OUTSIDE RECORDS SUMMARY | 2025-04-13 09:40 | XMS_ITS | Patient Health Record ---
Author Organization [facility] Address [address] [place] [address] Care Team Providers Care Night Coordinator Name Role Phone Victor ManuelMelissa mujica Primary Care Provider [phone] Allergies Allergen (clinical drug ingredient) Drug/Non Drug Allergy documented on EMR Reaction Allergy Type Onset Date Status Gastrografin Unknown Drug Allergy Acti ve Reason For Referral No Information Medications Medication SIG (Take, Route, Frequency, Duration) Notes Start Date End Date Status carBAMazepine Active HYDROcodone-Acetaminophen 5-325 MG 1 tablet as needed Orally daily Active traMADol HCl Active Gabapentin 600 MG 1 tablet Orally Once a day; Duration: 30 day(s) Active DULoxetine HCl 60 MG 1 capsule Orally tw ice a day; Duration: 30 days Active Social History Tobacco Use: Social History Observation Description Date Details (start date - stop date) Current Smoker NA - NA Sex Assigned At : Social History Observation Description Sex Assigned At Female Tobacco Control (Standard) Question Answer Notes Tobacco use: Current smoker Additional Findings: Tobacco user Moderate cigar ette smoker (10-19 cigs/day) Problems Problem Type SNOMED Code ICD Code Onset Dates Problem Status W/U Status Risk Notes Problem Depressive disorder (F32.9) Active confirmed Vital Signs Heart Rate 78 /min 03/15/2025 Temperature 98.4 degrees Fahrenheit 03/15/2025 Respiratory Rate 16 /min 03/15/2025 Blood pressure diastolic 72 mm Hg 03/15/2025 Oximetry 96 % 03/15/2025 Height 62 in in 03/15/2025 Blood pressure systolic 132 mm Hg 03/15/2025 Weight 201 lbs lbs 03/15/2025 BMI 36.76 kg/m2 03/15/2025 Encounters Encounter Location Date Provider Diagnosis [address] [place] [address] 07/13/2024 Melissa Rush Depressive disorder F32.[address] [place] [address] 08/20/2024 Melissa Rush Depressive disorder F32.[address] [place] [address] 11/18/2024 Melissa Rush Depressive disorder F32.[address] [place] [address] 02/10/2025 Melissa Rush Depressive disorder F32.[address] [place] [address] 03/15/2025 Melissa Rush Depressive disorder F32.[address] [place] [address] 07/13/2024 Melissa Rush [facility] [address], [place] [address] 02/04/2025 Melissa Rush [facility] [address], [place] [address] 03/16/2025 Melissa Rush Assessments Encounter Date Diagnosis (ICD Code) Assessment Notes Treatment Notes Treatment Clinical Notes Section Notes 07/13/2024 Depressive disorder (ICD-10 - F32.9) see TE regarding monitoring CKD with this medication. Discussed r/b/se. 08/20/2024 Depressive disorder (ICD-10 - F32.9) [place] agreement to continue current regimen. Discussed r/b/se. 11/18/2024 Depressive disorder (ICD-10 - F32.9) [place] agreement to continue current regimen. Discussed r/b/se. Continue to keep medical team informed of medications, key cutter, pain management. 02/10/2025 Depressive disorder (ICD-10 - F32.9) Increasing due to depression and anxiety. Discussed r/b/se. Continue to keep medical team informed of medications, key cutter, pain management. Client states she is due for labs soon, will review due to kidney impairment. 03/15/2025 Depressive disorder (ICD-10 - F32.9) Discussed r/b/se. Continue to keep medical team informed of medications, key cutter, pain management. Reports no changes with kidneys and had recent check-in with key cutter and is aware of increase in medication. 07/13/2024 Other Reasons, potential benefits, potential risks, interactions [...] May also contact the 24-hour crisis hotline ([facility]), refer to the closest emergency room [...] assess appearance, affect, AIMS, or vital signs. 08/20/2024 Other Reasons, potential benefits, potential risks, interactions [...] May also contact the 24-hour crisis hotline ([facility]), refer to the closest emergency room [...] assess appearance, affect, AIMS, or vital signs. 11/18/2024 Other Reasons, potential benefits, potential risks, [...] May also contact the 24-hour crisis hotline ([facility]), refer to the closest emergency room [...] assess appearance, affect, AIMS, or vital signs. 02/10/2025 Other Reasons, potential benefits, potential risks, interactions [...] May also contact the 24-hour crisis hotline ([facility]), refer to the closest emergency room [...] assess appearance, affect, AIMS, or vital signs. 03/15/2025 Other Reasons, potential benefits, potential risks, interactions [...] May also contact the 24-hour crisis hotline ([facility]), refer to the closest emergency room [...] of education, treatment plan and follow up. Plan Of Treatment No Information Insurance Providers Payer Name Payer Address Payer Phone Subscriber Number Group Number Insured Name Patient Relationship to Insured Coverage Start Date Coverage End Date A[employer] Medicare [address] [place] [phone] [id number] Keiry Brar Self - patient is the insured Medical (General) History Medical History History ICD Code depression anxiety hypertension arthritis CKD IV Surgical History Surgery Date(Month/Year) tonsillectomy and adenoidectomy appendectomy hysterectomy section Hospitalization History Reason Date(Month/Year) surgeries childbirth [facility]
--- OUTSIDE RECORDS SUMMARY | 2025-04-13 09:40 | XMS_ITS | Continuity of Care Document ---
Author Organization [facility] Address [address] [facility] [address] [facility] [address] [place] [address] Phone Care Team Providers Care Weight Shifter Name Role Phone Mao Carrera OD Unavailable Unavailable Allergies, Adverse Reactions, Alerts Substance Reaction Status Criticality Sulfa (Sulfonamide Antibiotics) Active No Information Medications Medication Instructions Dosage Effective Dates (start - stop) Status Comments losartan 100 mg tablet take 1 tablet by oral route every day 100 MG - Active buspirone 15 mg tablet take 1 tablet by oral route 2 times every day 15 MG - Active tramadol 50 mg tablet take 1 tablet by o ral route every 6 hours as needed 50 MG - Active oxybutynin chloride ER 10 mg tablet,extended release 24 hr take 1 tablet by oral route every day 10 MG - Active Procedures Procedure Date No Charge Refraction Eye Exam, New Patient Advance Directives Directive Yes / No Effective Date File Name No Information Encounters Encounter Description Practice Location Reason(s) For Visit Diagnoses Date Provider Providers Copied on Encounter [facility], [address], [place], [place], [id number], [place] tel:[phone] SEC Syed BARR Professional Complete Exam (chief complaint) Nuclear sclerotic cataract of both eyesVitreous degeneration and detachment of both eyesOcular migraine 9 Debi Cavanaugh. [facility], [address] [place] [address], [place], [address], [place]. tel:[phone] Referring Provider: Mao Story, [facility] [address] [facility], [place], [address]. tel:[phone] [facility], [address], [place], [place], [address], [place] tel:[phone] SEC Syed BARR Professional No Information [address] [facility], [address] Floor, [place], [address], [place]. tel:[phone] Family History Family Member Type Diagnosis Age At Onset Problem (finding) Family history of Diabe caesar mellitus Payers Payer name Insurance type Covered constitution party ID Authoralondra mckee(s) [employer] [place] [id number] Social History Type Description Quantity Date Captured [...]
[2025-04-13 09:41] VITALS: BP 94/68; PULSE 89; RESP 16; TEMP 36.3; O2SAT 97
--- OUTSIDE RECORDS SUMMARY | 2025-04-13 09:41 | XMS_ITS | Patient Health Record ---
Author Organization [facility] Address [address] [place] [address] Care Team Providers Care Ammunition Assembly I Laborer Name Role Phone Felicia Haley Primary Care Provider Unav ailable Ruiz Holloway Unavailable [phone] Allergies Allergen (clinical drug ingredient) Drug/Non Drug Allergy documented on EMR Reaction Allergy Type Onset Date Status ct scan dye (uncoded) Unknown Allergy Active Reason For Referral No Information Medications Medication SIG (Take, Route, Frequency, Duration) Notes Start Date End Date Status DULoxetine HCl 30 MG Capsule Delayed Release Particles 1 capsule Orally Once a day Active DULoxetine HCl 60 MG Capsule Delayed Release Particles 1 capsule Orally Once a day Active Omeprazole 20 MG Capsule Delayed Release 1 capsule 30 minutes before morning meal Orally Once a day Active Aspirin Adult Low Dose 81 MG Tablet Delayed Release 1 tablet Orally Once a day Active Atorvastatin Calcium 40 MG Tablet 1 tablet Orally Once a day Active Bengay prn Active Calcitriol 0.25 MCG Capsule 1 capsule Orally Three times a Week; Duration: 90 days Active Carvedilol 25 MG Tablet 1 tablet with fo od Orally Twice a day; Duration: 14 days Active Multivitamin - Tablet 1 tablet Orally On ce a day Active tiZANidine HCl 4 MG Tablet 1 tablet as needed Orally prn Active Gabapentin 300 MG Capsule 1 capsule Oral ly twice a day Active Hydrocodone Bitartrate Active Teriparatide 620 MCG/2.48ML Solution Pen-injector 0.08 mL Subcutaneous Once a day Active traMADol HCl 50 MG Tablet 1 tablet as ne eded Orally twice a day Active Acetaminophen 325 MG Tablet 1 tablet as needed Orally every 6 hrs Not-Taking Social History Tobacco Use: Social History Observation Description Date Details (start date - stop date) Former Smoker NA - NA Sex Assigned At : Social History Observation Description Sex Assigned At Female Social History Tobacco Use: Social Info Question Answer Notes Tobacco Use/Smoking Tobacco use: former smoker Problems Problem Type SNOMED Code ICD Code Onset Dates Problem Status W/U Status Risk Notes Problem Chronic pain (53490770) Other chronic pain (G89.29) Active confirmed Problem Chronic kidney disease stage 3B (disorder) (758941305) Stage 3b chronic kidney disease (N18.32) Active confirmed Problem Chronic kidney disease due to hypertension (117695880454643) Benign hypertensive kidney disease with chronic kidney disease stage I through stage IV, or unspecified (I12.9) Active confirmed Problem Neuropathy (838578157) Neuropathy (G62.9) Active confirmed Problem Chronic kidney disease stage 4 (967140533) CKD (chronic kidney disease) stage 4, GFR 15-29 ml/min (N18.4) Active confirmed Problem Hyperparathyroidism (95127875) Hyperparathyroidism (E21.3) Active confirmed Plan Of Treatment Future Test Test Name Order Date Immunoelectrophoresis-serum 10/31/2022 Immunoelectrophoresis-urine 10/31/2022 CBC With Differential/Platelet 3 PTH, Intact 05/07/2023 Vitamin D, 25-Hydroxy 05/07/2023 Renal Panel (10) 05/07/2023 Urine Protein/Creatinine Ratio 3 Insurance Providers Payer Name Payer Address Payer Phone Subscriber Number Group Number Insured Name Patient Relationship to Insured Coverage Start Date Coverage End Date [employer] [address] [place] [address] [id number] Keiry Brar Self - patient is the insured Medical (General) History Medical History History ICD Code CKD Stage 4, severe hpertensive chronic kidney d isease with stage 1through 4 chronic kidney disease, or unspecified chronic kidney disease CKD stage G3b/A1 pulmonary emphysema, unspecified emphyse ma type panlobular emphysema osteoarthritis osteoporosis
--- OUTSIDE RECORDS SUMMARY | 2025-04-13 09:41 | XMS_ITS | Encounter Summary ---
Author Organization [facility] Healthcare Address [address] [place] [address] Care Team Providers Care Heating Mechanic Name Role Phone Arik Colbert MD Primary Care Provider [phone] Deon Corcoran MD Unavailable Carito Agudelo MD Primary Care Provider Encounter Details Date Type Department Care Team ([facility] st Contact Info) Description 04/02/2024 [facility] Post Discharge Follow up phone call [facility] [address] [place] [address] Katerine Gipson RN Social History Tobacco Use [...] on file Legal Sex Female 3:20 AM CRTTS Gender Identity Female 04/13/2025 4:35 AM CDT Sexual Orientation Not on file documented as of this encounter Plan of Treatment Not on file documented as of this encounter Visit Diagnoses Not on filedocumented in this encounter Care Teams Heating Mechanic Relationship Specialty Start Date End Date Arik Colbert MD PCP - General Family Practice 05/30/23 11/23/24 Carito Agudelo MD [address] [facility] [address] [place] [address] PCP - General Family Medicine 11/24/24 Deon Corcoran MD [address] [facility] [address] [place] [address] Consulting Physician Pulmonary Disease 08/03/23 documented as of this encounter
--- OUTSIDE RECORDS SUMMARY | 2025-04-13 09:41 | XMS_ITS | Encounter Summary ---
Author Organization [facility] Address [address] [place] [address] Phone Care Team Providers Care Assistant Technician Name Role Phone Deon Corcoran MD Unavailable Carito Agudelo MD Primary Care Provider Encounter Details Date Type Department Care Team (Late st Contact Info) Description 02/01/[address] Medical Office Building [address] [place] [address] Aly Guzmán MD [address] [place] [address] Social History Tobacco Use Types Packs/Day Years [...] on file Legal Sex Female 3:20 AM CARDIAC SPECIALIST Gender Identity Female 04/13/2025 4:35 AM CDT Sexual Orientation Not on file documented as of this encounter Plan of Treatment Not on file documented as of this encounter Visit Diagnoses Not on filedocumented in this encounter Care Teams Assistant Technician Relationship Specialty Start Date End Date Carito Agudelo MD [address] [place] [address] [address] [place] [address] PCP - General Family Medicine 11/24/24 Deon Corcoran MD [address] [place] [address] [address] [place] [address] Consulting Physician Pulmonary Disease 08/03/23 documented as of this encounter
--- OUTSIDE RECORDS SUMMARY | 2025-04-13 09:41 | XMS_ITS | Referral Summary ---
Author Organization [facility] Address [address] [place] [address] Care Team Providers Care Senior Research Scientist Name Role Phone Deon Corcoran MD Unavailable Carito Agudelo MD Primary Care Provider Encounters Date Type Department Care Team Description 03/29/2025 9:00 AM CDT Infusion [facility] [address] [place] [address] [address] [place] [phone] Age-related osteoporosis without current pathological fracture (Primary Dx) 03/25/2025 Telephone [facility] [address] [place] [address] [address] [place] [phone] Darvin Dominique RN 03/24/2025 Telephone [facility] [address] [place] [address] Advanced Medicine 5th Floor [address] [phone] Omid Faria MD 03/24/2025 9:45 AM CDT Lab [address] [address] Chronic kidney disease-mineral and bone disorder (CKD-MBD); Age-related osteoporosis without current pathological fracture 03/23/2025 Orders Only [facility] [address] [place] [phone] Janelle Cuevas RN 03/11/2025 Telephone [facility] Surgery [address] Medical Office Building 1 [place] [address] Jerilyn Mackey LPN NON URGENT MEDICAL QUERY 02/18/2025 Orders Only [address] 5th [place] [address] [place] [address] Omid Faria MD Chronic kidney disease-mineral and bone disorder (CKD-MBD) (Primary Dx) 02/05/2025 8:10 AM CDT [address] [address] Age-related osteoporosis without current pathological fracture 02/04/[address] 5th [place] [address] [place] [address] Omid Faria MD 02/02/2025 Orders Only [address] Medical Office Building 2 [address] [place] [address] Kaur Harrison, ALLAN 02/01/[address] Medical Office Building [address] [place] [address] Aly Guzmán MD 01/29/[address] Medical Office Building [address] [place] [address] Aly Guzmán MD 01/29/2025 3:00 PM CDT Office Visit [address] 5th [place] [address] [place] [address] Aly Guzmán MD Age-related osteoporosis without current pathological fracture (Primary Dx) 01/29/2025 2:30 PM CDT Clinical Support [address] 5th [place] [address] [place] [address] Age-related osteoporosis without current pathological fracture (Primary Dx) 01/20/[address] Medical Office Building 2 [address] [place] [address] Aly Guzmán MD from Last 3 Months Allergies Active Allergy Reactions Criticality Noted Date Comments Iodinated Contrast Media Unknown 04/11/2021 Other Hives Medium 04/11/2021 Bed Bugs Medications DULoxetine DR (CYMBALTA) 60 mg capsuleIndicati ons:Anxiety with Depression Take 90 mg by mouth nightly Active TiZANidine (ZANAFLEX) 4 [...] Active Problems Problem Noted Date Diagnosed Date Age-related osteoporosis wit hout current pathological fracture 02/02/2025 Personal history of colonic polyps 03/18/2024 Malignant [...] of Binge Drinking Not on file 12/2023 Hunger Vital Sign Answer Date Recorded Within the past 12 months, y ou worried that your food would run out before you got the money to buy more. Never true 03/29/20 25 Within the past 12 months, t he food you bought just didn't last and you didn't have money to get more. Never true 03/29/2025 Personal Safety Answer Date Recorded Have you ever been in or are you currently in a harmful physical or emotional relationship or is someone making you feel afraid or unsafe? Denies 03/29/2025 Comments No Sex and Gender Information Value Date Recorded Sex Assigned at Not on file Legal Sex Female 3:20 AM BIOMEDICAL EQUIPMENT SUPPORT SPECIALIST Gender Identity Female 04/13/2025 4:35 AM CDT Sexual Orientation Not on file Last Filed Vital Signs Vital Sign Reading Time Taken Comments Blood Pressure 113/66 03/29/2025 10:35 AM CDT Pulse 67 03/29/2025 10:35 AM CDT Temperature 36.8 C (98.2 F) 05/14/2024 9:26 AM CDT Respiratory Rate 16 05/14/2024 9:26 AM CDT Oxygen Saturation 91% 03/29/2025 10:35 AM CDT Inhaled Oxygen Concentration - - Weight 83.9 kg (185 lb) 05/14/2024 7:46 AM CDT Height 157.5 cm (5' 2) 05/14/2024 7:46 AM CDT Body Mass Index 33.84 05/14/2024 7:46 AM CDT Plan of Treatment Not on file Procedures Procedure Name Priority Date/Time Associated Diagnosis Comments EGFR Routine 03/24/2025 9:55 AM CDT Chronic kidney disease-mineral and bone disorder (CKD-MBD) BASIC METABOLIC PANEL Routine 03/24/2025 9:55 AM CDT Chronic kidney disease-mineral and bone disorder (CKD-MBD) EGFR Routine 02/05/2025 8:17 AM CDT Age-related osteoporosis without current pathological fracture ALKALINE PHOSPHATASE, BONE SPECIFIC Routine 02/05/2025 8:17 AM CDT Age-related osteoporosis without current pathological fracture BETA-CROSSLAPS (BETA-CTX) Routine 02/05/2025 8:17 AM CDT Age-related osteoporosis without current pathological fracture VITAMIN D 25 HYDROXY Routine 02/05/2025 8:17 AM CDT Age-related osteoporosis without current pathological fracture RENAL FUNCTION PANEL Routine 02/05/2025 8:17 AM CDT Age-related osteoporosis without current pathological fracture PTH Routine 02/05/2025 8:17 AM CDT Age-related osteoporosis without current pathological fracture DEXA TBS AXIAL SKELETON BONE DENSITY 1 OR MORE SITES Schedule Routine, Read Routine (OP Routine) 01/29/2025 2:24 PM CDT Age-related osteoporosis without current pathological fracture COLONOSCOPY 05/14/2024 7:48 AM CDT SCREENING MAMMOGRAM BILATERAL W LUCAS Schedule Routine, Read Routine (OP Routine) 11/11/2017 1:54 PM BIOMEDICAL EQUIPMENT SUPPORT SPECIALIST Screening breast examination from Last 3 Months or Most Recently Relevant to Health Maintenance Results * (ABNORMAL) eGFR (03/24/2025 9:55 AM CDT) eGFR 29(L) >=60 mL/min/1. 73 m2 Comment: Interpretive Data Reference Interval Normal >/= 90 mL/min/1.73m2 Mildly decreased* 60 - 89 mL/min/1.73m2 Mildly to moderately decreased 45 - 59 mL/min/1.73m2 Moderately to severely decreased 30 - 44 mL/min/1.73m2 Severely decreased 15 - 29 mL/min/1.73m2 Kidney Failure < 15 mL/min/1.73m2 *Relative to young adult level Estimated glomerular filtration rate is determined by the 2020 CKD-EPI equation recommended by the National Kidney Foundation (A Unifying Approach to GFR Estimation: Recommendations of the NKF-ASK Task Force on Reassessing the Inclusion of Race in Diagnosing Kidney Disease, JASN 2020). The CKD-EPI equation should not be used for patients with unstable renal function and has not been validated in children and those over 70. Current interpretive data was last reviewed 2021. Blood 03/24/2025 9:55 AM CDT 03/24/2025 10:33 AM CDT us Omid Faria MD LAB BLOOD ORDERABLES Final Resul t [facility] ([place]) [address] [facility] Department [place] [address] * (ABNORMAL) Basic metabolic panel (03/24/2025 9:55 AM CDT) Sodium 138 135 - 145 mmol/L Potassium, pl 4.6 3.3 - 4.9 mmol/L [facility] ([place]) Chloride 102 97 - 110 mmol/L [facility] ([place]) CO2 25 22 - 32 mmol/L [facility] ([place]) Anion gap 12 2 - 15 mmol/L [facility] ([place]) BUN 39(H) 6 - 25 mg/dL [facility] ([place]) Creatinine 1.83(H) 0.60 - 1.10 mg/dL [facility] ([place]) Glucose 139 70 - 199 mg/dL [facility] ([place]) Comment: Interpretive Data Fasting glucose >/= 126 mg/dl is diagnostic for diabetes. Fasting is defined as no caloric intake for at least 8 hours. Fasting glucose between 100 mg/dl to 125 mg/dl is diagnostic of prediabetes. In a patient with classic symptoms of hyperglycemia or hyperglycemic crisis, a random glucose >/= 200 mg/dl is diagnostic for diabetes. In the absence of unequivocal hyperglycemia, results should be confirmed by repeat testing. The classification and Diagnosis of Diabetes Diabetes Care 202; 46: S19-S40. Current interpretive data was last revised 2022. Calcium 10.3 8.5 - 10.3 mg/dL [facility] ([place]) Blood 03/24/2025 9:55 AM CDT 03/24/2025 10:33 AM CDT Narrative [facility] ([place]) - 03/24/2025 11:07 AM CDT THIS TEST TO BE DONE ONE WEEK AFTER RECLAST INFUSION. us Omid Faria MD LAB BLOOD ORDERABLES Final Resul t [facility] ([place]) [address] [facility] Department [place] [address] * (ABNORMAL) eGFR (02/05/2025 8:17 AM CDT) eGFR 24(L) >=60 mL/min/1. 73 m2 Comment: Interpretive Data Reference Interval Normal >/= 90 mL/min/1.73m2 Mildly decreased* 60 - 89 mL/min/1.73m2 Mildly to moderately decreased 45 - 59 mL/min/1.73m2 Moderately to severely decreased 30 - 44 mL/min/1.73m2 Severely decreased 15 - 29 mL/min/1.73m2 Kidney Failure < 15 mL/min/1.73m2 *Relative to young adult level Estimated glomerular filtration rate is determined by the 2020 CKD-EPI equation recommended by the National Kidney Foundation (A Unifying Approach to GFR Estimation: Recommendations of the NKF-ASK Task Force on Reassessing the Inclusion of Race in Diagnosing Kidney Disease, JASN 2020). The CKD-EPI equation should not be used for patients with unstable renal function and has not been validated in children and those over 70. Current interpretive data was last reviewed 2021. Blood 02/05/2025 8:17 AM CDT 02/05/2025 8:37 AM CDT Omid Faria MD LAB BLOOD ORDERABLES Final Resul t Performing Organization Address [facility] de Phone Number [facility] ([place]) [address] [place] [address] [place] [address] * Beta-CrossLaps (Beta-CTx) (02/05/2025 8:17 AM CDT) Beta-CTx 913 pg/mL Comment: Interpretive Data Female: Premenopausal: 136 - 689 pg/mL Postmenopausal: 177 - 1015 pg/mL Male: 30 - 50 years: 131 - 670 pg/mL 51 - 70 years: 171 - 1060 pg/mL > 70 years: 152 - 858 pg/mL Current interpretive data was last revised on 2024. Testing performed by: [facility], [address] [place]., [address] Blood 02/05/2025 8:17 AM CDT 02/05/2025 12:03 PM CDT Omid Faria MD LAB BLOOD ORDERABLES Final Resul t Performing Organization Address [facility] de Phone Number [facility] ([place]) [address] [place] [address] * Alkaline phosphatase, bone specific (02/05/2025 8:17 AM CDT) Alk phos, bone 13 mcg/L [place] [facility] Comment: REFERENCE VALUE <=14 (Premenopausal) <=22 (Postmenopausal) ADDITIONAL INFORMATION Liver-derived alkaline phosphatase (ALP) increases apparent measured bone alkaline phosphatase (BAP) in this assay by 2.5 mcg/L to 5.8 mcg/L for every 100 U/L of liver ALP. Accordingly, serum specimens with significant elevations of liver ALP activity may yield artificially elevated results in the BAP assay. Test Performed by: [facility] [address] [place] [address] Social Work Msw: Fallon Moore Ph.D.; CLIA# [id number] Blood 02/05/2025 8:17 AM CDT 02/05/2025 8:37 AM CDT us Omid Faria MD LAB BLOOD ORDERABLES Final Resul t Performing Organization Address City/[facility]/ZIP Co de Phone Number [facility] ([place]) 1 [facility] [place] [address] [place] ref [facility] * Vitamin D 25 hydroxy (02/05/2025 8:17 AM CDT) Vitamin D 25-OH 71 30 - 80 ng/mL Blood 02/05/2025 8:17 AM CDT 02/05/2025 8:37 AM CDT Omid Faria MD LAB BLOOD ORDERABLES Final Resul t Performing Organization Address [facility] Co de Phone Number [facility] ([place]) 1 [facility] [place] [address] * (ABNORMAL) PTH (02/05/2025 8:17 AM CDT) PTH 116(H) 15 - 65 pg/mL Blood 02/05/2025 8:17 AM CDT 02/05/2025 8:37 AM CDT us Omid Faria MD LAB BLOOD ORDERABLES Final Resul t Performing Organization Address City/[facility]/ZIP Co de Phone Number [facility] ([place]) [address] [facility] [place] [address] * (ABNORMAL) Renal function panel (02/05/2025 8:17 AM CDT) Sodium 139 135 - 145 mmol/L Potassium, pl 4.6 3.3 - 4.9 mmol/L [facility] ([place]) Chloride 103 97 - 110 mmol/L [facility] ([place]) CO2 22 22 - 32 mmol/L [facility] ([place]) Anion gap 14 2 - 15 mmol/L [facility] ([place]) BUN 37(H) 6 - 25 mg/dL [facility] ([place]) Creatinine 2.17(H) 0.60 - 1.10 mg/dL [facility] ([place]) Glucose 190 70 - 199 mg/dL [facility] ([place]) Comment: Interpretive Data Fasting glucose >/= 126 mg/dl is diagnostic for diabetes. Fasting is defined as no caloric intake for at least 8 hours. Fasting glucose between 100 mg/dl to 125 mg/dl is diagnostic of prediabetes. In a patient with classic symptoms of hyperglycemia or hyperglycemic crisis, a random glucose >/= 200 mg/dl is diagnostic for diabetes. In the absence of unequivocal hyperglycemia, results should be confirmed by repeat testing. The classification and Diagnosis of Diabetes Diabetes Care 2021; 46: S19-S40. Current interpretive data was last revised 2022. Calcium 10.0 8.5 - 10.3 mg/dL [facility] ([place]) Phosphorus, pl 2.7 2.3 - 4.5 mg/dL [facility] ([place]) Albumin 4.2 3.5 - 5.0 g/dL [facility] ([place]) Blood 02/05/2025 8:17 AM CDT 02/05/2025 8:37 AM CDT us Omid Faria MD LAB BLOOD ORDERABLES Final Resul t [facility] ([place]) [address] [facility] Department [place] [address] * Dexa TBS Axial Skeleton Bone Density 1 or more sites (01/29/2025 2:24 PM CDT) Anatomical Region Laterality Modality Wrist, Body N/A Radiographic Geraldine ging Narrative 01/30/2025 3:52 PM CDT Patient Name: Keiry Brar Date of : 1950 Date of scan: 01/29/2025 Bone mineral density was performed on a [employer] Discovery Densitometer. Based on machine cross-calibration and precision studies the least significant changes of this densitometer is 0.024 g/cm2 at the spine, 0.020 g/cm2 at the total proximal femur, and 0.014g/cm2 at the forearm. HISTORY: This is a 74 y.o. postmenopausal female with a history of osteoporosis. She reports that she has been smoking cigarettes. She has a 26 pack-year smoking history. She has never used smokeless tobacco. Currently on treatment with calcium and vitamin D, previously treated with alendronate (Fosamax), ibandronate (Boniva), and teriparatide (Forteo), and current complaint of back pain and neck pain. INDICATIONS: Menopause status, history of prior vertebral fracture, and history of osteoporosis. FINDINGS: BONE MINERAL DENSITY OF THE LUMBAR SPINE Bone Mineral Density (BMD) of the lumbar spine was measured from L1-L4 and the average density was calculated to be 0.854 gm/cm2. This corresponds to a T-score (standard deviations from the mean of young adults) of -1.8. There is no previous study available for comparison. BONE MINERAL DENSITY OF THE PROXIMAL FEMUR Bone Mineral Density (BMD) of the left hip total was found to be 0.709 gm/cm2. This corresponds to a T-score standard deviations from the mean of young adults of -1.9. Femoral neck is 0.548 gm/cm2 with a T-score (standard deviations from the mean of young adults) of -2.7. There is no previous study available for comparison. BONE MINERAL DENSITY OF THE FOREARM Bone Mineral density (BMD) of the left proximal 1/3 of the radius measures 0.613 gm/cm2. This corresponds to a T-score (standard deviations from the mean of young adults) of -1.3. There is no previous study available for comparison. A forearm bone density study was performed in addition to the routine study due to physician request and and chronic kidney disease . SUMMARY: Bone mineral density shows evidence of osteoporosis and marked increase risk of fracture. The lumbar spine Trabecular Bone Score is 1.109 which suggests degraded bone microarchitecture compared to the general population. Final decisions regarding diagnostic or therapeutic recommendations should include BMD, TBS, additional clinical risk factors as well the clinical context of the patient. Please see attached TBS results for further details. ADDITIONAL COMMENTS: Postmenopausal Women and Men Over 50: Diagnostic criteria: Osteoporosis: BMD at or below -2.5 T-score; Osteopenia (low bone mass): BMD between -1.0 and -2.5 T-score. If the patient has a history of a fragility fracture, a fracture that occurred with trauma equivalent to a fall from a standing position or less, then the diagnosis is osteoporosis regardless of bone density. The history and data sections of the bone mineral density scan were prepared by Asiya Earl(Porsha)(Sanam)(BD) CBDT who is accredited by the International Society of Clinical Densitometry. The overall patient assessment and scan interpretation were performed by Fadia Levine M.D. who is certified by the International Society of Clinical Densitometry. [id number] Aly Guzmán MD [facility] DXA PROCEDURES Paige l Result * Colonoscopy (05/14/2024 7:48 AM CDT) Anatomical Region Laterality Modality Other Narrative Procedure Note Mariana Mon MD - 05/14/2024 7:48 AM CDT [facility] Patient Name: Keiry Brar Procedure Date: 05/14/2024 7:48 AM Date of : 1950 Admit Type: Outpatient Age: 73 Gender: Female Attending MD: Mariana Mon M.D. Room: [facility] ENDOSCOPY ROOM 1 Note Status: Finalized Patient [...] under direct vision. The Pediatric Colonoscope [id number] was introducedthrough the anus and advanced to [...] 7:48 AM Procedure Code(s): --- Professional --- 25644, Colonoscopy, flexible; with removal of tumor(s), polyp(s), or other lesion(s) by snare technique Diagnosis Code(s): --- Professional --- K64.8, Other hemorrhoids D12.3, Benign neoplasm of transverse colon (hepatic flexure orsplenic flexure) Z09, Encounter for follow-up examination after completed treatmentfor conditions other than malignant neoplasm Z86.010, Personal history of colonic polyps K57.30, Diverticulosis of large intestine without perforation orabscess without bleeding CPT copyright 2020 [employer]. All rights reserved. The codes documented in this report are preliminary and upon ski tow operator reviewmay be revised to meet current compliance requirements. Recognized by the [place] [employer] for promoting quality in endoscopy us Mariana Mon MD ENDOSCOPY PROCEDURES Final Result * Screening Mammogram Bilateral W Lucas (11/11/2017 1:54 PM BIOMEDICAL EQUIPMENT SUPPORT SPECIALIST) Anatomical Region Laterality Modality Breast Bilateral Mammography Impressions 11/11/2017 1:57 PM BIOMEDICAL EQUIPMENT SUPPORT SPECIALIST BIRADS Category 2: Benign finding(s). Digital technology was employed plus computer-aided detection software (R2) was utilized in interpretation of these images. This facility utilizes a reminder system to notify patients of yearly mammograms. Electronically signed by: Pollo Loya M.D. Narrative 11/11/2017 1:57 PM BIOMEDICAL EQUIPMENT SUPPORT SPECIALIST EXAMINATION: Digital screening mammogram with tomosynthesis. HISTORY: [...] Most Recently Relevant to Health Maintenance Insurance [employer] MEDICARE ADVANTAGE [employer] MEDICARE GOLD Advance Directives For more information, please contact: [phone] * Full Code (Latest Code Status on [...] 6:54 PM 08/03/2023 6:17 PM Care Teams Senior Research Scientist Relationship Specialty Start Date End Date Carito Agudelo MD [address] [place] [address] [address] [place] [address] PCP - General Family Medicine 11/24/24 Deon Corcoran MD [address] [place] [address] [address] [place] [address] Consulting Physician Pulmonary Disease 08/03/23
--- OUTSIDE RECORDS SUMMARY | 2025-04-13 09:41 | XMS_ITS | Clinical Summary ---
Author Organization [facility] Address [address] [place] [address] Care Team Providers Care Ultrasonic Cleaner Name Role Phone Deon Corcoran MD Unavailable [...] Team Description 03/29/2025 9:00 AM CDT Infusion [facility] [address] [place] [address] [place] [phone] Age-related osteoporosis without current pathological fracture (Primary Dx) 03/25/2025 Telephone [facility] [address] [place] [address] [place] [phone] Darvin Dominique RN 03/24/2025 9:45 AM CDT [address] [address] Chronic kidney disease-mineral and bone disorder (CKD-MBD); Age-related osteoporosis without current pathological fracture 03/24/2025 Telephone [facility] [address] [place] [address] Medicine 5th Floor [address] [place] [phone] Omid Faria MD 03/23/2025 Orders Only [facility] [address] [place] [phone] Janelle Cuevas RN 03/11/2025 Telephone [facility] Surgery [address] [facility] [address] Medical Office Building [address] [place] [phone] Jerilyn Mackey LPN NON URGENT MEDICAL QUERY 02/18/2025 Orders Only [address] 5th [place] [address] [place] [address] Omid Faria MD Chronic kidney disease-mineral and bone disorder (CKD-MBD) (Primary Dx) 02/05/2025 8:10 AM CDT [address] [phone] Age-related osteoporosis without current pathological fracture 02/04/[address] 5th [place] [address] [place] [address] Omid Faria MD 02/02/2025 Orders Only [address] Medical Office Building 2 [address] [place] [address] Kaur Harrison, ALLAN 02/01/[address] Medical Office Building [address] [place] [address] Aly Guzmán MD 01/29/2025 3:00 PM CDT Office Visit [address] 5th [place] [address] [place] [address] Aly Guzmán MD Age-related osteoporosis without current pathological fracture (Primary Dx) 01/29/2025 2:30 PM CDT Clinical Support [address] 5th [place] [address] [place] [address] Age-related osteoporosis without current pathological fracture (Primary Dx) 01/29/[address] Medical Office Building 2 [address] [place] [phone] Aly Guzmán MD 01/20/2025 Telephone [facility] [address] [facility] Office Building 2 [address] [place] [phone] Aly Guzmán MD from Last 3 Months Surgical History Surgery [...] of colon (HCC) 03/16/2024 Colon cancer (HCC) Age-related osteoporosis without current patholo gical fracture 02/02/2025 Family History Medical History Relation Name Comments [...] on file Legal Sex Female 3:20 AM CRITICAL POWER TECHNICIAN Gender Identity Female 04/13/2025 4:35 AM CDT Sexual Orientation Not on file Obstetrics History [...] 07/11/2022, 021 Fall Risk Assessment 12/10/2024 12/10/2023 Influenza Vaccine (#1) 2025 Osteoporosis Screening-Bone Density Scan 01/29/2027 01/29/2025, 06/05/2023, 08/06/2022, Additional history exists Colon Cancer Screening-Colonoscopy [...] Read Routine (OP Routine) 11/11/2017 1:54 PM CRITICAL POWER TECHNICIAN Screening breast examination from Last 3 Months [...] MD LAB BLOOD ORDERABLES Final Resul t [facility] ([place]) 1 [facility] Department [place] [address] * (ABNORMAL) Basic metabolic panel (03/24/2025 9:55 AM CDT) Pathologist [facility] Sodium 138 135 - 145 mmol/L Potassium, pl 4.6 3.3 - 4.9 mmol/L [facility] ([place]) Chloride 102 97 - 110 mmol/L [facility] ([place]) CO2 25 22 - 32 mmol/L [facility]) Anion gap 12 2 - 15 mmol/L [facility] ([place]) BUN 39(H) 6 - 25 mg/dL [facility] ([place]) Creatinine 1.83(H) 0.60 - 1.10 mg/dL [facility] ([place] Glucose 139 70 - 199 mg/dL [facility] ([place]) Comment: Interpretive Data Fasting glucose >/= [...] BLOOD ORDERABLES Final Resul t [facility] ([place]) 1 [facility] [place] [address] * (ABNORMAL) eGFR (02/05/2025 8:17 AM CDT) [...] ORDERABLES Final Resul t Performing Organization Address [facility] de Phone Number [facility] ([place]) [address] [place] [address] [place] [address] * Beta-CrossLaps (Beta-CTx) (02/05/2025 8:17 AM CDT) Beta-CTx 913 pg/mL Comment: Interpretive Data Female: Premenopausal: 136 - 689 pg/mL Postmenopausal: 177 - 1015 pg/mL Male: 30 - 50 years: 131 - 670 pg/mL 51 - 70 years: 171 - 1060 pg/mL > 70 years: 152 - 858 pg/mL Current interpretive data was last revised on 2024. Testing performed by: [facility], [address] [place]., [address] Blood 02/05/2025 8:17 AM CDT 02/05/2025 12:03 PM CDT Omid Faria MD LAB BLOOD ORDERABLES Final Resul t Performing Organization Address [facility] de Phone Number [facility] ([place]) [address] [place] [address] [place] [address] * Alkaline phosphatase, bone specific (02/05/2025 8:17 AM CDT) Alk phos, bone 13 mcg/L [facility] Comment: REFERENCE VALUE <=14 (Premenopausal) <=22 (Postmenopausal) ADDITIONAL INFORMATION Liver-derived alkaline phosphatase (ALP) increases apparent measured bone alkaline phosphatase (BAP) in this assay by 2.5 mcg/L to 5.8 mcg/L for every 100 U/L of liver ALP. Accordingly, serum specimens with significant elevations of liver ALP activity may yield artificially elevated results in the BAP assay. Test Performed by: [facility] [address] [place] [address] Cnc Set Up Operator: Fallon Moore Ph.D.; CLIA# [id number] Blood 02/05/2025 8:17 AM CDT 02/05/2025 8:37 AM CDT us Omid Faria MD LAB BLOOD ORDERABLES Final Resul t Performing Organization Address City/[facility]/ZIP Co de Phone Number [facility] ([place]) [address] [facility] [place] [address] [facility] * Vitamin D 25 hydroxy (02/05/2025 8:17 AM CDT) Vitamin D 25-OH 71 30 - 80 ng/mL Blood 02/05/2025 8:17 AM CDT 02/05/2025 8:37 AM CDT Omid Faria MD LAB BLOOD ORDERABLES Final Resul t Performing Organization Address [facility] Co de Phone Number [facility] ([place]) 1 [facility] [place] [place] [address] * (ABNORMAL) PTH (02/05/2025 8:17 AM CDT) PTH 116(H) 15 - 65 pg/mL Blood 02/05/2025 8:17 AM CDT 02/05/2025 8:37 AM CDT us Omid Faria MD LAB BLOOD ORDERABLES Final Resul t Performing Organization Address City/[facility]/ZIP Co de Phone Number [facility] ([place]) 1 [facility] [place] [place] [address] * (ABNORMAL) Renal function panel (02/05/2025 8:17 AM CDT) Sodium 139 135 - 145 mmol/L Potassium, pl 4.6 3.3 - 4.9 mmol/L [facility] ([place]) Chloride 103 97 - 110 mmol/L [facility]) CO2 22 22 - 32 mmol/L [facility] ([place]) Anion gap 14 2 - 15 mmol/L [facility] BUN 37(H) 6 - 25 mg/dL [facility] ([place]) Creatinine 2.17(H) 0.60 - 1.10 mg/dL [facility] ([place]) Glucose 190 70 - 199 mg/dL [facility] ([place] Comment: Interpretive Data Fasting glucose [...] 2022. Calcium 10.0 8.5 - 10.3 mg/dL [facility] ([place]) Phosphorus, pl 2.7 2.3 - 4.5 mg/dL [facility] ([place]) Albumin 4.2 3.5 - 5.0 g/dL [facility] ([place]) Blood 02/05/2025 8:17 AM CDT 02/05/2025 8:37 AM CDT us Omid Faria MD LAB BLOOD ORDERABLES Final Resul t [facility] ([place]) 1 [facility] Department [place] [address] * Dexa TBS Axial Skeleton Bone Density 1 or more sites (01/29/2025 2:24 PM CDT) Anatomical Region Laterality Modality Wrist, Body N/A Radiographic Geraldine ging Narrative 01/30/2025 3:52 PM CDT Patient Name: Keiry Brar Date of : 1950 Date of scan: 01/29/2025 Bone mineral density was performed on a [employer] Discovery Densitometer. Based on machine cross-calibration and [...] by the International Society of Clinical Densitometry. [id number] Aly Guzmán MD [facility] DXA PROCEDURES Paige l Result * Colonoscopy (05/14/2024 7:48 AM CDT) Anatomical Region Laterality Modality Other Narrative Procedure Note Mariana Mon MD - 05/14/2024 7:48 AM CDT [facility] Patient Name: Keiry Brar Procedure Date: 05/14/2024 7:48 AM Date of : 1950 Admit Type: Outpatient Age: 73 Gender: Female Attending MD: Mariana Mon M.D. Room: [facility] ENDOSCOPY ROOM 1 Note Status: Finalized [...] under direct vision. The Pediatric Colonoscope [id number] was introducedthrough the anus and advanced to [...] 7:48 AM Procedure Code(s): --- Professional --- 21378, Colonoscopy, flexible; with removal of tumor(s), polyp(s), or other lesion(s) by snare technique Diagnosis Code(s): --- Professional --- K64.8, Other hemorrhoids D12.3, Benign neoplasm of transverse colon (hepatic flexure orsplenic flexure) Z09, Encounter for follow-up examination after completed treatmentfor conditions other than malignant neoplasm Z86.010, Personal history of colonic polyps K57.30, Diverticulosis of large intestine without perforation orabscess without bleeding CPT copyright 2020 [employer]. All rights reserved. The codes documented in this report are preliminary and upon director check reviewmay be revised to meet current compliance requirements. Recognized by the [employer] for promoting quality in endoscopy us Mariana Mon MD ENDOSCOPY PROCEDURES Final Result * Screening Mammogram Bilateral W Lucas (11/11/2017 1:54 PM CRITICAL POWER TECHNICIAN) Anatomical Region Laterality Modality Breast Bilateral Mammography Impressions 11/11/2017 1:57 PM CRITICAL POWER TECHNICIAN BIRADS Category 2: Benign finding(s). Digital technology was employed plus computer-aided detection software (R2) was utilized in interpretation of these images. This facility utilizes a reminder system to notify patients of yearly mammograms. Electronically signed by: Pollo Loya M.D. Narrative 11/11/2017 1:57 PM CRITICAL POWER TECHNICIAN EXAMINATION: Digital screening mammogram with tomosynthesis. HISTORY: [...] Most Recently Relevant to Health Maintenance Insurance [facility] MEDICARE ADVANTAGE [employer] MEDICARE GOLD Advance Directives For more information, please contact: [phone] * Full Code (Latest Code Status on [...] 6:54 PM 08/03/2023 6:17 PM Care Teams Ultrasonic Cleaner Relationship Specialty Start Date End Date Carito Agudelo MD [address] [place] [address] [address] [place] [address] PCP - General Family Medicine 11/24/24 Deon Corcoran MD [address] [place] [address] [address] [place] [address] Consulting Physician Pulmonary Disease 08/03/23
--- OUTSIDE RECORDS SUMMARY | 2025-04-13 09:41 | XMS_ITS ---
Author Organization Corporate Office Address [address] [place] [address] [address] [place] [address] Care Team Providers Care Architectural Examiner Name Role Phone Felicia Ann CNP Primary Care Provider [phone] Felicia Novak Unavailable Unavailable Johann Langston MD [phone] Social History Sex Assigned At : Social History Observation Description Sex Assigned At Female Encounters Encounter Location Date Provider Diagnosis [address] [place] [address] for [facility] Medicine [address] [place], [place] [id number] 06/04/2024 Johann Langston Plan Of Treatment No Information Progress Notes * Keiry BRAR NDOB:[birth year] (73 yo F)Acc No.[id number]:06/04/2024 Patient: Jena Keiry ZAMORA :1950 A ge:73 Y S ex:Female Address:[address] [facility], [address], [place], [address] * true * Date: Generated for Printi ng/Faxing/eTransmitting on: 0 04/13/2025 10:40 AM EDT
--- OUTSIDE RECORDS SUMMARY | 2025-04-13 09:41 | XMS_ITS | Data Portability ---
Author Organization [facility] Amy Cohen Address [address] [place] [address] Care Team Providers Care Bin Tripper Operator Name Role Phone ALMA GRISELDA Primary Care Provider SERENE GONZÁLES Central Communications Specialist JERRY HULL Orthopedic Surgeon THOMAS MARIN Carding Utility Tender [phone] LIANNE MORSE Pain Management Assessment No assessment recorded. Plan of Treatment Reminders Order Date Submit Date Provider Last Modified By Organization Details Last Modified Time Details Appointments None recorded. Lab None recorded. Referral None recorded. Procedures None recorded. Surgeries None recorded. Imaging None recorded. Medication Orders fluticasone propionate 50 mcg/actuati on nasal spray,suspe nsion 2024 025 YR.[facility] #[id number], [address] [place], [place], [id number], 12:27:16 omeprazole 20 mg capsule,del ayed release 2024 025 RIANA Daric #[id number], [address], [place], [id number], 12:27:14 Patient TargetsNo targets recorded. Patient Instructions Encounter Date Encounter Id Patient Instructions Last Modified By Organization Details Last Modified Time 08/06/2024 [id number] Quitting Tobacco : Care Instructions rgriffon Not [...] Velasco MD Not available 08/06/2024 10:07:58 10/27/2024 [id number] seasonal allergi es: care instructions rgriffon Not [...] Guanako Velasco MD Not available 10/27/2024 12:56:55 01/07/2025 [id number] advance care planning: care instructions rgriffon Not available 01/07/2025 12:41:15 preventing falls : care instructions rgriffon Not available 01/07/2025 12:41:15 Quitting Tobacco : Care Instructions rgriffon Not available 01/07/2025 12:41:15 Medicare [facility] [facility] Preventive Checklist rgriffon Not available 01/07/2025 12:41:14 eating healthy foods: care instructions rgriffon Not available 01/07/2025 12:41:15 AD8 Dementia Screening Interview rgriffon Not available 01/07/2025 12:41:15 Attending Vadim Tellez I did not personally see or examine the patient with the resident. I was physically present to provide indirect supervision through entire encounter. I have reviewed the documentation and agree with the history, physical findings, work-up, and medical decision making as recorded. Lady Odell MD mmetias Not available 01/07/2025 13:29:11 Reason for Referral None Reported. Results Created Date Observation Date Name Description Value Unit Range Abnormal Flag Note LastModifiedBy Organization Detail LastModifiedTime Result Notes None recorded. Problems Name Problem SNOMED Code Status Onset Date Resolution Date Notes Provider Name and Address Organization Details Recorded Time Obesity 520090876 Active 2023 GRISELDA MARQUEZ MD Attn: Elizabeth meyers,[address] [place] [address], [place], [address], [facility] 4 09:29:25 Osteoporosis 01447182 Active 2023 Follows with endocrin ology. GRISELDA MARQUEZ MD Attn: Elizabeth meyers,[address] [place] [address], [place], [address], [place] [facility] 5 12:06:43 Osteoporotic fracture Active 2023 GRISELDA MARQUEZ MD Attn: Dulceherrera meyers,[address] [facility], [place], [address], [facility] 4 09:39:57 Gastroesopha geal reflux disease 196146169 Active 2023 GRISELDA MARQUEZ MD Attn: Elizabeth meyers,[address] [facility], [place], [address], [facility] 4 09:42:38 Neuropathy 644801905 Active 2023 GRISELDA MARQUEZ MD Attn: Dulceherrera meyers,[address] [facility], [place], [address], [place] [facility] 4 10:50:23 Chronic kidney disease 898550978 Active 2023 Follows with nephrolo gy. 09/17- Cr 2.20, BUN 42, GFR 22 GRISELDA MARQUEZ MD Attn: Elizabeth meyers,[address] [place] [address], [place], [address], [place] [facility] 4 23:35:22 Problem Notes None recorded. Procedures Surgical History Date Name Laterality Status Provider Name and Address Organization Details Recorded Time colonoscopy completed Rachel Traylor [place] [facility] 08/06/2024 09:00:42 transposition of ulnar nerve at elbow completed GRISELDA MARQUEZ MD Attn: Accounting,[address] , [place], [address], [facility] 08/06/2024 09:36:02 Appendectomy completed Nicole Borrero [facility] 01/07/2025 13:28:00 tonsillectomy completed Nicole Adair [facility] 01/07/2025 13:28:19 section completed Nicole Galo humberto [facility] 01/07/2025 13:28:34 hysterectomy completed Nicole Borrero [facility] 01/07/2025 13:28:48 Imaging Results None recorded. Procedure Notes None recorded. Medical Equipment None Reported. Allergies Allergen ID Allergen Name Allergen Category Reaction Reaction Severity Criticality Documentation Date Start Date Code Code System Note Provider Name and Address Organization Details Recorded Time 415975 Ozempic medicatio n nausea severe Not available 08/06/2024 RxNorm Rachel Traylor MA [facility], [facility] 4 08:58:49 246411 Iodinated contrast media (substanc e) medicatio n Not available Not available [facility] 10/29/2024 22358 2003 SNOMED Malini Roca RN [facility] 5 13:43:02 Medications Name Sig Start Date Stop Date [...] Updated DateTime 5 157.48 cm 36.1 kg/m2 94293.4 g 98.3 [degF] 84 /min 18 /min 124 mm[Hg] 80 mm[Hg] Rachel Traylor [place] [facility] 5 11:29:25 Date Recorded Body height Body mass index (BMI) Body weight Heart rate Oxygen saturation Oxygen saturation in Arterial blood by Pulse oximetry Respiratory rate Systolic blood pressure Diastolic blood pressure Provider Name and Address Organization Details Last Updated DateTime 5 157.48 cm 37 kg/m2 74224.7 1 g 70 /min 98 % 98 % 20 /min 103 mm[Hg] 70 mm[Hg] Nicole Borrero Silverio [facility] 5 11:02:55 Date Recorded Body height Body mass index (BMI) Body weight Body temperature Heart rate Respiratory rate Systolic blood pressure Diastolic blood pressure Provider Name and Address Organization Details Last Updated DateTime 4 157.48 cm 35.3 kg/m2 15713.0 3 g 98.3 [degF] 68 /min 18 /min 144 mm[Hg] 80 mm[Hg] Rachel Traylor MA [facility] 4 08:55:27 Date Recorded Systolic blood pressure Diastolic blood pressure Provider Name and Address Organization Details Last Updated DateTime 08/06/2024 104 mm[Hg] 70 mm[Hg] Teresa Marroquin Silverio [facility] 08/06/2024 10:07:44 Social History Question Answer Notes LastModified by Organizat ion Details LastModified Time Tobacco Smoking Status Current Every Day Smoker Rachel Traylor MA null, [facility] 08/06/2024 08:57:34 In The 14 Days [...] 13:30:19 Father Hypercholest erolemia jlambertma Not available 08/06 09:00:19 Maternal Grandfather Chronic renal failure lgoodema Not available 2024 13:30:07 Brother Chronic renal failure lgoodema Not available 2024 13:30:07 Brother Harmful pattern of use of alcohol lgoodema Not available 2024 13:30:26 Brother Attention [...] Vaccine Type Date Status Note Provider Nam momo and Address Organization Details Recorded Time zoster recombinant 9 completed GRISELDA MARQUEZ MD Attn: Accounting,[address] [place], [address], [place] [facility] 08/06/2024 09:27:55 Tdap 3 completed GRISELDA MARQEUZ MD Attn: Accounting,[address] , [place], [address], [place] [facility] 08/06/2024 09:27:55 Pneumococcal conjugate PCV 13 9 completed GRISELDA MARQUEZ MD Attn: Accounting,[address] [facility], [place], [address], [place] [facility] 08/06/2024 09:27:55 zoster live 9 completed GRISELDA MARQUEZ MD Attn: Accounting,[address] [facility], [place], [address], [place] [facility] 08/06/2024 09:27:55 Past Encounters Encounter ID Performer Location Encounter Start Date Encounter Closed Date Diagnosis/Indication Diagnosis SNOMED-CT Code Diagnosis ICD10 Code Diagnosis Note [id number] MD Minal Piña [address] [facility] [place] [address] 08/06/2024 08:43:45 08/27/2024 08:46:33 Obesity 145513723 E66.9 Healthy lifestyle encouraged including regular exercise of at least 150min per week, diet rich in plant based foods and low in added sugars, processed carbohydra caesar, and high salt foods. Nicotine dependence 5629 4008 F17.200 Smoking 1/2 pack per day. Discussed cessation. Osteoporosis 47172441 M8 1.0 Is following with endocrinol gregorio in [place]. Was taking teriparati de but after taking it for two years wanted to switch to q6 month injection but it is too expensive. Will follow up with her. Gastroesop hageal reflux disease 139995774 K21.9 Continue prilosec 20 mg daily. [id number] MD Minal Piña 14 IM [address] [facility] [place] [address] 10/27/2024 11:14:07 11/18/2024 13:52:45 Obesity 605528718 E66.9 Healthy lifestyle encouraged including regular exercise of at least 150min per week, diet rich in plant based foods and low in added sugars, processed carbohydra caesar, and high salt foods. Gastroesop hageal reflux disease 091938890 K21.9 Continue prilosec 20 mg daily. In the past has tried to stop but symptoms returned. Discussed GERD lifestyle modificati ons. Vaccine de clined by patient 5516383411 02 Z28.21 declines flu shot Administra tion of pneumococcal vaccine 14982983 Z23 Discussed benefit of pneumonia vaccine which we do not carry in office. Will prescribe to pharmacy. Administra tion of diphtheria, pertussis, and tetanus vaccine 210507236 Z23 Discussed benefits of updated tetanus. Unable to give in office. Will prescribe to pharmacy. Seasonal allergy 5052634 04 J30.2 Would like refill for flonase for seasonal allergies. Breast can cer screening declined 8628114165 3392155 Z53.20 Was frustrated by false pos mammo requiring breast biopsy in the past and she states she would rather do self breast exam. [id number] MD Minal FALCON 14 IM [address] [facility] [address] [place], [place] [address] [address] 01/07/2025 10:30:14 02/10/2025 13:50:12 Adult health examination 032403820 Z00.00 Health Risk Assessment collected and reviewed Positive s creening for depression on PHQ-9 (Patient Health Questionnaire 9) 8199843353 93174 Z13.31 5Reports mood is ok. She has no concerns. No SI or thoughts of self harm. Mild neuro cognitive disorder 359851097 G31.84 SLUMS 26 Breast can cer screening declined 6580485287 6323402 Z53.20 Was frustrated by false pos mammo requiring breast biopsy in the past and she states she would rather do self breast exam. Health Concerns Section Related Observation LastModified by Organization Detai ls LastModified Time None Recorded Concern Status LastModified by Organization Details LastModified Time None Recorded Advance Directives Directive None Recorded Payers Insurance Date Sequence Insurance Name Policy Number Policy Miguel Covered Member ID Miguel Member ID Guarantor Name 10/26/2024 1 [employer] (MEDICARE REPLACEMENT/AD VANTAGE - HMO) Keiry Brar [id number] Keiry Brar 10/26/2024 2 [employer] [place] - [place] ON [place] AFTER 2020 (MEDICAID REPLACEMENT - HMO) Keiry Brar [id number] Keiry Brar 10/26/2024 3 [employer] Keiry Brar [id number] Keiry Brar 02/10/2025 1 [employer] - 65+ - [place] (MEDICARE REPLACEMENT/AD VANTAGE - POS) [id number] Keiry Brar [id number] Keiry Brar 10/26/2024 2 [employer] (POS) Keiry Brar [id number] Keiry Brar 10/26/2024 1 *SELF PAY* Ch kym Brar 10/26/2024 1 [facility] (MEDICARE REPLACEMENT/AD VANTAGE - HMO) [id number] Keiry Montes Brar [id number] Keiry Brar Notes Date Note Type Note Provider Name and Address Organization Details Recorded Time 4 text/html Keiry is a 73 year old female who presents to the clinic to establish care. Was told by prior doctor that she is not welcome back. Moved from [place] a year ago. Daughter liver here. CKD-Sees nephrology, appt in September Osteoporosis- Reports back fracture a few years ago that occurred while walking her dog- Saw Dr. Hull for OA pain- Was on teripratide; is seeing endocrinology in [place]- Has appt with pain management in August Depression/Anxiety- sees Aishwarya Prediabetes- Reports was started on ozempic. Stopped due to nausea. Trigger finger- s/p surgery GERD- takes prilosec 20 mg daily Had labs a couple of months ago. Guanako Velasco MD Attn: Accounting[address] [place], [address], [place] [facility] 08/26/2024 22:13:25 5 text/html Keiry is a 73 y/o F who presents to the clinic for refill of her medications. States she has been taking 20 mg of omeprazole for reflux symptoms. Has tried to stop in the past with quick return of symptoms. Would also like flonase refilled for seasonal allergies. receiving barn custodian: Kanungoendocrinologist: Nadellapain management: Gunapunti- [place]isant Guanako Velasco MD Attn: Accounting[address] [facility], [place], [address], [place] [facility] 11/18/2024 13:04:52 5 text/html Medicare Annual Wellness VisitReported bypatient.Diet and Nutrition:healthy diet Fracture Risk:no recent explained fracture; no sudden unexplained fractures;history of fractures(compound fracture of thoracic vertebrae (pt unsure of what) in 2019) Physical Activity:exercises on a regular basis Depression Risk:never feels sad, empty, or tearful; no loss of interest in activities; no significant changes in weight; no sleep disturbances or insomnia; no agitation; no loss of energy; no feelings of worthlessness or guilt; no thoughts of suicide; no history of depression; no history of mood disorders Orientation:no disorientation to time; no disorientation to date; no disorientation to place Concentration and Memory:no decreased concentrating ability; no memory lapses or loss; does not forget words Speech/Motor difficulties:no speech difficulties; no difficulty expressing formulated concepts; no difficulty with fine manipulative tasks; no difficulty writing/copying; no slowed reaction time; does not knock things over when trying to pick them up Hearing:no loss of hearing Vision:no vision problems Activities of Daily Living:able to bathe with limited or no assistance; able to dress with limited or no assistance; able to feed self with limited or no assistance; able to get out of chair or bed with limited or no assistance; able to groom with limited or no assistance; able to toilet with limited or no assistance;unable to contol urination and bowels Instrumental Activities of Daily Living:able to do house work with limited or no assistance; able to grocery shop with limited or no assistance; able to manage medications with limited or no assistance; able to manage money with limited or no assistance; able to prepare meals with limited or no assistance; able to use the phone with limited or no assistance Falls Risk Assessment:no frequent falls while walking; no fall in the past year; no fall since last visit; no dizziness/vertigo Home Safety:no unsafe dinh hazzards; no unsafe stairs; no unsafe gas appliances; working smoke/CO detectors; use of seatbelts; no vision or hearing loss while driving;does not have hand bars in the bathroom/shower USPSTF A and B recommendationsCVD risk- AAA screening - one-time US (men who have ever smoked, age 65-75): N/A- CVD prevention - healthy diet and physical activity counseling: UTD- HTN screening: see vitals- Prediabetes, DM2 screening (ages 35-70 with overweight or obesity): N/A- Statin use for primary prevention of CVD - if 10-year CVD risk 10%+ (ages 40-75): due- Weight loss to prevent obesity-related morbidity/mortality: UTD Infection risk- STI counseling - if increased risk for infection: N/A- Syphilis screening - if increased risk for infection: N/A- HepB screening - if increased risk for infection: N/A- HepC screening - once in lifetime: UTD- HIV screening (up to age 65 + increased risk for infection): due- PrEP - if increased risk of HIV: N/A- Latent TB screening - if increased risk for infection: N/A Cancer screening- Breast cancer screening (ages 40-74) - mammo every 2 years: declines- Cervical cancer screening - co-testing every 5 years (ages 30-65): N/A- Colon cancer screening - colonoscopy vs stool-based testing (ages 45-75): due- Lung cancer screening - annual LDCT chest (ages 50-80 with 20 pack-year smoking history AND current smoking or quit within past 15 years): N/A Mental health- Depression screening: see PHQ-2/PHQ-9- Anxiety screening (under age 65): N/A Substance use- Tobacco use screening + cessation counseling: see scanned HRA- Unhealthy alcohol use screening + counseling: see scanned HRA- Unhealthy drug use screening: see scanned HRA Bone health- Fall prevention - recommend exercise (age 65+): UTD- Osteoporosis screening - DEXA (women ages 65+): UTD LADY ODELL MD Attn: Accounting[address] [place], [address], [place] [facility] 02/10/2025 11:57:23 OBGyn Episode No OBEpisode recorded.
--- OUTSIDE RECORDS SUMMARY | 2025-04-13 09:41 | XMS_ITS | Patient Health Record ---
Author Organization Corporate Office Address [address] [place] [address] [address] [place] [address] Care Team Providers Care Software Test Analyst Name Role Phone Felicia Ann CNP Primary Care Provider Felicia Novak Unavailable Unavailable Ivis LEROY, Johann Unavailable [phone] Allergies Allergen (clinical drug ingredient) Drug/Non Drug [...] Problem Status W/U Status Risk Notes Problem 297124054 Mixed hyperlipid emia (E78.2) Active confirmed Problem 143585139 Cervical spondyl osis without myelopathy (M47.812) Active confirmed Problem Hypertension (48605109) HTN (hypertension) (I10) Active confirmed Problem Osteoarthritis of knee (813471847) Knee osteoarthritis (M17.9) Active confirmed Problem Tobacco abuse (16925074) Tobacco abuse (Z72.0) Active confirmed Problem 26412141 Lumbosacral spondylosis without myelopathy (M47.817) Active confirmed Problem Osteoarthritis (897966537) Osteoarthritis (M19.90) Active confirmed Problem Pathological fracture of vertebra (941522870) Compression fracture of T12 vertebra (M48.54XA) Active confirmed Problem 08754276 Sacroiliitis, no t elsewhere classified (M46.1) Active confirmed Problem 537201665307203 Hypertensive chr onic kidney disease with stage 1 through stage 4 chronic kidney disease, or unspecified chronic kidney disease (I12.9) Active confirmed Problem Panlobular emphysema (5394374) Panlobular emphysema (J43.1) 021 Active confirmed Problem Chronic kidney disease stage 4 (784496153) Chronic kidney disease, stage 4 (severe) (N18.4) Active confirmed Problem 089937974 Morbid obesity d ue to excess calories (E66.01) Active confirmed Problem 272761508 Gastroesophageal reflux disease without esophagitis (K21.9) Active confirmed Problem Pulmonary emphysema (08577822) Pulmonary emphysema, unspecified emphysema type (J43.9) 021 Active confirmed Problem 351560977014474 Primary osteoarthritis of right knee (M17.11) Active confirmed Problem 54288081 Secondary hyperparathyroidism (N25.81) Active confirmed Problem 229151797 Itch (L29.9) Active confirmed Problem 899378755 Cigarette nicoti ne dependence in remission (F17.211) Active confirmed Problem 977856057 Stage 3 chronic kidney disease (N18.3) Active confirmed Problem 64054867 Osteoporosis, unspecified osteoporosis type, unspecified pathological fracture presence (M81.0) Active confirmed Problem 191641606 Other type of osteoarthritis, unspecified site (M19.90) Active confirmed Problem Closed fracture of thoracic vertebra without spinal cord injury (65345043) Compression fracture of T6 vertebra (S22.050A) Active confirmed Problem 907513776 Closed wedge compression fracture of T12 vertebra, initial encounter (S22.080A) Active confirmed Problem Late effect of fracture of spine AND/OR trunk without spinal cord lesion (6863104) Compression fracture of T6 vertebra, sequela (S22.050S) Active confirmed Problem Chronic kidney disease stage 3B (101355998) CKD stage G3b/A1, GFR 30-44 and albumin creatinine ratio <30 mg/g (N18.32) Active confirmed Encounters Encounter Location Date Provider Diagnosis [facility] [address] [place], [place] [id number] 06/03/2024 Johann Langston [facility] [address] [place], [place] [address] 06/04/2024 Johann Langston Plan Of Treatment Pending [...] PLAN [address] [place] [address] [id number] Keiry Brar Self - patient is the [...]
--- OUTSIDE RECORDS SUMMARY | 2025-04-13 09:41 | XMS_ITS | Encounter Summary ---
Author Organization [facility] Address [address] [place] [address] Phone Care Team Providers Care Direct Care Worker Name Role Phone Lars Salazar DO Primary Care Provider [phone] Rui Melo MD Primary Care Provider [phone] Arik Colbert MD Primary Care Provider [phone] Deon Corcoran MD Unavailable Carito Agudelo MD Primary Care Provider Encounter Details Date Type Department Care Team (Late st Contact Info) Description 12/31/2017 Orders Only [facility] ProviderJacobo MD [address] [place] [address] Social History Tobacco Use Types Packs/Day Years Used Date Smoking Tobacco: Every Day Alcohol Use Standard Drinks/Week Comments Yes 0 (1 standard drink = 0.6 oz pur e alcohol) Comments No Sex and Gender Information Value Date Recorded Sex Assigned at Not on file 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 Gender Identity Female 04/13/2025 4:35 AM CDT [...] documented as of this encounter Care Teams Direct Care Worker Relationship Specialty Start Date End Date Lars Salazar DO [address] [facility] [address] [place] [address] PCP - General 03/24/15 04/10/21 Rui Melo MD [address] [place] [address] PCP - General 04/11/21 05/29/23 Arik Colbert MD [address] [place] [address] PCP - General Family Practice 05/30/23 11/23/24 Carito Agudelo MD [address] [place] [address] [address] [place] [address] PCP - General Family Medicine 11/24/24 Deon Corcoran MD [address] [place] [address] [address] [place] [address] Consulting Physician Pulmonary Disease 08/03/23 documented as of this encounter
--- OUTSIDE RECORDS SUMMARY | 2025-04-13 09:41 | XMS_ITS ---
Author Organization Corporate Office Address [address] [place] [address] [address] [place] [address] Care Team Providers Care Template Cutter Name Role Phone Felicia Ann CNP Primary Care Provider [phone] Felicia Novak Unavailable Unavailable Johann Langston MD [phone] REASON FOR VISIT requesting call back Social History Sex Assigned At : Social History Observation Description Sex Assigned At Female Encounters Encounter Location Date Provider Diagnosis 06 [place] [facility] Medicine [address] [place], [place] [id number] 06/03/2024 Johann Langston Plan Of Treatment No Information Progress Notes * Keiry BRAR NDOB:[birth year] (73 yo F)Acc No.[id number]:06/03/2024 Patient: Jena DEANNAJENNA Keiry Montes :1950 A ge:73 Y S ex:Female Address:[address] [place] [address], [address], [place], [address] * true * Date: Generated for Printi ng/Faxing/eTransmitting on: 0 04/13/2025 10:41 AM EDT
--- OUTSIDE RECORDS SUMMARY | 2025-04-13 09:42 | XMS_ITS | Clinical Summary ---
Author Organization [facility] Address [address] [address] Phone Care Team Providers Care Cornice Upholsterer Name Role Phone Mingo Guadarrama APRN, CNP [...] Encounters Date Type Department Care Team Description 01/19/2025 6:41 AM CDT - 01/19/2025 11:59 PM CDT Hospital Encounter [facility] MRI [address] [place] [address] Sean Hull MD Discharge Disposition: Discharged to home or Selfcare 01/18/2025 Travel from Last 3 Months Immunizations Immunization Administration [...] 6:34 AM CDT Height 162.6 cm (5' 4) 04/29/2017 6:34 AM CDT Body Mass Index 36.05 04/29/2017 6:34 AM CDT Plan of Treatment Health Maintenance Due Date Last Done Comments Cologuard 1997 Immunochemical Fecal Occult Blood 1997 Mammogram 11/11/2018 11/11/2017 Zoster Immunization (3 of 3) 07/23/2019, 03/11/2019 Pneumococcal Immunization (5 0+ years) (2 of 2 - PPSV23) 03/11/2020 03/11/2019 SARS-COV-2 Immunization (1 - season) 2024 DEXA Bone Density 06/05/2025 06/05/2023, 08/06/2022, 11/11/2017 Influenza Immunization (Seas on Ended) 2025 Respiratory Syncytial Virus (RSV) Immunization (Adult) (1 - 1-dose 75+ series) 2027 Colonoscopy 05/14/2034 05/14/2024 Colorectal Cancer Screening 05/14/2034 TdaP Immunization Completed 10/14/2012 Hepatitis C Virus (HCV) Screening Completed 03/07/2016 Pneumococcal Immunization Combined Discontinued 03/11/2019 Hepatitis B Immunization Aged Out No longer eligible based on patient's age to complete this topic Human Papillomavirus (HPV) Immunization Aged Out No longer eligible based on patient's age to complete this topic Meningococcal Immunization (ACWY) Aged Out No longer eligible based on patient's age to complete this topic Rotavirus Immunization Aged Out No lo nger eligible based on patient's age to complete this topic Procedures Procedure Name Priority Date/Time Associated Diagnosis Comments MRI RIGHT SHOULDER WO CONTRAST Routine 01/19/2025 7:39 AM CDT Right shoulder pain, unspecified chronicity Unilateral primary osteoarthritis, right knee Unilateral primary osteoarthritis, left knee Other cervical disc degeneration at C6-C7 level Other cervical disc degeneration at C5-C6 level Tear of right rotator cuff, unspecified tear extent, unspecified whether traumatic HEPATITIS PANEL ACUTE (AHP) Routine 03/07/2016 7:00 AM CDT CKD (chronic kidney disease), stage III (HCC) from Last 3 Months or Most Recently Relevant to Health Maintenance Results * MRI RIGHT SHOULDER WO CONTRAST (01/19/2025 7:39 AM CDT) Anatomical Region Laterality Modality UPPER EXTREMITY, shoulder Right Magnet ic Resonance 01/20/2025 9:59 AM CDT Impressions 01/20/2025 10:02 AM CDT IMPRESSION: There is a full-thickness tear of the supraspinatus with the gap measuring 2.3 x 1.7 cm. There is additional interstitial tearing/intramuscular ganglion cyst formation of the supraspinatus extending along the inferior aspect of the musculotendinous junction over a 2 cm course. Mild tendinosis anterior infraspinatus. Moderate tendinosis superolateral subscapularis. There is fairly prominent tendinosis of the long head of the biceps tendon in the intracapsular portion. [place] appears intact. Degenerative signal superior labrum without a distinct tear. Mild osteoarthritis AC joint. Mild chondrosis inferior glenohumeral joint. Subchondral cyst formation anteroinferior glenoid. Moderate joint effusion. Narrative 01/20/2025 10:02 AM CDT EXAM DESCRIPTION: MRI RIGHT SHOULDER WO CONTRAST REASON FOR STUDY: Right shoulder pain for several months. TECHNIQUE: Multiplanar, multisequence MRI of the right shoulder was performed without contrast. COMPARISON: No prior exam. FINDINGS: Motion degrades imaging. Rotator Cuff: There is a full-thickness tear of the supraspinatus with the gap measuring 2.3 x 1.7 cm. There is additional interstitial tearing/intramuscular ganglion cyst formation of the supraspinatus extending along the inferior aspect of the musculotendinous junction. See coronal image 11 of 22 and sagittal image 6 of 22. There is mild tendinosis of the anterior infraspinatus. There is moderate tendinosis of the superolateral subscapularis. Teres minor appears intact. There is mild atrophy of the more superior infraspinatus. Biceps Tendon: The long head of the biceps tendon appears normal in the bicipital groove. There is fairly prominent tendinosis of the long head of the biceps tendon in the intracapsular portion. This is best seen on the sagittal imaging set. Motion degrades imaging particularly on the coronal views. Fluid is seen along the biceps tendon extending distal to the bicipital groove. This is likely secondary to the effusion. Labrum: Degenerative signal superior labrum without a distinct tear. Acromion and AC Joint: The coracoclavicular ligament is intact. There is ossification along the clavicular attachment. There is a markedly diminutive appearance of the coracoacromial ligament. Mild osteoarthritis AC joint. Type 1 acromion. Glenohumeral Articulation: Mild chondrosis inferiorly. Mild subchondral cyst formation anteroinferior glenoid. Bones: No acute fracture or suspicious marrow infiltration. No avascular necrosis. Joint and bursae: Moderate joint effusion. Soft Tissues: The scapular notch, and quadrilateral space are unremarkable. There is no axillary lymphadenopathy. THIS IS AN ELECTRONICALLY VERIFIED FINAL REPORT 01/20/2025 9:59 AM - Electronically signed by Malvin Barlow M.D. MJ: CASSIUS Report ID: [id number] Reading Location: [id number] Procedure Note Malvin Barlow MD - 01/20/2025 EXAM DESCRIPTION: MRI RIGHT SHOULDER WO CONTRAST REASON FOR STUDY: Right shoulder pain for several months. TECHNIQUE: Multiplanar, multisequence MRI of the right shoulder was performed without contrast. COMPARISON: No prior exam. FINDINGS: Motion degrades imaging. Rotator Cuff: There is a full-thickness tear of the supraspinatus with the gap measuring 2.3 x 1.7 cm. There is additional interstitial tearing/intramuscular ganglion cyst formation of the supraspinatus extending along the inferior aspect of the musculotendinous junction. See coronal image 11 of 22 and sagittal image 6 of 22. There is mild tendinosis of the anterior infraspinatus. There is moderate tendinosis of the superolateral subscapularis. Teres minor appears intact. There is mild atrophy of the more superior infraspinatus. Biceps Tendon: The long head of the biceps tendon appears normal in the bicipital groove. There is fairly prominent tendinosis of the long head of the biceps tendon in the intracapsular portion. This is best seen on the sagittal imaging set. Motion degrades imaging particularly on the coronal views. Fluid is seen along the biceps tendon extending distal to the bicipital groove. This is likely secondary to the effusion. Labrum: Degenerative signal superior labrum without a distinct tear. Acromion and AC Joint: The coracoclavicular ligament is intact. There is ossification along the clavicular attachment. There is a markedly diminutive appearance of the coracoacromial ligament. Mild osteoarthritis AC joint. Type 1 acromion. Glenohumeral Articulation: Mild chondrosis inferiorly. Mild subchondral cyst formation anteroinferior glenoid. Bones: No acute fracture or suspicious marrow infiltration. No avascular necrosis. Joint and bursae: Moderate joint effusion. Soft Tissues: The scapular notch, and quadrilateral space are unremarkable. There is no axillary lymphadenopathy. THIS IS AN ELECTRONICALLY VERIFIED FINAL REPORT 01/20/2025 9:59 AM - Electronically signed by Malvin Barlow M.D. MJ: CASSIUS Report ID: [id number] Reading Location: [id number] IMPRESSION: There is a full-thickness tear of the supraspinatus with the gap measuring 2.3 x 1.7 cm. There is additional interstitial tearing/intramuscular ganglion cyst formation of the supraspinatus extending along the inferior aspect of the musculotendinous junction over a 2 cm course. Mild tendinosis anterior infraspinatus. Moderate tendinosis superolateral subscapularis. There is fairly prominent tendinosis of the long head of the biceps tendon in the intracapsular portion. [place] appears intact. Degenerative signal superior labrum without a distinct tear. Mild osteoarthritis AC joint. Mild chondrosis inferior glenohumeral joint. Subchondral cyst formation anteroinferior glenoid. Moderate joint effusion. Sean Hull MD IMG MR ORDERABLES Final Result * HEPATITIS PANEL ACUTE (AHP) (03/07/2016 7:00 AM CDT) HEPATITIS A IGM ANTIBODY NON DETECTED NON DETECTED 03/07/2016 9:18 PM CDT [facility] Comment: IGM Antibodies to HAV not detected. Does not exclude early acute or recovered HAV infection. HEP B CORE AB (IGM) NON DETECTED NON DETECTED 03/07/2016 9:18 PM CDT [facility] Comment: IGM anti-HBC not detected. Does not exclude the possibility of exposure to or infection with HBV. HEPATITIS B SURFACE ANTIGEN NON DETECTED NON DETECTED 03/07/2016 9:18 PM CDT [facility] hepatitis C antibody 0.07 <1 S/CO 03/07/2016 9:18 PM T [facility] Comment: Signal/Cutoff ratio < 0.79 is Nondetected Signal/Cutoff ratio 0.80-0.99 is Grayzone Signal/Cutoff ratio > 0.99 is Detected Supplemental assays are recommended if signal/cutoff ratio is >/=1.00. Signal/cutoff ratio result >/= 5.00 is 97% predictive of positivity for recombinant immunoblot assay (RIBA) and will be reported to the [place] Department of Public Health as required. Blood specimen (specimen) Venipuncture / Unknown 03/07/2016 7:00 AM CDT 03/07/2016 10:28 AM CDT us Nikolas Colmenares MD HEMATOLOGY ORDERABLES Final Re sult [facility] [address] [place] [address] from Last 3 Months or Most Recently Relevant to Health Maintenance Insurance MEDICARE C [employer] Care Teams Cornice Upholsterer Relationship Specialty Start Date End Date Mingo Guadarrama, TOWN CLERK, SENIOR [employer]YROLL SPECIALIST [address] [place] [id number] PCP - General Certified Nurse Practitioner 10/05/16
--- OUTSIDE RECORDS SUMMARY | 2025-04-13 09:45 | XMS_ITS | Continuity of Care Document ---
Author Organization [facility] Address [address] [place] [address] Phone Care Team Providers Care Switchboard And Control Room Operator Name Role Phone Mao Carrera OD Unavailable [...] Diagnoses Date Provider Providers Copied on Encounter [facility], [address], [place], [place], [id number], [place] tel:[phone] SEC [place] Professional Complete Exam (chief complaint) Nuclear sclerotic cataract of both eyesVitreous degeneration and detachment of both eyesOcular migraine 9 Debi Cavanaugh. [address] [facility], [address] [place] [address], [place], [address], [place]. tel:[phone] Referring Provider: Mao Story, [facility] [address] [facility], [place], [address]. tel:[phone] [facility], [address], [place], [place], [id number], [place] tel:[phone] SEC Syed [place] Professional No Information 9 Debi Cavanaugh. [address] [facility], [address]th Floor, [place], [address], [place]. tel:[phone] Family History Family Member Type Diagnosis Age At Onset Problem (finding) Family history of Diabe caesar mellitus Payers Payer name Insurance type Covered democrat ID Authoralondra mckee(s) [employer] Claims HM [id number] Social History Type Description Quantity Date Captured [...]
--- NOTE | 2025-04-13 10:33 | ED_ITS ---
<Statement entered by ERICA Acevedo BC - 04/16/25 14:30> This is a duplicate note. Please see other note submitted that day HPI - General Adult General Chief complaint: Skin/Abscess/Foreign Body Stated complaint: Rash/Eye Problem Related Data Home Medications ?Medication ?Instructions ?Recorded ?Confirmed ?Last Taken ?Type aspirin 81 mg tablet,delayed 81 mg PO DAILY 05/14/23 02/16/25 Unknown History release tizanidine 4 mg tablet 4 mg PO QHS PRN 05/14/23 02/16/25 Unknown History tramadol 50 mg tablet mg PO 06/04/24 02/16/25 Unknown History duloxetine 30 mg capsule,delayed 30 mg PO DAILY 09/03/24 02/16/25 Unknown History release (Cymbalta) duloxetine 60 mg capsule,delayed 60 mg PO BID 02/16/25 02/16/25 Unknown History release (Cymbalta) hydrocodone 5 mg-acetaminophen 325 1 tablet PO QHS PRN 02/16/25 02/16/25 Unknown History mg tablet Allergies Allergy/AdvReac Type Severity Reaction Status Date / Time bee venom protein (honey bee) Allergy Unknown Verified 02/16/25 08:53 Iodinated Contrast Media AdvReac Intermediate Unknown Verified 02/16/25 08:53 [facility] Past Medical History Medical History CKD (chronic kidney disease) Newly diagnosed diabetes Low back pain Anxiety Neuropathy Smoker Hypertension Surgical History Surgical History History of Family History Family History Father Family history of hypercholesterolemia Hypertension Acute myocardial infarction Sibling Family history of hypercholesterolemia Mother Hypertension Family history of kidney disease Grandparent Family history of kidney disease Family history of Parkinson's disease Social History Social History Smoking packs per day: 0.75 Smoking cigarettes per day: 15.0 Smoking status: Current every day smoker Second hand tobacco smoke exposure: Yes Alcohol intake: never Do You Feel Safe in your Home?: Yes Lack of Transportation: No Lack of Food: Sometimes True Current Housing: I Do Not Have Housing Concerned About Future Housing: YES Difficulty Paying Gas/Electric Bills: Decline to Answer Difficulty Paying for Meds: No Currently Unemployed: No Education: Associate Degree Difficulty w/ Childcare or Family Care: No Living arrangements: with family Gender identity (if verbalized by the patient): Female Agree to blood products: No Course Course Level of Care: Express Care Visit Vital Signs Vital signs: Vital Signs Temperature 36.3 C L 04/13/25 09:41 Pulse Rate 89 04/13/25 09:41 Respiratory Rate 16 04/13/25 09:41 Blood Pressure 94/68 L 04/13/25 09:41 Pulse Oximetry 97 04/13/25 09:41 Oxygen Delivery Room Air 04/13/25 09:41 Temperature 36.3 C L 04/13/25 09:41 Pulse Rate 89 04/13/25 09:41 Respiratory Rate 16 04/13/25 09:41 Blood Pressure 94/68 L 04/13/25 09:41 Pulse Oximetry 97 04/13/25 09:41 Oxygen Delivery Room Air 04/13/25 09:41 Medical Decision Making Vital Signs Vital Signs: Vital Signs Temperature 36.3 C L 04/13/25 09:41 Pulse Rate 89 04/13/25 09:41 Respiratory Rate 16 04/13/25 09:41 Blood Pressure 94/68 L 04/13/25 09:41 Pulse Oximetry 97 04/13/25 09:41 Oxygen Delivery Room Air 04/13/25 09:41 Temperature 36.3 C L 04/13/25 09:41 Pulse Rate 89 04/13/25 09:41 Respiratory Rate 16 04/13/25 09:41 Blood Pressure 94/68 L 04/13/25 09:41 Pulse Oximetry 97 04/13/25 09:41 Oxygen Delivery Room Air 04/13/25 09:41 Discharge Plan Discharge Clinical Impression: Allergic dermatitis, Poison sumac Patient Disposition: Home Condition: Stable Instructions: Antibiotic Form, Poison Katiuska (ED) Patient Language: Nepali Prescriptions: New prednisone 20 mg tablet See Rx Instructions .ROUTE .COMPLEX Qty: 18 0RF Rx Instructions: take 2 tabs po daily x 5 days, then 1 tab po daily x 5 days, then 1/2 tab po daily x 6 days No Action aspirin 81 mg tablet,delayed release (DR/EC) 81 mg PO DAILY tizanidine 4 mg tablet 4 mg PO QHS PRN tramadol 50 mg tablet PO duloxetine [Cymbalta] 30 mg capsule,delayed release(DR/EC) 30 mg PO DAILY duloxetine [Cymbalta] 60 mg capsule,delayed release(DR/EC) 60 mg PO BID hydrocodone-acetaminophen 5-325 mg tablet 1 tablet PO QHS PRN gabapentin 300 mg capsule See Rx Instructions .ROUTE .COMPLEX Qty: 60 3RF Dose Instruction: TAKE 2 CAPSULES BY MOUTH EVERY DAY AT BEDTIME Rx Instructions: TAKE 2 CAPSULES BY MOUTH EVERY DAY AT BEDTIME omeprazole 20 mg capsule,delayed release(DR/EC) 20 mg PO DAILY Qty: 90 1RF carvedilol 25 mg tablet 25 mg PO Q12H Qty: 90 3RF Rx Instructions: must administer with a meal/food calcitriol 0.25 mcg capsule See Rx Instructions .ROUTE .COMPLEX Qty: 36 3RF Dose Instruction: TAKE 1 CAPSULE BY MOUTH 3 TIMES A WEEK Rx Instructions: TAKE 1 CAPSULE BY MOUTH 3 TIMES A WEEK atorvastatin 40 mg tablet See Rx Instructions .ROUTE .COMPLEX Qty: 90 3RF Dose Instruction: TAKE 1 TABLET BY MOUTH EVERY DAY AT BEDTIME Rx Instructions: TAKE 1 TABLET BY MOUTH EVERY DAY AT BEDTIME Follow-up/Referrals: Pascual Marroquin MD [Physician] - Time of Disposition: 10:27
--- NOTE | 2025-04-13 10:35 | ED_ITS ---
HPI - General Adult General Chief complaint: Skin/Abscess/Foreign Body Stated complaint: Rash/Eye Problem Source: patient Mode of arrival: ambulatory Limitations: no limitations History of Present Illness HPI narrative: Patient presents for evaluation of rash to her arms and face for last 2 days. She was working cutting down nelia earlier that day. She reports associated itching. She denies any difficulty breathing or swallowing. No new lotions, soaps, detergents or topical products. Related Data Home Medications ?Medication ?Instructions ?Recorded ?Confirmed ?Last Taken ?Type aspirin 81 mg tablet,delayed 81 mg PO DAILY 05/14/23 02/16/25 Unknown History release tizanidine 4 mg tablet 4 mg PO QHS PRN 05/14/23 02/16/25 Unknown History tramadol 50 mg tablet mg PO 06/04/24 02/16/25 Unknown History duloxetine 30 mg capsule,delayed 30 mg PO DAILY 09/03/24 02/16/25 Unknown History release (Cymbalta) duloxetine 60 mg capsule,delayed 60 mg PO BID 02/16/25 02/16/25 Unknown History release (Cymbalta) hydrocodone 5 mg-acetaminophen 325 1 tablet PO QHS PRN 02/16/25 02/16/25 Unknown History mg tablet Allergies Allergy/AdvReac Type Severity Reaction Status Date / Time bee venom protein (honey bee) Allergy Unknown Verified 02/16/25 08:53 Iodinated Contrast Media AdvReac Intermediate Unknown Verified 02/16/25 08:53 Review of Systems Review of Systems: CONSTITUTIONAL: Denies fever, chills, or sweats. EYES: Denies visual changes, redness, or discharge. ENT: Denies rhinorrhea, congestion, sore throat, or otalgia. CARDIOVASCULAR: Denies chest pain, palpitations, or edema. RESPIRATORY: Denies cough or dyspnea. GASTROINTESTINAL: Denies abdominal pain, nausea, vomiting, or diarrhea. GENITOURINARY: Denies dysuria or hematuria. SKIN: Reports pruritic rash to arms and face MUSCULOSKELETAL: Denies back pain, joint pain, or myalgia. NEUROLOGIC: Denies headache, numbness, dizziness, or weakness. PSYCHIATRIC: Denies anxiety or depression. [facility] Past Medical History Medical History CKD (chronic kidney disease) Newly diagnosed diabetes Low back pain Anxiety Neuropathy Smoker Hypertension Surgical History Surgical History History of Family History Family History Father Family history of hypercholesterolemia Hypertension Acute myocardial infarction Sibling Family history of hypercholesterolemia Mother Hypertension Family history of kidney disease Grandparent Family history of kidney disease Family history of Parkinson's disease Social History Social History Smoking packs per day: 0.75 Smoking cigarettes per day: 15.0 Smoking status: Current every day smoker Second hand tobacco smoke exposure: Yes Alcohol intake: never Do You Feel Safe in your Home?: Yes Lack of Transportation: No Lack of Food: Sometimes True Current Housing: I Do Not Have Housing Concerned About Future Housing: YES Difficulty Paying Gas/Electric Bills: Decline to Answer Difficulty Paying for Meds: No Currently Unemployed: No Education: Associate Degree Difficulty w/ Childcare or Family Care: No Living arrangements: with family Gender identity (if verbalized by the patient): Female Agree to blood products: No Exam Narrative: GENERAL: Well-appearing, well-nourished, and in no acute distress. HEAD: Normocephalic, atraumatic. EYES: PERRLA and EOMI. ENT: Nares clear, no rhinorrhea or epistaxis. Mucous membranes moist. Oropharynx without tonsillar hypertrophy exudate or other lesions. Bilateral TMs pearly michaels nonbulging NECK: Supple. No adenopathy or masses. No carotid bruits or JVD CHEST: Clear to auscultation. No respiratory distress. No wheezes rales or rhonchi HEART: Regular rate and rhythm. No murmur heard. Normal peripheral pulses. ABDOMEN: Soft, nontender, nondistended, normal active bowel sounds. EXTREMITIES: Normal range of motion. No edema. SKIN: There are few raised erythematous vesicles noted to the bilateral arms and face. There are several scabbed lesions to the bilateral forearms. NEURO: No focal deficits. Alert and oriented x3. PSYCH: Normal mood and affect. Course Course Emergency Course: This is a 74-year-old female presented for evaluation of a pruritic rash to face and arms after cutting down nelia. Her exam is consistent with poison sumac dermatitis(states she did not see poison katiuska specifically). She should follow- up with her primary care provider. I will discharge her with prednisone. Use calamine lotion. Go to the ER for worsening symptoms. Patient in agreement with plan of care. Level of Care: Express Care Visit Vital Signs Vital signs: Vital Signs Temperature 36.3 C L 04/13/25 09:41 Pulse Rate 89 04/13/25 09:41 Respiratory Rate 16 04/13/25 09:41 Blood Pressure 94/68 L 04/13/25 09:41 Pulse Oximetry 97 04/13/25 09:41 Oxygen Delivery Room Air 04/13/25 09:41 Temperature 36.3 C L 04/13/25 09:41 Pulse Rate 89 04/13/25 09:41 Respiratory Rate 16 04/13/25 09:41 Blood Pressure 94/68 L 04/13/25 09:41 Pulse Oximetry 97 04/13/25 09:41 Oxygen Delivery Room Air 04/13/25 09:41 Medical Decision Making Vital Signs Vital Signs: Vital Signs Temperature 36.3 C L 04/13/25 09:41 Pulse Rate 89 04/13/25 09:41 Respiratory Rate 16 04/13/25 09:41 Blood Pressure 94/68 L 04/13/25 09:41 Pulse Oximetry 97 04/13/25 09:41 Oxygen Delivery Room Air 04/13/25 09:41 Temperature 36.3 C L 04/13/25 09:41 Pulse Rate 89 04/13/25 09:41 Respiratory Rate 16 04/13/25 09:41 Blood Pressure 94/68 L 04/13/25 09:41 Pulse Oximetry 97 04/13/25 09:41 Oxygen Delivery Room Air 04/13/25 09:41 Discharge Plan Discharge Clinical Impression: Allergic dermatitis, Poison sumac Patient Disposition: Home Condition: Stable Instructions: Antibiotic Form, Poison [place] (ED) Patient Language: Grenadian Prescriptions: New prednisone 20 mg tablet See Rx Instructions .ROUTE .COMPLEX Qty: 18 0RF Rx Instructions: take 2 tabs po daily x 5 days, then 1 tab po daily x 5 days, then 1/2 tab po daily x 6 days No Action aspirin 81 mg tablet,delayed release (DR/EC) 81 mg PO DAILY tizanidine 4 mg tablet 4 mg PO QHS PRN tramadol 50 mg tablet PO duloxetine [Cymbalta] 30 mg capsule,delayed release(DR/EC) 30 mg PO DAILY duloxetine [Cymbalta] 60 mg capsule,delayed release(DR/EC) 60 mg PO BID hydrocodone-acetaminophen 5-325 mg tablet 1 tablet PO QHS PRN gabapentin 300 mg capsule See Rx Instructions .ROUTE .COMPLEX Qty: 60 3RF Dose Instruction: TAKE 2 CAPSULES BY MOUTH EVERY DAY AT BEDTIME Rx Instructions: TAKE 2 CAPSULES BY MOUTH EVERY DAY AT BEDTIME omeprazole 20 mg capsule,delayed release(DR/EC) 20 mg PO DAILY Qty: 90 1RF carvedilol 25 mg tablet 25 mg PO Q12H Qty: 90 3RF Rx Instructions: must administer with a meal/food calcitriol 0.25 mcg capsule See Rx Instructions .ROUTE .COMPLEX Qty: 36 3RF Dose Instruction: TAKE 1 CAPSULE BY MOUTH 3 TIMES A WEEK Rx Instructions: TAKE 1 CAPSULE BY MOUTH 3 TIMES A WEEK atorvastatin 40 mg tablet See Rx Instructions .ROUTE .COMPLEX Qty: 90 3RF Dose Instruction: TAKE 1 TABLET BY MOUTH EVERY DAY AT BEDTIME Rx Instructions: TAKE 1 TABLET BY MOUTH EVERY DAY AT BEDTIME Follow-up/Referrals: Pascual Marroquin MD [Physician] - Time of Disposition: 10:27
== END 2025-04-13 10:34 | disposition home or self-care (01) ==
PROVIDERS: Emergency Provider Nurse Practitioner
DX: L23.9 Allergic contact dermatitis, unspecified cause (principal); L23.7 Allergic contact dermatitis due to plants, except food; F17.210 Nicotine dependence, cigarettes, uncomplicated; I12.9 Hypertensive chronic kidney disease with stage 1 through stage 4 chronic kidney disease, or unspecified chronic kidney disease; E11.22 Type 2 diabetes mellitus with diabetic chronic kidney disease; N18.9 Chronic kidney disease, unspecified; E11.40 Type 2 diabetes mellitus with diabetic neuropathy, unspecified; F41.9 Anxiety disorder, unspecified; Z79.82 Long term (current) use of aspirin
CPT/HCPCS: 99213; G0463

== ENCOUNTER 2025-05-15 10:46 | Emergency (ER) | payer MEDICARE, SELFPAY ==
--- NOTE | ~2025-05-15 | XR_ITS ---
EXAMINATION: [id number] DATE: 05/15/2025 11:57 INDICATION: Right posterior and lateral mid back pain post fall TECHNIQUE: A frontal inspiratory view of the chest and 3 views of the right ribs were obtained. COMPARISON: Chest CT dated 06/25/2025 FINDINGS: Age-indeterminate fractures of the anterior right fifth and sixth ribs which appear new since one yea r prior. Unchanged mild elevation the left hemidiaphragm. Minimal streaky bibasilar atelectasis. No p ulmonary edema, pleural effusion or pneumothorax. Heart size is normal. IMPRESSION: 1. Couple age-indeterminate fractures of the anterior right fifth and sixth ribs, new since one year prior. Correlate for point tenderness at this location. 2. Chronic mild elevation left hemidiaphragm with minimal streaky bibasilar atelectasis. No other acu te cardiopulmonary disease. Reviewed, dictated and finalized at location A. IMPRESSION: 1. Couple age-indeterminate fractures of the anterior right fifth and sixth rib s, new since one year prior. Correlate for point tenderness at this location. 2. Chronic mild elevation left hemidiaphragm with minimal streaky bibasilar ate lectasis. No other acute cardiopulmonary disease.
--- NOTE | ~2025-05-15 | XR_ITS ---
EXAMINATION: XR knee LT 3V DATE: 05/15/2025 11:58 INDICATION: Left knee pain post fall TECHNIQUE: Anteroposterior, 2 oblique, sunrise and crosstable lateral views of the left knee were obt ained COMPARISON: None. FINDINGS: Alignment is normal. No fracture.. Mild joint space narrowing in the medial compartment of the left knee. There is mild to moderate joint space narrowing at the medial side of the patellofemoral compar tment where there is irregularity to the articular cortices of the medial trochlea and medial patella r facet suggesting overlying high-grade chondromalacia. Soft tissues are unremarkable. No knee joint effusion. IMPRESSION: 1. No left knee joint effusion or acute osseous abnormality. 2. Osteoarthritis at the left knee, mild to moderate at the medial aspect of the patellofemoral man rtment and mild at the medial compartment. Reviewed, dictated and finalized at location A. IMPRESSION: 1. No left knee joint effusion or acute osseous abnormality. 2. Osteoarthritis at the left knee, mild to moderate at the medial aspect of th e patellofemoral compartment and mild at the medial compartment.
--- NOTE | ~2025-05-15 | XR_ITS ---
EXAMINATION: XR thoracic spine 3V DATE: 05/15/2025 11:58 INDICATION: Posterior lateral right mid back pain post fall TECHNIQUE: One AP, lateral and lateral swimmer's views of the thoracic spine were obtained. COMPARISON: Chest CT dated 06/25/2024 FINDINGS: 20 degrees mid to lower thoracic levocurvature measured between T7 and T11. 17 degree thoracolumbar d extro scoliosis measured between T11 and L3. Thoracic kyphosis with chronic T6 compression fracture w ith 80% anterior vertebral body height loss. Additional chronic T12 compression fracture with 40% ant erior vertebral body height loss. Both fractures appear unchanged since the prior CT. Remaining verte bral body heights are normal. There is multilevel mild disc height loss in the mid to lower thoracic spine. IMPRESSION: 1. Mild S-shaped thoracolumbar scoliosis and moderate thoracic spondylosis with no change in chronic T6 and T12 compression fractures. Reviewed, dictated and finalized at location A.
--- OUTSIDE RECORDS SUMMARY | 2025-05-15 10:49 | XMS_ITS | Patient Health Record ---
Author Organization Corporate Office Address [address] [place] [address] [address] [place] [address] Care Team Providers Care Tank Tester Name Role Phone Felicia Ann CNP Primary Care Provider Felicia Novak Unavailable Unavailable Ivis LEROY, Johann Unavailable [phone] Allergies Allergen (clinical drug ingredient) Drug/Non Drug [...] Problem Status W/U Status Risk Notes Problem 079560251 Mixed hyperlipid emia (E78.2) Active confirmed Problem 808626233 Cervical spondyl osis without myelopathy (M47.812) Active confirmed Problem Hypertension (46781979) HTN (hypertension) (I10) Active confirmed Problem Osteoarthritis of knee (927873975) Knee osteoarthritis (M17.9) Active confirmed Problem Tobacco abuse (87323704) Tobacco abuse (Z72.0) Active confirmed Problem 82958825 Lumbosacral spondylosis without myelopathy (M47.817) Active confirmed Problem Osteoarthritis (166602887) Osteoarthritis (M19.90) Active confirmed Problem Pathological fracture of vertebra (303489178) Compression fracture of T12 vertebra (M48.54XA) Active confirmed Problem 47086716 Sacroiliitis, no t elsewhere classified (M46.1) Active confirmed Problem 770959430945855 Hypertensive chr onic kidney disease with stage 1 through stage 4 chronic kidney disease, or unspecified chronic kidney disease (I12.9) Active confirmed Problem Panlobular emphysema (0042479) Panlobular emphysema (J43.1) 021 Active confirmed Problem Chronic kidney disease stage 4 (573615341) Chronic kidney disease, stage 4 (severe) (N18.4) Active confirmed Problem 386570121 Morbid obesity d ue to excess calories (E66.01) Active confirmed Problem 432733423 Gastroesophageal reflux disease without esophagitis (K21.9) Active confirmed Problem Pulmonary emphysema (39455497) Pulmonary emphysema, unspecified emphysema type (J43.9) 021 Active confirmed Problem 851674246567355 Primary osteoarthritis of right knee (M17.11) Active confirmed Problem 70052835 Secondary hyperparathyroidism (N25.81) Active confirmed Problem 379995195 Itch (L29.9) Active confirmed Problem 878967048 Cigarette nicoti ne dependence in remission (F17.211) Active confirmed Problem 017835871 Stage 3 chronic kidney disease (N18.3) Active confirmed Problem 36504782 Osteoporosis, unspecified osteoporosis type, unspecified pathological fracture presence (M81.0) Active confirmed Problem 064111546 Other type of osteoarthritis, unspecified site (M19.90) Active confirmed Problem Closed fracture of thoracic vertebra without spinal cord injury (28419484) Compression fracture of T6 vertebra (S22.050A) Active confirmed Problem 829479882 Closed wedge compression fracture of T12 vertebra, initial encounter (S22.080A) Active confirmed Problem Late effect of fracture of spine AND/OR trunk without spinal cord lesion (9325931) Compression fracture of T6 vertebra, sequela (S22.050S) Active confirmed Problem Chronic kidney disease stage 3B (831820101) CKD stage G3b/A1, GFR 30-44 and albumin creatinine ratio <30 mg/g (N18.32) Active confirmed Encounters Encounter Location Date Provider Diagnosis [facility] [address] [place], [place] [id number] 06/03/2024 Johann Langston [facility] [address] [place], [place] [id number] 06/04/2024 Johann Langston Plan Of Treatment Pending [...] PLAN [address] [place] [address] [id number] Keiry Brar Self - patient is the [...]
--- OUTSIDE RECORDS SUMMARY | 2025-05-15 10:49 | XMS_ITS ---
Author Organization Corporate Office Address [address] [place] [address] [address] [place] [address] Care Team Providers Care Chef De Cuisine Name Role Phone Felicia Ann CNP Primary Care Provider Felicia Novak Unavailable Unavailable Johann Langston MD [phone] Social History Sex Assigned At : Social History Observation Description Sex Assigned At Female Encounters Encounter Location Date Provider Diagnosis [address] [place] [address] [facility] Medicine [address] [place], [place] [id number] 06/04/2024 Johann Langston Plan Of Treatment No Information Progress Notes * Keiry BRAR NDOB:[birth year] (73 yo F)Acc No.[id number]:06/04/2024 Patient: Jena Keiry ZAMORA :1950 A ge:73 Y S ex:Female Address:[address] [facility] [address], [address], [place], [address] * true * Date: Generated for Printi ng/Faxing/eTransmitting on: 0 05/15/2025 11:48 AM EDT
--- OUTSIDE RECORDS SUMMARY | 2025-05-15 10:49 | XMS_ITS | Patient Health Record ---
Author Organization [facility] Address [address] [place] [address] Care Team Providers Care Architecture Department Chair Name Role Phone Victor ManuelMelissa mujica Primary Care Provider Allergies Allergen (clinical drug [...] W/U Status Risk Notes Problem Depressive disorder (93311191) Depressive disorder (F32.9) Active confirmed Vital Signs Heart Rate 78 /min 03/15/2025 Temperature 98.4 degrees Fahrenheit 03/15/2025 Respiratory Rate 16 /min 03/15/2025 Blood pressure diastolic 72 mm Hg 03/15/2025 Oximetry 96 % 03/15/2025 Height 62 in in 03/15/2025 Blood pressure systolic 132 mm Hg 03/15/2025 Weight 201 lbs lbs 03/15/2025 BMI 36.76 kg/m2 03/15/2025 Encounters Encounter Location Date Provider Diagnosis [address] [address] 07/13/2024 Melissa Rush Depressive disorder F32.[address] [address] 08/20/2024 Melissa Rush Depressive disorder F32.[address] [address] 11/18/2024 Melissa Rush Depressive disorder F32.[address] [address] 02/10/2025 Melissa Rush Depressive disorder F32.[address] [address] 03/15/2025 Melissa Rush Depressive disorder F32.[address] [address] 07/13/2024 Melissa Rush [facility] [address], [place] [address] 02/04/2025 Melissa Rush [facility] [address], [place] [address] 03/16/2025 Melissa Rush Assessments Encounter Date Diagnosis (ICD Code) Assessment Notes Treatment Notes Treatment Clinical Notes Section Notes 07/13/2024 Depressive disorder (ICD-10 - F32.9) see TE regarding monitoring CKD with this medication. Discussed r/b/se. 08/20/2024 Depressive disorder (ICD-10 - F32.9) [place] agreement to continue current regimen. Discussed r/b/se. 11/18/2024 Depressive disorder (ICD-10 - F32.9) [place] agreement to continue current regimen. Discussed r/b/se. Continue to keep medical team informed of medications, lumber sales supervisor, pain management. 02/10/2025 Depressive disorder (ICD-10 - F32.9) Increasing due to depression and anxiety. Discussed r/b/se. Continue to keep medical team informed of medications, lumber sales supervisor, pain management. Client states she is due for labs soon, will review due to kidney impairment. 03/15/2025 Depressive disorder (ICD-10 - F32.9) Discussed r/b/se. Continue to keep medical team informed of medications, lumber sales supervisor, pain management. Reports no changes with kidneys and had recent check-in with lumber sales supervisor and is aware of increase in medication. [...] May also contact the 24-hour crisis hotline ([facility] refer to the closest emergency room or [...] May also contact the 24-hour crisis hotline ([facility] refer to the closest emergency room or [...] May also contact the 24-hour crisis hotline ([facility] refer to the closest emergency room or [...] May also contact the 24-hour crisis hotline ([facility] refer to the closest emergency room or [...] May also contact the 24-hour crisis hotline ([facility] refer to the closest emergency room or [...] Coverage End Date [employer] Medicare [address] [place] [phone] [id number] Keiry Brar Self - patient is the insured Medical (General) History Medical History History ICD Code depression anxiety hypertension arthritis CKD IV Surgical History Surgery Date(Month/Year) tonsillectomy and adenoidectomy appendectomy hysterectomy section Hospitalization History Reason Date(Month/Year) surgeries childbirth [facility]
--- OUTSIDE RECORDS SUMMARY | 2025-05-15 10:49 | XMS_ITS | Encounter Summary ---
Author Organization [facility] Address [address] [place] [address] Phone Care Team Providers Care Manager Contact Name Role Phone Lars Salazar DO Primary Care Provider [phone] Rui Melo MD Primary Care Provider [phone] Arik Colbert MD Primary Care Provider [phone] Deon Corcoran MD Unavailable Carito Agudelo MD Primary Care Provider Encounter Details Date Type Department Care Team (Late st Contact Info) Description 12/31/2017 Orders Only [facility] ProviderJacobo MD [address] [place] [address] Social History Tobacco Use Types Packs/Day Years Used Date Smoking Tobacco: Every Day Alcohol Use Standard Drinks/Week Comments Yes 0 (1 standard drink = 0.6 oz pur e alcohol) Comments No Sex and Gender Information Value Date Recorded Sex Assigned at Not on file Legal Sex Female 3:20 AM PC TECH Gender Identity Female 04/13/2025 4:35 AM CDT [...] documented as of this encounter Care Teams Manager Contact Relationship Specialty Start Date End Date Lars Salazar DO [address] [facility] [address] [place] [address] PCP - General 03/24/15 04/10/21 Rui Melo MD [address] [place] [address] PCP - General 04/11/21 05/29/23 Arik Colbert MD [address] [place] [address] PCP - General Family Practice 05/30/23 11/23/24 Carito Agudelo MD [address] [place] [address] [address] [place] [address] PCP - General Family Medicine 11/24/24 Deon Corcoran MD [address] [place] [address] [address] [place] [address] Consulting Physician Pulmonary Disease 08/03/23 documented as of this encounter
--- OUTSIDE RECORDS SUMMARY | 2025-05-15 10:49 | XMS_ITS | Patient Health Record ---
Author Organization [facility] Address [address] [place] [address] Care Team Providers Care Panman Name Role Phone Felicia Haley Primary Care Provider Unav ailable Ruiz Holloway Unavailable [phone] Allergies Allergen (clinical drug ingredient) Drug/Non Drug [...] W/U Status Risk Notes Problem Chronic pain (89326384) Other chronic pain (G89.29) Active confirmed Problem Chronic kidney disease stage 3B (disorder) (786781228) Stage 3b chronic kidney disease (N18.32) Active confirmed Problem Chronic kidney disease due to hypertension (307846522459570) Benign hypertensive kidney disease with chronic kidney disease stage I through stage IV, or unspecified (I12.9) Active confirmed Problem Neuropathy (455212358) Neuropathy (G62.9) Active confirmed Problem Chronic kidney disease stage 4 (411055153) CKD (chronic kidney disease) stage 4, GFR 15-29 ml/min (N18.4) Active confirmed Problem Hyperparathyroidism (84655438) Hyperparathyroidism (E21.3) Active confirmed Plan Of Treatment [...] [employer] [address] [place] [id number] Keiry Brar Self - patient is the insured Medical (General) History Medical History History ICD Code CKD Stage 4, severe hpertensive chronic kidney d isease with stage 1through 4 chronic kidney disease, or unspecified chronic kidney disease CKD stage G3b/A1 pulmonary emphysema, unspecified emphyse ma type panlobular emphysema osteoarthritis osteoporosis
--- OUTSIDE RECORDS SUMMARY | 2025-05-15 10:49 | XMS_ITS | Encounter Summary ---
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 Gender Identity Female 04/13/2025 4:35 AM CDT Sexual Orientation Not on file documented as of this encounter Plan of Treatment Not on file documented as of this encounter Procedures Procedure Name Priority Date/Time Associated Diagnosis Comments PROTEIN / CREATININE RATIO, URINE, RANDOM Routine 05/14/2025 9:00 AM CDT EGFR Routine 05/14/2025 8:49 AM CDT VITAMIN D 25 HYDROXY Routine 05/14/2025 8:49 AM CDT PTH Routine 05/14/2025 8:49 AM CDT RENAL FUNCTION PANEL Routine 05/14/2025 8:49 AM CDT documented in this encounter Results * (ABNORMAL) Protein / creatinine ratio, urine, random (05/14/2025 9:00 AM CDT) Protein, ur, quant 32.3 mg/dL [facility] ([place]) Comment: Interpretive Data No reference range established. Current interpretive data was last revised 2019. Creatinine Ur 119.0 mg/dL [facility] ([place]) Comment: Interpretive Data No reference range established. Current interpretive data was last revised 2019. Protein/creatinin e ratio 271.4(H) 0.0 - 180.0 mg/g CR [facility] ([place]) Urine 05/14/2025 9:00 AM CDT 05/14/2025 9:11 AM CDT us Eric Mcbride MD LAB URINE ORDERABLES Final Res ult [facility]ATO) [address] [facility] [place] [address] * (ABNORMAL) eGFR (05/14/2025 8:49 AM CDT) eGFR 26(L) >=60 mL/min/1. 73 m2 Comment: Interpretive Data [...] interpretive data was last reviewed 2021. Blood 05/14/2025 8:49 AM CDT 05/14/2025 9:01 AM CDT us Eric Mcbride MD LAB BLOOD ORDERABLES Final Res ult [facility] ([place]) 1 [facility] [employer] [place] [address] * Vitamin D 25 hydroxy (05/14/2025 8:49 AM CDT) Vitamin D 25-OH 75 30 - 80 ng/mL [facility] ([place]) Blood 05/14/2025 8:49 AM CDT 05/14/2025 9:01 AM CDT us Eric Mcbride MD LAB BLOOD ORDERABLES Final Res ult [facility] ([place]) 1 [facility] [employer] [place] [address] * (ABNORMAL) PTH (05/14/2025 8:49 AM CDT) PTH 96(H) 18 - 58 pg/mL [facility] ([place]) Blood 05/14/2025 8:49 AM CDT 05/14/2025 9:01 AM CDT us Eric Mcbride MD LAB BLOOD ORDERABLES Final Res ult [facility] ([place]) [address] [facility] Department [place] [address] * (ABNORMAL) Renal function panel (05/14/2025 8:49 AM CDT) Sodium 139 135 - 145 mmol/L [facility] ([place]) Potassium, pl 4.5 3.3 - 4.9 mmol/L [facility] ([place]) Chloride 104 97 - 110 mmol/L [facility] ([place]) CO2 25 22 - 32 mmol/L [facility] ([place]) Anion gap 10 2 - 15 mmol/L [facility] ([place]) BUN 41(H) 6 - 25 mg/dL [facility] ([place]) Creatinine 1.98(H) 0.60 - 1.10 mg/dL [facility] ([place]) Glucose 162 70 - 199 mg/dL [facility] ([place]) Comment: Interpretive Data Fasting glucose [...] interpretive data was last revised 2022. Calcium 10.7(H) 8.5 - 10.3 mg/dL [facility] ([place]) Phosphorus, pl 3.8 2.3 - 4.5 mg/dL [facility] ([place]) Albumin 4.0 3.5 - 5.0 g/dL [facility] ([place]) Blood 05/14/2025 8:49 AM CDT 05/14/2025 9:01 AM CDT us Eric Mcbride MD LAB BLOOD ORDERABLES Final Res ult [facility] ([place]) 1 [facility] Department [place] [address] documented in this encounter Visit Diagnoses Not on filedocumented in this encounter Care Teams Joy Loading Machine Operator Relationship Specialty Start Date End Date Carito Agudelo MD [address] [facility] [address] [place] [address] PCP - General Family Medicine 11/24/24 Deon Corcoran MD [address] [place] [address] [address] [place] [address] Consulting Physician Pulmonary Disease 08/03/23 documented as of this encounter
--- OUTSIDE RECORDS SUMMARY | 2025-05-15 10:49 | XMS_ITS | Referral Summary ---
Author Organization [facility] Address 1 [place] [address] Care Team Providers Care Hazardous Materials Driver Name Role Phone Deon Corcoran MD Unavailable Carito Agudelo MD Primary Care Provider Encounters Date Type Department Care Team Description 05/14/2025 8:40 AM CDT Lab [address] [address] Arrived 04/29/[address] Advanced Medicine 5th [place] [address] Omid Faria MD 04/26/2025 8:40 AM CDT Lab [address] [address] Stage 4 chronic kidney disease (HCC) 03/29/2025 9:00 AM CDT Infusion [facility] [address] [place] [address] [address] [place] [phone] Age-related osteoporosis without current pathological fracture (Primary Dx) 03/25/2025 Telephone [facility] [address] [place] [phone] Darivn Dominique RN 03/24/[address] Advanced Medicine 5th [place] [phone] Omid Faria MD 03/24/2025 9:45 AM CDT Lab [address] [address] Chronic kidney disease-mineral and bone disorder (CKD-MBD); Age-related osteoporosis without current pathological fracture 03/23/2025 Orders Only [facility] [address] [place] [phone] Janelle Cuevas RN 03/11/2025 Telephone [facility] Surgery [address] [facility] [address] Medical Office Building 1 [place] [address] Jerilyn Mackey LPN NON URGENT MEDICAL QUERY 02/18/2025 Orders Only [facility] Bone Health [address] [facility] Advanced Medicine 5th [place] [address] [place] [address] Omid Faria MD Chronic kidney disease-mineral and bone disorder (CKD-MBD) (Primary Dx) from Last 3 Months Allergies Active Allergy [...] on file Legal Sex Female 3:20 AM TERRITORY MANAGER Gender Identity Female 04/13/2025 4:35 AM CDT [...] FUNCTION PANEL Routine 05/14/2025 8:49 AM CDT EGFR Routine 04/26/2025 8:41 AM CDT Stage 4 chronic kidney disease (HCC) BASIC METABOLIC PANEL Routine 04/26/2025 8:41 AM CDT Stage 4 chronic kidney disease (HCC) EGFR Routine 03/24/2025 9:55 AM CDT Chronic kidney disease-mineral and bone disorder (CKD-MBD) BASIC METABOLIC PANEL Routine 03/24/2025 9:55 AM CDT Chronic kidney disease-mineral and bone disorder (CKD-MBD) DEXA TBS AXIAL SKELETON BONE DENSITY 1 OR MORE SITES Schedule Routine, Read Routine (OP Routine) 01/29/2025 2:24 PM CDT Age-related osteoporosis without current pathological fracture COLONOSCOPY 05/14/2024 7:48 AM CDT SCREENING MAMMOGRAM BILATERAL W LUCAS Schedule Routine, Read Routine (OP Routine) 11/11/2017 1:54 PM TERRITORY MANAGER Screening breast examination from Last 3 Months or Most Recently Relevant to Health Maintenance Results * (ABNORMAL) Protein / creatinine ratio, [...] LAB URINE ORDERABLES Final Res ult ANAHI ORTI[facility] ([place]) 1 [facility] [place] [address] * (ABNORMAL) eGFR (05/14/2025 8:49 [...] BLOOD ORDERABLES Final Res ult ANAHI ORTIZ ([place]) 1 [facility] [place] [address] * Vitamin D 25 hydroxy (05/14/2025 8:49 AM CDT) Vitamin D 25-OH 75 30 - 80 ng/mL ANAHI [facility] ([place]) Blood 05/14/2025 8:49 AM CDT 05/14/2025 9:01 AM CDT us Eric Mcbride MD LAB BLOOD ORDERABLES Final Res ult ANAHI OR[facility] ([place]) 1 [facility] [place] [address] * (ABNORMAL) PTH (05/14/2025 8:49 AM CDT) PTH 96(H) 18 - 58 pg/mL A[facility] ([place]) Blood 05/14/2025 8:49 AM CDT 05/14/2025 9:01 AM CDT us Eric Mcbride MD LAB BLOOD ORDERABLES Final Res ult [facility] ([place]) 1 [facility] [place] [address] * (ABNORMAL) Renal function panel (05/14/2025 8:49 [...] MD LAB BLOOD ORDERABLES Final Res ult Performing Organization Address City/[facility]/ZIP Co de Phone Number ANAHI ORTI[facility] ([place]) 1 [facility] [employer] [place] [address] * (ABNORMAL) eGFR (04/26/2025 8:41 AM CDT) eGFR 28(L) >=60 mL/min/1. 73 m2 Comment: Interpretive Data [...] interpretive data was last reviewed 2021. Blood 04/26/2025 8:41 AM CDT 04/26/2025 9:30 AM CDT us Omid Faria MD LAB BLOOD ORDERABLES Final Resul t ANAHI ORTI[facility] ([place]) 1 [facility] [employer] [place] [address] * (ABNORMAL) Basic metabolic panel (04/26/2025 8:41 AM CDT) Sodium 137 135 - 145 mmol/L Potassium, pl 4.8 3.3 - 4.9 mmol/L [facility] ([place]) Chloride 102 97 - 110 mmol/L [facility] ([place]) CO2 20(L) 22 - 32 mmol/L [facility] ([place]) Anion gap 15 2 - 15 mmol/L [facility] ([place]) BUN 45(H) 6 - 25 mg/dL [facility] ([place]) Creatinine 1.89(H) 0.60 - 1.10 mg/dL [facility] ([place]) Glucose 269(H) 70 - 199 mg/dL [facility] ([place]) Comment: Interpretive Data Fasting glucose [...] interpretive data was last revised 2022. Calcium 9.8 8.5 - 10.3 mg/dL [facility] ([place]) Blood 04/26/2025 8:41 AM CDT 04/26/2025 9:30 AM CDT Narrative [facility] ([place]) - 04/26/2025 10:01 AM CDT THIS IS TO BE DONE ONE WEEK AFTER RECLAST INFUSION us Omid Faria MD LAB BLOOD ORDERABLES Final Resul t A[facility]HI ORTI[facility] ([place]) 1 [facility] Department [place] [address] * (ABNORMAL) eGFR (03/24/2025 9:55 AM CDT) [...] MD LAB BLOOD ORDERABLES Final Resul t [facility] ([place]) 1 [facility] [place] [address] * (ABNORMAL) Basic metabolic panel (03/24/2025 9:55 AM CDT) Sodium 138 135 - 145 mmol/L Potassium, pl 4.6 3.3 - 4.9 mmol/L [facility] ([place]) Chloride 102 97 - 110 mmol/L [facility] ([place]) CO2 25 22 - 32 mmol/L [facility] ([place]) Anion gap 12 2 - 15 mmol/L [facility] ([place]) BUN 39(H) 6 - 25 mg/dL [facility] ([place]) Creatinine 1.83(H) 0.60 - 1.10 mg/dL [facility] ([place]) Glucose 139 70 - 199 mg/dL [facility] ([place]) [...] Final Resul t ANAHI ORTIZ ([place]) 1 [facility] Department [place] [address] * Dexa TBS Axial Skeleton Bone Density 1 or more sites (01/29/2025 2:24 PM CDT) Anatomical Region Laterality Modality Wrist, Body N/A Radiographic Geraldine ging Narrative 01/30/2025 3:52 PM CDT Patient Name: Keiry Brar Date of : 1950 Date of scan: 01/29/2025 Bone mineral density was performed on a Hologic Discovery Densitometer. Based on machine cross-calibration and [...] by the International Society of Clinical Densitometry. [id number] Aly Guzmán MD IM DXA PROCEDURES Paige l Result * Colonoscopy (05/14/2024 7:48 AM CDT) Anatomical Region Laterality Modality Other Narrative Procedure Note Mariana Mon MD - 05/14/2024 7:48 AM CDT [facility] Patient Name: Keiry Brar Procedure Date: 05/14/2024 7:48 AM Date of : 1950 Admit Type: Outpatient Age: 73 Gender: Female Attending MD: Mariana Mon M.D. Room: [facility] ENDOSCOPY ROOM 1 Note Status: [...] under direct vision. The Pediatric Colonoscope PCF-H190L [id number] was introducedthrough the anus and advanced to [...] medium-sized. Electronically signed by Mariana Mon M.D. Maraina Mon M.D. 05/14/2024 9:09:34 AM Number of Addenda: 0 Note Initiated On: 05/14/2024 7:48 AM Procedure Code(s): --- Professional --- 82989, Colonoscopy, flexible; with removal of tumor(s), polyp(s), or other lesion(s) by snare technique Diagnosis Code(s): --- Professional --- K64.8, Other hemorrhoids D12.3, Benign neoplasm of transverse colon (hepatic flexure orsplenic flexure) Z09, Encounter for follow-up examination after completed treatmentfor conditions other than malignant neoplasm Z86.010, Personal history of colonic polyps K57.30, Diverticulosis of large intestine without perforation orabscess without bleeding CPT copyright 2020 [employer] [employer]. All rights reserved. The codes documented in this report are preliminary and upon medical record technician reviewmay be revised to meet current compliance requirements. Recognized by the [place] [employer] for Gastrointestinal Endoscopy for promoting quality in endoscopy us Mariana Mon MD ENDOSCOPY PROCEDURES Final Result * Screening Mammogram Bilateral W Lucas (11/11/2017 1:54 PM TERRITORY MANAGER) Anatomical Region Laterality Modality Breast Bilateral Mammography Impressions 11/11/2017 1:57 PM TERRITORY MANAGER BIRADS Category 2: Benign finding(s). Digital technology was employed plus computer-aided detection software (R2) was utilized in interpretation of these images. This facility utilizes a reminder system to notify patients of yearly mammograms. Electronically signed by: Pollo Loya M.D. Narrative 11/11/2017 1:57 PM TERRITORY MANAGER EXAMINATION: Digital screening mammogram with tomosynthesis. HISTORY: [...] Insurance [employer] MEDICARE ADVANTAGE AETNA MEDICARE GOLD AETNA MEDICARE GOLD Advance Directives For more information, please contact: [phone] * Full Code (Latest Code Status on [...] 6:54 PM 08/03/2023 6:17 PM Care Teams Hazardous Materials Driver Relationship Specialty Start Date End Date Carito Agudelo MD [address] [facility] [address] [place] [address] PCP - General Family Medicine 11/24/24 Deon Corcoran MD [address] [place] [address] [address] [place] [address] Consulting Physician Pulmonary Disease 08/03/23
--- OUTSIDE RECORDS SUMMARY | 2025-05-15 10:49 | XMS_ITS | Clinical Summary ---
Author Organization [facility] Address 1 [place] [address] Care Team Providers Care Life Agent Name Role Phone Deon Corcoran MD Unavailable [...] Care Team Description 05/14/2025 8:40 AM CDT [address] [address] Arrived 04/29/[address] Advanced Medicine 5th [place] [address] [place] [address] Omid Faria MD 04/26/2025 8:40 AM CDT [address] [address] Stage 4 chronic kidney disease (HCC) 03/29/2025 9:00 AM CDT Infusion [facility] [address] [place] [address] Age-related osteoporosis without current pathological fracture (Primary Dx) 03/25/2025 Telephone [facility] [address] [facility] [address] [place] [phone] Darvin Dominique RN 03/24/2025 9:45 AM CDT [facility] 1 [place] [address] Chronic kidney disease-mineral and bone disorder (CKD-MBD); Age-related osteoporosis without current pathological fracture 03/24/2025 Telephone [place] [address] [facility] Advanced Medicine 5th Floor [address] [place] [phone] Omid Faria MD 03/23/2025 Orders Only [facility]fusion [facility] [address] [facility] [address] [place] [phone] Janelle Cuevas RN 03/11/2025 Telephone [facility] Surgery [address] [facility] [address] Medical Office Building 1 [place] [address] Jerilyn Mackey LPN NON URGENT MEDICAL QUERY 02/18/2025 Orders Only [facility] [address] [facility] 5th [place] [address] [place] [phone] Omid Faria MD Chronic kidney disease-mineral and bone disorder (CKD-MBD) (Primary Dx) from Last 3 Months Surgical History Surgery Date Site/Laterality Comments KNEE ARTHROSCOPY Bilateral Arthroscopy knee TOTAL ABDOMINAL HYSTERECTOMY 10/14/1977 Hysterectomy, total BREAST CYST ASPIRATION 10/14/1994 Right COLONOSCOPY 12/10/2023 First Medical History Medical History Date Comments Hx Other Medical back pain Smoking Hypertension Hypothyroidism Kidney failure Diabetes mellitus (HCC) Cubital tunnel syndrome Trigger finger Carpal tunnel syndrome Malignant neoplasm of colon 03/16/2024 Colon cancer (HCC) Age-related osteoporosis without [...] on file Legal Sex Female 3:20 AM EMPLOYMENT MANAGER Gender Identity Female 04/13/2025 4:35 AM [...] Read Routine (OP Routine) 11/11/2017 1:54 PM EMPLOYMENT MANAGER Screening breast examination from Last 3 [...] Final Res ult ANAHI ORTIZ ([place]) 1 [facility] Department [place] [address] * (ABNORMAL) eGFR (05/14/2025 8:49 [...] BLOOD ORDERABLES Final Res ult ANAHI ORTIZ ([place]) 1 [facility] [place] [address] * Vitamin D 25 hydroxy (05/14/2025 8:49 AM CDT) Vitamin D 25-OH 75 30 - 80 ng/mL A[facility] ([place]) Blood 05/14/2025 8:49 AM CDT 05/14/2025 9:01 AM CDT us Eric Mcbride MD LAB BLOOD ORDERABLES Final Res ult ANAHI ORTIZ ([place]) 1 [facility] [place] [address] * (ABNORMAL) PTH (05/14/2025 8:49 AM CDT) PTH 96(H) 18 - 58 pg/mL A[facility] ([place]) Blood 05/14/2025 8:49 AM CDT 05/14/2025 9:01 AM CDT Eric Mcbride MD LAB BLOOD ORDERABLES Final Res ult ANAHI ORTIZ ([place]) 1 [facility] Department [place] [address] * (ABNORMAL) Renal function panel (05/14/2025 8:49 [...] ORDERABLES Final Res ult Performing Organization Address City/[facility]/ZIP Co de Phone Number ANAHI ORTIZ ([place]) 1 [facility] [place] [address] * (ABNORMAL) eGFR (04/26/2025 8:41 AM CDT) [...] Final Resul t ANAHI ORTIZ ([place]) 1 [facility] [place] [address] * (ABNORMAL) Basic metabolic panel (04/26/2025 8:41 AM CDT) Pathologist [facility] Sodium 137 135 - 145 mmol/L Potassium, [...] 2022. Calcium 9.8 8.5 - 10.3 mg/dL A[facility] ([place]) Blood 04/26/2025 8:41 AM CDT 04/26/2025 9:30 AM CDT Narrative [facility] - 04/26/2025 10:01 AM CDT THIS IS TO BE DONE ONE WEEK AFTER RECLAST INFUSION us Omid Faria MD LAB BLOOD ORDERABLES Final Resul t ANAHI ORTIZ ([place]) 1 [facility] Department [place] [address] * (ABNORMAL) eGFR (03/24/2025 9:55 AM CDT) [...] LAB BLOOD ORDERABLES Final Resul t A[facility] ([place]) 1 [facility] Department [place] [address] * (ABNORMAL) Basic metabolic panel (03/24/2025 9:55 [...] Final Resul t ANAHI ORTIZ ([place]) 1 [facility] Department [place] [address] * Dexa TBS Axial Skeleton Bone Density 1 or more sites (01/29/2025 2:24 PM CDT) Anatomical Region Laterality Modality Wrist, Body N/A Radiographic Geraldine ging Narrative 01/30/2025 3:52 PM CDT Patient Name: Keiyr Brar Date of : 1950 Date of [...] by the International Society of Clinical Densitometry. [id number] Aly Guzmán MD IM DXA PROCEDURES Paige l Result * Colonoscopy (05/14/2024 7:48 AM CDT) Anatomical Region Laterality Modality Other Narrative Procedure Note Mariana Mon MD - 05/14/2024 7:48 AM CDT [facility] Patient Name: Keiry Brar Procedure Date: 05/14/2024 7:48 AM Date of : 1950 Admit Type: Outpatient Age: 73 Gender: Female Attending MD: Mariana Mon M.D. Room: [facility] ENDOSCOPY ROOM 1 Note Status: Finalized [...] under direct vision. The Pediatric Colonoscope PCF-H190L [id number] was introducedthrough the anus and advanced to [...] 7:48 AM Procedure Code(s): --- Professional --- 47037, Colonoscopy, flexible; with removal of tumor(s), polyp(s), or other lesion(s) by snare technique Diagnosis Code(s): --- Professional --- K64.8, Other hemorrhoids D12.3, Benign neoplasm of transverse colon (hepatic flexure orsplenic flexure) Z09, Encounter for follow-up examination after completed treatmentfor conditions other than malignant neoplasm Z86.010, Personal history of colonic polyps K57.30, Diverticulosis of large intestine without perforation orabscess without bleeding CPT copyright 2020 [employer]. All rights reserved. The codes documented in this report are preliminary and upon corporate coordinator reviewmay be revised to meet current compliance requirements. Recognized by the [place] [employer] Gastrointestinal [employer]oscopy for promoting quality in endoscopy us Mariana Mon MD ENDOSCOPY PROCEDURES Final Result * Screening Mammogram Bilateral W Lucas (11/11/2017 1:54 PM EMPLOYMENT MANAGER) Anatomical Region Laterality Modality Breast Bilateral Mammography Impressions 11/11/2017 1:57 PM EMPLOYMENT MANAGER BIRADS Category 2: Benign finding(s). Digital technology was employed plus computer-aided detection software (R2) was utilized in interpretation of these images. This facility utilizes a reminder system to notify patients of yearly mammograms. Electronically signed by: Pollo Loya M.D. Narrative 11/11/2017 1:57 PM EMPLOYMENT MANAGER EXAMINATION: Digital screening mammogram with tomosynthesis. [...] Advance Directives For more information, please contact: [phone] * Full Code (Latest Code Status on [...] 6:54 PM 08/03/2023 6:17 PM Care Teams Life Agent Relationship Specialty Start Date End Date Cariot Agudelo MD [address] [place] [address] [address] [place] [address] PCP - General Family Medicine 11/24/24 Deon Corcoran MD [address] [place] [address] [address] [place] [address] Consulting Physician Pulmonary Disease 08/03/23
--- OUTSIDE RECORDS SUMMARY | 2025-05-15 10:49 | XMS_ITS | Clinical Summary ---
Author Organization [facility] Address [address], [facility] [address] [place] [address] Phone Care Team Providers Care Wheel And Axle Inspector Name Role Phone Mingo Guadarrama APRN, CHARI [...] 2 - PPSV23) 03/11/2020 03/11/2019 SARS-COV-2 Immunization ( - season) 2024 DEXA Bone Density 06/05/2025 06/05/2023, 08/06/2022, 11/11/2017 Influenza Immunization (#1) 2025 Respiratory Syncytial Virus (RSV) Immunization (Adult) [...] DETECTED NON DETECTED 03/07/2016 9:[address] [facility] Comment: IGM Antibodies to HAV not detected. Does not exclude early acute or recovered HAV infection. HEP B CORE AB (IGM) NON DETECTED NON DETECTED 03/07/2016 9:[address] [facility] Comment: IGM anti-HBC not detected. Does not exclude the possibility of exposure to or infection with HBV. HEPATITIS B SURFACE ANTIGEN NON DETECTED NON DETECTED 03/07/2016 9:[address] [facility] hepatitis C antibody 0.07 <1 S/CO 03/07/2016 9:[address] [facility] Comment: Signal/Cutoff ratio < 0.79 is Nondetected Signal/Cutoff ratio 0.80-0.99 is Grayzone Signal/Cutoff ratio > 0.99 is Detected Supplemental assays are recommended if signal/cutoff ratio is >/=1.00. Signal/cutoff ratio result >/= 5.00 is 97% predictive of positivity for recombinant immunoblot assay (RIBA) and will be reported to the [place] Department of Public Health as required. Blood specimen (specimen) Venipuncture / Unknown 03/07/2016 7:00 AM CDT 03/07/2016 10:28 AM CDT us Nikolas Colmenares MD HEMATOLOGY ORDERABLES Final Re sult [facility] [address] [facility] [place] [address] from Last 3 Months or Most Recently Relevant to Health Maintenance Insurance MEDICARE C AETNA Care Teams Wheel And Axle Inspector Relationship Specialty Start Date End Date Mingo Guadarrama, FAT PRESSROOM WORKER, DENT REMOVER [address] [place] [address] PCP - General Certified Nurse Practitioner 10/05/16
--- OUTSIDE RECORDS SUMMARY | 2025-05-15 10:49 | XMS_ITS | Encounter Summary ---
Author Organization [facility] Healthcare Address [address] [place] [address] Care Team Providers Care Telegraph Repeater Technician Name Role Phone Arik Colbert MD Primary Care Provider [phone] Deon Corcoran MD Unavailable Carito Agudelo MD Primary Care Provider Encounter Details Date Type Department Care Team ([facility] st Contact Info) Description 04/02/2024 [facility] Post Discharge Follow up phone call [facility] Center [address] [place] [address] Katerine Gipson RN Social History Tobacco Use [...] on file Legal Sex Female 3:20 AM 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 AIR 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 Gender Identity Female 04/13/2025 4:35 AM CDT Sexual Orientation Not on file documented as of this encounter Plan of Treatment Not on file documented as of this encounter Visit Diagnoses Not on filedocumented in this encounter Care Teams Telegraph Repeater Technician Relationship Specialty Start Date End Date Arik Colbert MD PCP - General Family Practice 05/30/23 11/23/24 Carito Agudelo MD [address] [facility] [address] [place] [address] PCP - General Family Medicine 11/24/24 Deon Corcoran MD [address] [facility] [address] [place] [address] Consulting Physician Pulmonary Disease 08/03/23 documented as of this encounter
--- OUTSIDE RECORDS SUMMARY | 2025-05-15 10:49 | XMS_ITS | Encounter Summary ---
Author Organization [facility] Address [address] [place] [address] Phone Care Team Providers Care Safe And Vault Service Mechanic Name Role Phone Deon Corcoran MD Unavailable Carito Agudelo MD Primary Care Provider Encounter Details Date Type Department Care Team (Late st Contact Info) Description 02/01/[address] Medical Office Building [address] [place] [address] Aly Guzmán MD [address] [place] [address] Social History Tobacco Use Types [...] on file Legal Sex Female 3:20 AM 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 MEDICAL 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 Gender Identity Female 04/13/2025 4:35 AM CDT Sexual Orientation Not on file documented as of this encounter Plan of Treatment Not on file documented as of this encounter Visit Diagnoses Not on filedocumented in this encounter Care Teams Safe And Vault Service Mechanic Relationship Specialty Start Date End Date Carito Agudelo MD [address] [place] [address] [address] [place] [address] PCP - General Family Medicine 11/24/24 Deon Corcoran MD [address] [place] [address] [address] [place] [address] Consulting Physician Pulmonary Disease 08/03/23 documented as of this encounter
--- OUTSIDE RECORDS SUMMARY | 2025-05-15 10:49 | XMS_ITS ---
Author Organization Corporate Office Address [address] [place] [address] [address] [place] [address] Care Team Providers Care Glass Cut Off Tender Name Role Phone Feliica Ann CNP Primary Care Provider Felicia Novak Unavailable Unavailable Johann Langston MD [phone] REASON FOR VISIT requesting call back Social History Sex Assigned At : Social History Observation Description Sex Assigned At Female Encounters Encounter Location Date Provider Diagnosis [address] [place] [address] [facility] Medicine [address] [place], [place] [id number] 06/03/2024 Johann Langston Plan Of Treatment No Information Progress Notes * Keiry BRAR NDOB:[birth year] (73 yo F)Acc No.[id number]:06/03/2024 Patient: Jena DEANNAJENNA Keiry Montes :1950 A ge:73 Y S ex:Female Address:[address] [place] [address], [address], [place], [address] * true * Date: Generated for Printi ng/Faxing/eTransmitting on: 0 05/15/2025 11:49 AM EDT
--- OUTSIDE RECORDS SUMMARY | 2025-05-15 10:49 | XMS_ITS | Continuity of Care Document ---
Author Organization [facility] Address [address] [place] [address] Phone Care Team Providers Care Day Care Home Mother Name Role Phone Mao Carrera OD Unavailable [...] Diagnoses Date Provider Providers Copied on Encounter [facility], [address], [place], [place], [id number], [place] tel:[phone] [address] [place] Professional Complete Exam (chief complaint) Nuclear sclerotic cataract of both eyesVitreous degeneration and detachment of both eyesOcular migraine 9 Debi Cavanaugh. [facility], [address] [place] [address], [place], [address], [place]. tel:[phone] Referring Provider: Mao Story, [facility] [address] [facility], [place], [address]. tel:[phone] [facility], [address], [place], [place], [id number], [place] tel:[phone] SEC Syed [place] Professional No Information 9 Debi Cavanaugh. [address] [facility], 6th Floor, [place], [address], [place]. tel:[phone] Family History Family Member Type Diagnosis Age At Onset Problem (finding) Family history of Diabe caesar mellitus Payers Payer name Insurance type Covered green party ID Authoralondra mckee(s) [employer] Claims [place] [id number] Social History Type Description Quantity Date Captured [...]
--- OUTSIDE RECORDS SUMMARY | 2025-05-15 10:49 | XMS_ITS | Patient Health Record ---
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
--- OUTSIDE RECORDS SUMMARY | 2025-05-15 10:51 | XMS_ITS | Continuity of Care Document ---
Author Organization [facility] Address [address] [place] [address] Phone Care Team Providers Care Software Qa Manager Name Role Phone Mao Carrera OD Unavailable [...] Diagnoses Date Provider Providers Copied on Encounter [facility], [address], [place], [place], [id number], [place] tel:[phone] [address] [place] Professional Complete Exam (chief complaint) Nuclear sclerotic cataract of both eyesVitreous degeneration and detachment of both eyesOcular migraine 9 Debi Cavanaugh. [facility], [address] [place] [address], [place], [address], [place]. tel:[phone] Referring Provider: Mao Story, [facility] [address] [facility], [place], [address]. tel:[phone] [facility], [address], [place], [place], [id number], [place] tel:[phone] SEC Syed BARR Professional No Information 9 Debi Cavanaugh. [address] [facility], [address]th Floor, [place], [address], [place]. tel:[phone] Family History Family Member Type Diagnosis Age At Onset Problem (finding) Family history of Diabe caesar mellitus Payers Payer name Insurance type Covered republican ID Authoralondra mckee(s) [employer] [place] [id number] Social History Type Description Quantity Date Captured [...]
[2025-05-15 10:53] VITALS: BP 137/95; PULSE 81; RESP 16; TEMP 36.1; O2SAT 99
--- NOTE | 2025-05-15 11:32 | ED_ITS ---
HPI - General Adult General Chief complaint: Back Pain/Injury Stated complaint: Fall Injury/Back Source: patient Mode of arrival: ambulatory Limitations: no limitations History of Present Illness HPI narrative: Pt presents for evaluation after after experiencing a fall 3 days ago. She was chasing her grandchild when she tripped on the sidewalk, landing on her hands and knees. She did not hit her head. No LOC. She is not on blood thinners. She reports 9/10 pain in her back, right posterior and anterior ribs and left knee. She takes hydrocodone and tramadol for chronic pain. She states she has osteoporosis so came in for x rays today. Related Data Home Medications ?Medication ?Instructions ?Recorded ?Confirmed ?Last Taken ?Type aspirin 81 mg tablet,delayed 81 mg PO DAILY 05/14/23 02/16/25 Unknown History release tizanidine 4 mg tablet 4 mg PO QHS PRN 05/14/23 02/16/25 Unknown History tramadol 50 mg tablet mg PO 06/04/24 02/16/25 Unknown History duloxetine 30 mg capsule,delayed 30 mg PO DAILY 09/03/24 02/16/25 Unknown History release (Cymbalta) duloxetine 60 mg capsule,delayed 60 mg PO BID 02/16/25 02/16/25 Unknown History release (Cymbalta) hydrocodone 5 mg-acetaminophen 325 1 tablet PO QHS PRN 02/16/25 02/16/25 Unknown History mg tablet Allergies Allergy/AdvReac Type Severity Reaction Status Date / Time bee venom protein (honey bee) Allergy Unknown Verified 02/16/25 08:53 Iodinated Contrast Media AdvReac Intermediate Unknown Verified 02/16/25 08:53 Review of Systems Review of Systems: CONSTITUTIONAL: Denies fever, chills, or sweats. EYES: Denies visual changes, redness, or discharge. ENT: Denies rhinorrhea, congestion, sore throat, or otalgia. CARDIOVASCULAR: Denies chest pain, palpitations, or edema. RESPIRATORY: Denies cough or dyspnea. GASTROINTESTINAL: Denies abdominal pain, nausea, vomiting, or diarrhea. GENITOURINARY: Denies dysuria or hematuria. SKIN: Reports bruising to the left wrist. Denies rash or itching. MUSCULOSKELETAL: Reports thoracic back pain, pain in the right anterior and posterior ribs and in the left knee. Denies hip, wrist or other joint pain NEUROLOGIC: Denies headache, numbness, dizziness, or weakness. PSYCHIATRIC: Denies anxiety or depression. [facility] Past Medical History Medical History CKD (chronic kidney disease) Newly diagnosed diabetes Low back pain Anxiety Neuropathy Smoker Hypertension Surgical History Surgical History History of Family History Family History Father Family history of hypercholesterolemia Hypertension Acute myocardial infarction Sibling Family history of hypercholesterolemia Mother Hypertension Family history of kidney disease Grandparent Family history of kidney disease Family history of Parkinson's disease Social History Social History Smoking packs per day: 0.75 Smoking cigarettes per day: 15.0 Smoking status: Current every day smoker Second hand tobacco smoke exposure: Yes Alcohol intake: never Do You Feel Safe in your Home?: Yes Lack of Transportation: No Lack of Food: Sometimes True Current Housing: I Do Not Have Housing Concerned About Future Housing: YES Difficulty Paying Gas/Electric Bills: Decline to Answer Difficulty Paying for Meds: No Currently Unemployed: No Education: Associate Degree Difficulty w/ Childcare or Family Care: No Living arrangements: with family Gender identity (if verbalized by the patient): Female Agree to blood products: No Exam Narrative: GENERAL: Well-appearing, well-nourished, and in no acute distress. HEAD: Normocephalic, atraumatic. EYES: PERRLA and EOMI. ENT: Nares clear, no rhinorrhea or epistaxis. Mucous membranes moist. Oropharynx without tonsillar hypertrophy exudate or other lesions. Bilateral TMs pearly michaels nonbulging NECK: Supple. No adenopathy or masses. No carotid bruits or JVD CHEST: Clear to auscultation. No respiratory distress. No wheezes rales or rhonchi. Tenderness noted to left anterior ribs HEART: Regular rate and rhythm. No murmur heard. Normal peripheral pulses. ABDOMEN: Soft, nontender, nondistended, normal active bowel sounds. BACK: There is tenderness over left posterior ribs and diffusely in the thoracic spinal region EXTREMITIES: Mild tenderness in the anterior left knee. No crepitus or deformity. SKIN: There is ecchymosis noted to the left wrist NEURO: No focal deficits. Alert and oriented x3. PSYCH: Normal mood and affect. Course Course Emergency Course: This is a 74-year-old female who presented for evaluation after a recent fall. X rays showed right rib fractures. Provided with incentive spirometer. Recommend smoking cessation. She already has pain medication at home. Will follow up with primary provider. Go to the ER for worsening symptoms. Patient in agreement with plan of care. Level of Care: Express Care Visit Vital Signs Vital signs: Vital Signs Temperature 36.1 C L 05/15/25 10:53 Pulse Rate 81 05/15/25 10:53 Respiratory Rate 16 05/15/25 10:53 Blood Pressure 137/95 H 05/15/25 10:53 Pulse Oximetry 99 05/15/25 10:53 Oxygen Delivery Room Air 05/15/25 10:53 Temperature 36.1 C L 05/15/25 10:53 Pulse Rate 81 05/15/25 10:53 Respiratory Rate 16 05/15/25 10:53 Blood Pressure 137/95 H 05/15/25 10:53 Pulse Oximetry 99 05/15/25 10:53 Oxygen Delivery Room Air 05/15/25 10:53 Medical Decision Making Vital Signs Vital Signs: Vital Signs Temperature 36.1 C L 05/15/25 10:53 Pulse Rate 81 05/15/25 10:53 Respiratory Rate 16 05/15/25 10:53 Blood Pressure 137/95 H 05/15/25 10:53 Pulse Oximetry 99 05/15/25 10:53 Oxygen Delivery Room Air 05/15/25 10:53 Temperature 36.1 C L 05/15/25 10:53 Pulse Rate 81 05/15/25 10:53 Respiratory Rate 16 05/15/25 10:53 Blood Pressure 137/95 H 05/15/25 10:53 Pulse Oximetry 99 05/15/25 10:53 Oxygen Delivery Room Air 05/15/25 10:53 Imaging Data Radiologist's impression: EXAMINATION: [id number] DATE: 05/15/2025 11:57 INDICATION: Right posterior and lateral mid back pain post fall TECHNIQUE: A frontal inspiratory view of the chest and 3 views of the right ribs were obtained. COMPARISON: Chest CT dated 06/25/2025 FINDINGS: Age-indeterminate fractures of the anterior right fifth and sixth ribs which appear new since one year prior. Unchanged mild elevation the left hemidiaphragm. Minimal streaky bibasilar atelectasis. No pulmonary edema, pleural effusion or pneumothorax. Heart size is normal. IMPRESSION: 1. Couple age-indeterminate fractures of the anterior right fifth and sixth ribs, new since one year prior. Correlate for point tenderness at this location. 2. Chronic mild elevation left hemidiaphragm with minimal streaky bibasilar atelectasis. No other acute cardiopulmonary disease. EXAMINATION: XR thoracic spine 3V DATE: 05/15/2025 11:58 INDICATION: Posterior lateral right mid back pain post fall TECHNIQUE: One AP, lateral and lateral swimmer's views of the thoracic spine were obtained. COMPARISON: Chest CT dated 06/25/2024 FINDINGS: 20 degrees mid to lower thoracic levocurvature measured between T7 and T11. 17 degree thoracolumbar dextro scoliosis measured between T11 and L3. Thoracic kyphosis with chronic T6 compression fracture with 80% anterior vertebral body height loss. Additional chronic T12 compression fracture with 40% anterior vertebral body height loss. Both fractures appear unchanged since the prior CT. Remaining vertebral body heights are normal. There is multilevel mild disc height loss in the mid to lower thoracic spine. IMPRESSION: 1. Mild S-shaped thoracolumbar scoliosis and moderate thoracic spondylosis with no change in chronic T6 and T12 compression fractures. EXAMINATION: XR knee LT 3V DATE: 05/15/2025 11:58 INDICATION: Left knee pain post fall TECHNIQUE: Anteroposterior, 2 oblique, sunrise and crosstable lateral views of the left knee were obtained COMPARISON: None. FINDINGS: Alignment is normal. No fracture.. Mild joint space narrowing in the medial compartment of the left knee. There is mild to moderate joint space narrowing at the medial side of the patellofemoral compartment where there is irregularity to the articular cortices of the medial trochlea and medial patellar facet suggesting overlying high-grade chondromalacia. Soft tissues are unremarkable. No knee joint effusion. IMPRESSION: 1. No left knee joint effusion or acute osseous abnormality. 2. Osteoarthritis at the left knee, mild to moderate at the medial aspect of the patellofemoral compartment and mild at the medial compartment. Discharge Plan Discharge Clinical Impression: Fall, Fracture of ribs, multiple Patient Disposition: Home Condition: Stable Instructions: Antibiotic Form, Rib Fracture (ED) Patient Language: Turkish Prescriptions: No Action prednisone 20 mg tablet See Rx Instructions .ROUTE .COMPLEX Qty: 18 0RF Rx Instructions: take 2 tabs po daily x 5 days, then 1 tab po daily x 5 days, then 1/2 tab po daily x 6 days aspirin 81 mg tablet,delayed release (DR/EC) 81 mg PO DAILY tizanidine 4 mg tablet 4 mg PO QHS PRN tramadol 50 mg tablet PO duloxetine [Cymbalta] 30 mg capsule,delayed release(DR/EC) 30 mg PO DAILY duloxetine [Cymbalta] 60 mg capsule,delayed release(DR/EC) 60 mg PO BID hydrocodone-acetaminophen 5-325 mg tablet 1 tablet PO QHS PRN gabapentin 300 mg capsule See Rx Instructions .ROUTE .COMPLEX Qty: 60 3RF Dose Instruction: TAKE 2 CAPSULES BY MOUTH EVERY DAY AT BEDTIME Rx Instructions: TAKE 2 CAPSULES BY MOUTH EVERY DAY AT BEDTIME omeprazole 20 mg capsule,delayed release(DR/EC) 20 mg PO DAILY Qty: 90 1RF carvedilol 25 mg tablet 25 mg PO Q12H Qty: 90 3RF Rx Instructions: must administer with a meal/food calcitriol 0.25 mcg capsule See Rx Instructions .ROUTE .COMPLEX Qty: 36 3RF Dose Instruction: TAKE 1 CAPSULE BY MOUTH 3 TIMES A WEEK Rx Instructions: TAKE 1 CAPSULE BY MOUTH 3 TIMES A WEEK atorvastatin 40 mg tablet See Rx Instructions .ROUTE .COMPLEX Qty: 90 3RF Dose Instruction: TAKE 1 TABLET BY MOUTH EVERY DAY AT BEDTIME Rx Instructions: TAKE 1 TABLET BY MOUTH EVERY DAY AT BEDTIME Follow-up/Referrals: Je Olivera MD [Physician] - Time of Disposition: 12:40
== END 2025-05-15 12:46 | disposition home or self-care (01) ==
PROVIDERS: Emergency Provider Nurse Practitioner
DX: S22.41XA Multiple fractures of ribs, right side, initial encounter for closed fracture (principal); W01.0XXA Fall on same level from slipping, tripping and stumbling without subsequent striking against object, initial encounter; M25.562 Pain in left knee; M54.6 Pain in thoracic spine; F17.210 Nicotine dependence, cigarettes, uncomplicated; I12.9 Hypertensive chronic kidney disease with stage 1 through stage 4 chronic kidney disease, or unspecified chronic kidney disease; E11.22 Type 2 diabetes mellitus with diabetic chronic kidney disease; N18.9 Chronic kidney disease, unspecified; G62.9 Polyneuropathy, unspecified; F41.9 Anxiety disorder, unspecified; M81.0 Age-related osteoporosis without current pathological fracture; Z79.82 Long term (current) use of aspirin
CPT/HCPCS: 71101; 72072; 73562; 99214; G0463